=== PATIENT | male | born 1975 | race Two or more races ===

== ENCOUNTER 2024-04-13 13:58 | Inpatient (IN) | payer BC, OTHER ==
[~2024-04-13] VITALS: Ht 180.3 cm; Wt 142.4 kg
--- NOTE | 2024-04-13 15:22 | ED.PDOC ---
GI ASSESSMENT HPI Comments TAMY: HPI: Poor Historian. HPI: 48 y/o M, presents to the ED for CC of abdominal pain. Patient states, that he has been experiencing abdominal pain [id number] with associated symptoms of diarrhea [id number]. Patient comments on, symptoms of abdominal distension that is firm to touch which is usually soft upon palpation. Patient relays, diarrhea to be yellow in appearance. Patient relays, shortness of breath with light exertion. Patient denies fever, chills, body-aches, or N/V/D. No other symptoms or modifying factors at this time. Initial Vital Signs: Temp : 97.2 BP: 135/110 HR: 113 RR: 16 SpO2: 97 Past Medical History: Denies any Past Surgical History: Denies any Social History: Denies smoking, ETOH, or drug use. Medications: Denies any Allergies: NKDA REVIEW OF SYSTEMS: CONSTITUTIONAL: Denies acute: fever, diaphoresis, chills, generalized weakness. HEAD: Denies acute: headache, photophobia Eyes: Denies acute: Double vision, vision loss, eye pain, eye discharge. EARS: Denies acute: tinnitus, hearing loss, ear discharge, ear pain, THROAT: Denies acute: sore throat, swelling, difficulty swallowing , pain with swallowing, change in voice. NECK: Denies acute: neck pain, neck swelling, stiff neck. HEART: Denies acute : chest pain, palpitations, LUNGS: Denies acute: SOB, wheezing, cough, hemoptysis ABDOMEN: Denies acute: Nausea, Vomiting, melena , hematemesis, hematochezia SKIN: Denies acute: rash, redness, lesions, itchiness. EXTREMITIES: Denies acute: calf pain, numbness, tingling, weakness, denies pain in extremity. Denies acute: Low back pain. Neuro: Denies acute: focal neurological deficit, motor or sensory focal neurological deficit, tremors, seizure like activity, confusion, dizziness, change in mental status, loss of bowel or bladder function, cauda equina like symptoms. : Denies acute: dysuria, hematuria, flank pain, increase in urinary frequency. PSYCH: Denies acute: hallucination, suicidal ideation, homicidal ideation. PHYSICAL EXAM: General: no acute distress, awake and alert. Head: normocephalic, atraumatic. Neck: supple, trachea is midline, no swelling. Throat: Normal phonation. Eyes:, no erythema, no purulent discharge, no proptosis, no icterus. Heart: regular rate, regular rhythm, no significant murmur appreciated. Lungs: no apparent respiratory distress, Able to speak in full sentences. No wheezing, no rhonchi, no crackles. No stridors Clear to auscultation bilaterally. Abdomen: Epigastric tender to palpation, non distended, soft, no guarding, no rebound, + bowel sounds. Obese Neuro: Awake, Alert, oriented to name, self, situation, follows commands GCS=15. Speech is normal. Skin: no petechia, no purpura, no cyanosis, non-pale, not jaundice. Lower extremities: --trace- Pitting edema no deformity, no focal swelling, no calf TTP. Makes eye contact. moves all four extremities. Face: no apparent facial droop. Ambulating independently in the ED. ED COURSE: Chief Complaint: Abdominal Pain Time Seen by MD: 15:00 Reviewed Notes: Nurses Notes, Medications, Allergies Allergies: Coded Allergies: NO KNOWN ALLERGIES (Unverified , 04/13/24) Information Source: Patient Mode of Arrival: Ambulatory Timing: Weeks Duration: Since onset Prehospital treatment: None Quality: None Vomitus: None Stool: Watery, Yellow Severity: Moderate Recent: None Recent Hx of: None Pain Location: Epigastric Modifying Factors: Nothing Associated sign and symptoms: None Was a procedure done? Was a procedure done?: No GI differential Dx Differential Diagnosis: Other (DDX include but not limited to diverticulitis, colitis, gastroenteritis, acute abdomen, SBO, enteritis, constipation, volvulus, appendicitis, Gallbladder disease, choledocolithiasis, ascending cholangitis, pancreatitis, intraAbdominal mass/neoplasm, hepatitis, UTI, pylonephritis, kidney stone, aneurysm, dissection, Inflammatory bowel disease, gastroparesis, ischemic bowel.) X-Ray, Labs, Meds, VS Vital Signs Date Time Temp Pulse Resp B/P (MAP) Pulse Ox O2 Delivery O2 Flow Rate FiO2 04/13/24 15:12 97.2 113 16 146/102 (117) 97 Lab Test 04/13/24 16:00 04/13/24 15:29 Range/Units Urine Color Yellow Yellow Urine Clarity Turbid H Clear Urine pH 6.0 5.0-9.0 Urine Specific [place] 1.035 1.001-1.035 Urine Protein 1+ H Negative Urine Ketones Negative Negative Urine Blood Negative Negative /uL Urine Nitrite Negative Negative Urine Bilirubin 1+ Negative Urine Urobilinogen 8 H Negative mg/dL Urine Leukocyte Esterase 2+ Negative /uL Urine RBC 9 0 - 3 /hpf Urine Microscopic WBC 45 H 0-3 /HPF Urine Squamous Epithelial Cells Few <5 /hpf Urine Bacteria None seen None Seen /hpf Urine Hyaline Casts Few 0 - 2 /lpf Urine Mucus Many None Seen Urine Glucose Normal Normal mg/dL White Blood Count 10.8 4.4-10.8 10^3/uL Red Blood Count 5.19 4.5-5.90 10^6/uL Hemoglobin 13.8 13.5-17.5 g/dL Hematocrit 41.0 41.0-53.0 % Mean Corpuscular Volume 79.0 L 80.0-100.0 fL Mean Corpuscular Hemoglobin 26.6 L 28.0-32.0 pg Mean Corpuscular Hemoglobin Concent 33.7 32.0-36.0 g/dL Red Cell Distribution Width 14.0 11.8-14.3 % Platelet Count 476 H 140-450 10^3/uL Mean Platelet Volume 8.5 6.9-10.8 fL Neutrophils (%) (Auto) 76.8 37.0-80.0 % Lymphocytes (%) (Auto) 12.1 10.0-50.0 % Monocytes (%) (Auto) 9.1 0.0-12.0 % Eosinophils (%) (Auto) 1.3 0.0-7.0 % Basophils (%) (Auto) 0.7 0.0-2.0 % Neutrophils # (Auto) 8.3 1.6-8.6 10 ^3/uL Lymphocytes # (Auto) 1.3 0.4-5.4 10 ^3/uL Monocytes # (Auto) 1.0 0-1.3 10 ^3/uL Eosinophils # (Auto) 0.1 0-0.8 10 ^3/uL Basophils # (Auto) 0.1 0-0.2 10 ^3/uL Nucleated Red Blood Cells 0.3 % Sodium Level 135 L 136-145 mmol/L Potassium Level 4.3 3.5-5.1 mmol/L Chloride Level 100 98-107 mmol/L Carbon Dioxide Level 26 20-31 mmol/L Anion Gap 9 5-15 Blood Urea Nitrogen 20 9-23 mg/dL Creatinine 1.24 0.700-1.30 mg/dL Glomerular Filtration Rate Calc 72 >90 mL/min BUN/Creatinine Ratio 16.1 10.0-20.0 Serum Glucose 103 74-106 mg/dL Lactic Acid Level 1.2 0.4-2.0 mmol/L Calcium Level 9.1 8.7-10.4 mg/dL Total Bilirubin 0.6 0.2-1.0 mg/dL Aspartate Amino Transferase (AST) 13 13-40 U/L Alanine Aminotransferase (ALT) 10 7-40 U/L Alkaline Phosphatase 76 46-116 U/L B-Type Natriuretic Peptide 13.48 0-100 pg/mL Total Protein 6.7 5.7-8.2 g/dL Albumin 3.9 3.2-4.8 g/dL Lipase 31 12-53 U/L [place] [address] Ph: [phone] DIAGNOSTIC IMAGING Diagnostic Imaging Report : [id number] Signed PATIENT: MARGE MORELOS ACCT: [id number] UNIT: [id number] : 1975 LOC: ER ROOM / BED: / AGE / SEX: 48 / M ADM STATUS: REG ER SERVICE 1508 ORDERING PHYSICIAN: JOE CONTRERAS DO PROCEDURE(s): ABPL - CT AB PEL WO CON-NO ORAL OR IV REASON: abd pain ORDER NUMBER(s): [id number], ACCESSION NUMBER(s): [id number] Exam: CT CT AB PEL WO CON-NO ORAL OR IV History: abd pain Comparison Study: None Technique: Multidetector spiral CT of the abdomen and pelvis was performed from lung bases to pubic symphysis. Imaging was performed without IV contrast. Axial, coronal and sagittal multiplanar reformats were obtained from the axial data set by the technologist. Radiation dose : Abdomen/Pelvis: CTDIvol 25.78 mGy, DLP 1624.26 mGy*cm. Findings: Evaluation of solid organs is limited due to lack of intravenous contrast use. Lung Bases: No acute or significant lung base finding. Normal heart size. No pleural or pericardial effusion. Liver: The liver is normal in size. No focal lesions. Gallbladder and biliary Tree: Unremarkable Spleen: Unremarkable Pancreas: The pancreas is grossly normal in appearance. Adrenal Glands: Unremarkable Kidneys: Kidneys are grossly normal without calculi or hydronephrosis. Bladder: Grossly unremarkable for degree of distention. Bowel: The stomach is grossly normal in appearance. There is wall thickening in the sigmoid colon 74 mm segment. The appendix is not visualized; however, no secondary findings of acute appendicitis identified. Ascites: Large amount of abdominal and pelvic ascites. Lymphadenopathy: Prominent lymph nodes at the aortic bifurcation and along the left iliac chain measuring up to 16 mm in short axis. Abdominal wall and Mesentery: Extensive mesenteric stranding and nodularity. Vasculature: The visualized abdominal aorta is normal in size and caliber. Evaluation of abdominal and pelvic vessels is limited due to lack of intravenous contrast. Pelvic Organs: Unremarkable Musculoskeletal: No aggressive focal bony lesions, acute fractures or dislocation. IMPRESSION: 1. Focal wall thickening in the sigmoid colon concerning for colonic malignancy. Adjacent stranding, superimposed infectious/inflammatory process is not entirely excluded. Prominent lymph nodes in the upper pelvis near the aortic bifurcation and along the left iliac chain concerning for metastatic disease. Likely malignant ascites. Mesenteric nodularity could represent metastatic disease. Evaluation of the solid organs is limited without intravenous contrast. Consider further evaluation with CT of the chest, abdomen and pelvis with contrast. Alternatively recommend PET-CT. GI evaluation with colonoscopy and biopsy is recommended. Diagnostic paracentesis may provide malignant diagnosis. Radiation optimization: All CT scans at this facility use at least one of these dose optimization techniques: Automated exposure control mA and/or kV adjustment per patient size (includes targeted exams where dose is matched to clinical indication) or iterative reconstruction. HS:Y ATED BY: NETO WANG MD DICTATED DATE/TIME: 04/13/24 154 SIGNED BY: NETO WANG MD SIGNED DATE/TIME: 04/13/24 1547 CC: Time of 1ST Reevaluation: 15:30 Reevaluation 1ST: Unchanged Time of 2ND Reevaluation: 17:19 (The case was discussed with the General surgery on-call team (HPI, physical exam, labs and diagnostic tests that were available at the time of disposition, ED course, treatment plan) on the phone. They agreed with our management recommend to keep the patient NPO after midnight and IV antibiotics and they will follow in consult. Dr. Alexander. ) Patient Education/Counseling: Diagnosis, Treatment Family Education/Counseling: No Family Present Comments Patient presented with the above HPI.---ABDOMINAL PAIN ---workup was initiated. patient was found with the above mentioned diagnosis. the following medications were ordered: please refer to order lists of meds and tests obtained by myself Dr. Contreras. Patient ED course and VS have been stabilized. Patient has been reassessed in the ED and remained in a stable condition. Pertinent incidental findings were discussed with the patient and/or family. Patient/family voices understanding and is agreeable with plan. Patient has been observed in the ED adequate length of time to insure improvement/stability. Escalation of care considered: Consideration of escalation to observation or admission Patient was ADMITTED to the medicine team for further evaluation and treatment of their presentation. General surgery was consulted Dr. Alexander came and evaluated the patient at bedside. All the reports of any imaging studies that were ordered by myself were reviewed by myself. Departure 1 Departure Time of Disposition: 17:09 Impression: Primary Impression: Metastatic disease Disposition: ADMITTED INPATIENT Condition: Guarded Additional Instructions: [place] [address] Ph: [phone] DIAGNOSTIC IMAGING Diagnostic Imaging Report : [id number] Signed PATIENT: MARGE MORELOS ACCT: [id number] UNIT: [id number] : 1975 LOC: ER ROOM / BED: / AGE / SEX: 48 / M ADM STATUS: REG ER SERVICE 1505 ORDERING PHYSICIAN: JOE CONTRERAS DO PROCEDURE(s): ABPL - CT AB PEL WO CON-NO ORAL OR IV REASON: abd pain ORDER NUMBER(s): [id number], ACCESSION NUMBER(s): [id number] Exam: CT CT AB PEL WO CON-NO ORAL OR IV History: abd pain Comparison Study: None Technique: Multidetector spiral CT of the abdomen and pelvis was performed from lung bases to pubic symphysis. Imaging was performed without IV contrast. Axial, coronal and sagittal multiplanar reformats were obtained from the axial data set by the technologist. Radiation dose : Abdomen/Pelvis: CTDIvol 25.78 mGy, DLP 1624.26 mGy*cm. Findings: Evaluation of solid organs is limited due to lack of intravenous contrast use. Lung Bases: No acute or significant lung base finding. Normal heart size. No pleural or pericardial effusion. Liver: The liver is normal in size. No focal lesions. Gallbladder and biliary Tree: Unremarkable Spleen: Unremarkable Pancreas: The pancreas is grossly normal in appearance. Adrenal Glands: Unremarkable Kidneys: Kidneys are grossly normal without calculi or hydronephrosis. Bladder: Grossly unremarkable for degree of distention. Bowel: The stomach is grossly normal in appearance. There is wall thickening in the sigmoid colon 74 mm segment. The appendix is not visualized; however, no secondary findings of acute appendicitis identified. Ascites: Large amount of abdominal and pelvic ascites. Lymphadenopathy: Prominent lymph nodes at the aortic bifurcation and along the left iliac chain measuring up to 16 mm in short axis. Abdominal wall and Mesentery: Extensive mesenteric stranding and nodularity. Vasculature: The visualized abdominal aorta is normal in size and caliber. Evaluation of abdominal and pelvic vessels is limited due to lack of intravenous contrast. Pelvic Organs: Unremarkable Musculoskeletal: No aggressive focal bony lesions, acute fractures or disl ocation. IMPRESSION: 1. Focal wall thickening in the sigmoid colon concerning for colonic malignancy. Adjacent stranding, superimposed infectious/inflammatory process is not entirely excluded. Prominent lymph nodes in the upper pelvis near the aortic bifurcation and along the left iliac chain concerning for metastatic disease. Likely malignant ascites. Mesenteric nodularity could represent metastatic disease. Evaluation of the solid organs is limited without intravenous contrast. Consider further evaluation with CT of the chest, abdomen and pelvis with contrast. Alternatively recommend PET-CT. GI evaluation with colonoscopy and biopsy is recommended. Diagnostic paracentesis may provide malignant diagnosis. Radiation optimization: All CT scans at this facility use at least one of these dose optimization techniques: Automated exposure control mA and/or kV adjustment per patient size (includes targeted exams where dose is matched to clinical indication) or iterative reconstruction. HS:Y ATED BY: NETO WANG MD DICTATED DATE/TIME: 04/13/24 3722 SIGNED BY: NETO WANG MD SIGNED DATE/TIME: 04/13/241546 CC: Discharged With: Self Critical Care Note Critical Care Time?: No Heart Score Heart Score: Heart Score Response (Comments) Value History N/A 0 EKG N/A 0 Age N/A 0 Risk Factors N/A 0 Troponin N/A 0 Total 0 I personally scribed for JOE CONTRERAS DO ([email or web address]) on 04/13/24 at 15:21. Electronically submitted by Sapna Kuo ([email or web address]). I personally scribed for OJE CONTRERAS DO ([email or web address]) on 04/13/24 at 16:02. Electronically submitted by Nir Weathers ([email or web address]). I personally scribed for JOE CONTRERAS DO ([email or web address]) on 04/13/24 at 17:12. Electronically submitted by Sapna Kuo ([email or web address]). JOE CONTRERAS DO Apr 13, 2024 15:21
--- NOTE | 2024-04-13 15:49 | DVH ---
Exam: CT CT AB PEL WO CON-NO ORAL OR IV History: abd pain Comparison Study: None Technique: Multidetector spiral CT of the abdomen and pelvis was performed from lung bases to pubic symphysis. Imaging was performed without IV contrast. Axial, coronal and sagittal multiplanar reform ats were obtained from the axial data set by the technologist. Radiation dose : Abdomen/Pelvis: CTDIvol 25.78 mGy, DLP 1624.26 mGy*cm. Findings: Evaluation of solid organs is limited due to lack of intravenous contrast use. Lung Bases: No acute or significant lung base finding. Normal heart size. No pleural or pericardial effusion. Liver: The liver is normal in size. No focal lesions. Gallbladder and biliary Tree: Unremarkable Spleen: Unremarkable Pancreas: The pancreas is grossly normal in appearance. Adrenal Glands: Unremarkable Kidneys: Kidneys are grossly normal without calculi or hydronephrosis. Bladder: Grossly unremarkable for degree of distention. Bowel: The stomach is grossly normal in appearance. There is wall thickening in the sigmoid colon 74 mm segment. The appendix is not visualized; however, no secondary findings of acute appendicitis [place] ntified. Ascites: Large amount of abdominal and pelvic ascites. Lymphadenopathy: Prominent lymph nodes at the aortic bifurcation and along the left iliac chain measu ring up to 16 mm in short axis. Abdominal wall and Mesentery: Extensive mesenteric stranding and nodularity. Vasculature: The visualized abdominal aorta is normal in size and caliber. Evaluation of abdominal a nd pelvic vessels is limited due to lack of intravenous contrast. Pelvic Organs: Unremarkable Musculoskeletal: No aggressive focal bony lesions, acute fractures or dislocation. IMPRESSION: 1. Focal wall thickening in the sigmoid colon concerning for colonic malignancy. Adjacent stranding, superimposed infectious/inflammatory process is not entirely excluded. Prominent lymph nodes in the upper pelvis near the aortic bifurcation and along the left iliac chain concerning for metastatic dis ease. Likely malignant ascites. Mesenteric nodularity could represent metastatic disease. Evaluation of the solid organs is limited without intravenous contrast. Consider further evaluation with CT of t he chest, abdomen and pelvis with contrast. Alternatively recommend PET-CT. GI evaluation with colon oscopy and biopsy is recommended. Diagnostic paracentesis may provide malignant diagnosis. Radiation optimization: All CT scans at this facility use at least one of these dose optimization emerald hniques: Automated exposure control mA and/or kV adjustment per patient size (includes targeted exams where dose is matched to clinical indication) or iterative reconstruction. HS:Y
[2024-04-13 15:50] LABS: Basophils # (auto) 0.1 10 ^3/uL (0-0.2); Eosinophils # (auto) 0.1 10 ^3/uL (0-0.8); Eosinophils % (auto) 1.3 % (0.0-7.0); Lymphocytes # (auto) 1.3 10 ^3/uL (0.4-5.4); Mean Corpuscular Hgb Conc. 33.7 g/dL (32.0-36.0)
[2024-04-13 15:51] LABS: Basophils % (auto) 0.7 % (0.0-2.0); Hemoglobin 13.8 g/dL (13.5-17.5); Lymphocytes % (auto) 12.1 % (10.0-50.0); Mean Corpuscular Hemoglobin 26.6 pg (28.0-32.0); Monocytes % (auto) 9.1 % (0.0-12.0); Neutrophils # (auto) 8.3 10 ^3/uL (1.6-8.6); Neutrophils % (auto) 76.8 % (37.0-80.0); Nucleated Red Blood Cells % 0.3 %; Platelet Count (auto) 476 10^3/uL (140-450); Red Blood Cells 5.19 10^6/uL (4.5-5.90); White Blood Cell 10.8 10^3/uL (4.4-10.8)
[2024-04-13 16:19] LABS: Alanine Aminotransferase 10 U/L (7-40); Albumin 3.9 g/dL (3.2-4.8); Alkaline Phosphatase 76 U/L (46-116); Anion Gap 9 (5-15); Aspartate Aminotransferase 13 U/L (13-40); BUN/Creatinine Ratio 16.1 (10.0-20.0); Bilirubin, Total 0.6 mg/dL (0.2-1.0); Blood Urea Nitrogen 20 mg/dL (9-23); Calcium 9.1 mg/dL (8.7-10.4); Carbon Dioxide 26 mmol/L (20-31); Chloride 100 mmol/L (98-107); Glucose 103 mg/dL (74-106); Lipase 31 U/L (12-53); Potassium 4.3 mmol/L (3.5-5.1); Sodium 135 mmol/L (136-145); Total Protein 6.7 g/dL (5.7-8.2)
[2024-04-13 16:40] LABS: Urine Bacteria None Seen /hpf (None Seen)
[2024-04-13 16:56] LABS: Urine Blood Negative /uL (Negative); Urine Clarity Turbid (Clear); Urine Color Yellow (Yellow); Urine Hyaline Cast FEW /lpf (0 - 2); Urine Mucus MANY (None Seen); Urine Protein, UAD 1+ (Negative); Urine Specific Gravity 1.035 (1.001-1.035); Urine Squamous Epithelial Cell FEW /hpf (<5); Urine Urobilinogen 8 mg/dL (Negative); Urine WBC 45 /HPF (0-3)
--- NOTE | 2024-04-13 19:39 | DVHINCON2 ---
Date of service: Apr 13, 2024 Allergies: Coded Allergies: NO KNOWN ALLERGIES (Unverified , 04/13/24) Vital Signs Vital Signs Date Time Temp Pulse Resp B/P (MAP) Pulse Ox O2 Delivery O2 Flow Rate FiO2 04/13/24 15:12 97.2 113 16 146/102 (117) 97 Labs/Diagnostic Data Labs Test 04/13/24 16:00 04/13/24 15:29 Range/Units Urine Color Yellow Yellow Urine Clarity Turbid H Clear Urine pH 6.0 5.0-9.0 Urine Specific [place] 1.035 1.001-1.035 Urine Protein 1+ H Negative Urine Ketones Negative Negative Urine Blood Negative Negative /uL Urine Nitrite Negative Negative Urine Bilirubin 1+ Negative Urine Urobilinogen 8 H Negative mg/dL Urine Leukocyte Esterase 2+ Negative /uL Urine RBC 9 0 - 3 /hpf Urine Microscopic WBC 45 H 0-3 /HPF Urine Squamous Epithelial Cells Few <5 /hpf Urine Bacteria None seen None Seen /hpf Urine Hyaline Casts Few 0 - 2 /lpf Urine Mucus Many None Seen Urine Glucose Normal Normal mg/dL White Blood Count 10.8 4.4-10.8 10^3/uL Red Blood Count 5.19 4.5-5.90 10^6/uL Hemoglobin 13.8 13.5-17.5 g/dL Hematocrit 41.0 41.0-53.0 % Mean Corpuscular Volume 79.0 L 80.0-100.0 fL Mean Corpuscular Hemoglobin 26.6 L 28.0-32.0 pg Mean Corpuscular Hemoglobin Concent 33.7 32.0-36.0 g/dL Red Cell Distribution Width 14.0 11.8-14.3 % Platelet Count 476 H 140-450 10^3/uL Mean Platelet Volume 8.5 6.9-10.8 fL Neutrophils (%) (Auto) 76.8 37.0-80.0 % Lymphocytes (%) (Auto) 12.1 10.0-50.0 % Monocytes (%) (Auto) 9.1 0.0-12.0 % Eosinophils (%) (Auto) 1.3 0.0-7.0 % Basophils (%) (Auto) 0.7 0.0-2.0 % Neutrophils # (Auto) 8.3 1.6-8.6 10 ^3/uL Lymphocytes # (Auto) 1.3 0.4-5.4 10 ^3/uL Monocytes # (Auto) 1.0 0-1.3 10 ^3/uL Eosinophils # (Auto) 0.1 0-0.8 10 ^3/uL Basophils # (Auto) 0.1 0-0.2 10 ^3/uL Nucleated Red Blood Cells 0.3 % Sodium Level 135 L 136-145 mmol/L Potassium Level 4.3 3.5-5.1 mmol/L Chloride Level 100 98-107 mmol/L Carbon Dioxide Level 26 20-31 mmol/L Anion Gap 9 5-15 Blood Urea Nitrogen 20 9-23 mg/dL Creatinine 1.24 0.700-1.30 mg/dL Glomerular Filtration Rate Calc 72 >90 mL/min BUN/Creatinine Ratio 16.1 10.0-20.0 Serum Glucose 103 74-106 mg/dL Lactic Acid Level 1.2 0.4-2.0 mmol/L Calcium Level 9.1 8.7-10.4 mg/dL Total Bilirubin 0.6 0.2-1.0 mg/dL Aspartate Amino Transferase (AST) 13 13-40 U/L Alanine Aminotransferase (ALT) 10 7-40 U/L Alkaline Phosphatase 76 46-116 U/L B-Type Natriuretic Peptide 13.48 0-100 pg/mL Total Protein 6.7 5.7-8.2 g/dL Albumin 3.9 3.2-4.8 g/dL Lipase 31 12-53 U/L Assessment [id number] R/O SIGMOID COLITIS R/O COLONIC MALIGNANCY KEEP NPO IV ABX CLOSE OBSERVATION GI EVAL Plan discussed with: Patient JOEL BURNETT MD Apr 13, 2024 19:39
[2024-04-13 19:48] VITALS: PULSE 109; RESP 18; O2SAT 98
--- NOTE | 2024-04-13 20:18 | DVHINCON2 ---
DATE OF CONSULTATION: 04/13/2024 HISTORY OF PRESENT ILLNESS: This 48-year-old, coming in with abdominal pain, going on for 2 or 3 weeks, but got worse, came to the Emergency Room. Some nausea. No vomiting. He has some diarrhea off-and-on with bleeding as well. No fever or chills. No hematemesis. PAST MEDICAL HISTORY: No diabetes or hypertension. PAST SURGICAL HISTORY: No significant surgical history. PHYSICAL EXAMINATION: VITAL SIGNS: Afebrile, stable signs. HEENT: With no evidence of pallor, cyanosis, or jaundice. NECK: Supple, nontender with no thyromegaly or lymphadenopathy. CHEST AND LUNGS: Clear. HEART: Within normal limits. ABDOMEN: Soft. He is tender, but no rebound. EXTREMITIES: Unremarkable. NEUROLOGIC: Intact. DIAGNOSTIC DATA: The CT scan is suggesting that there is thickening of the sigmoid colon with a concern for colonic malignancy. There is also adjacent stranding suggesting inflammatory reason for the colonic thickening, and lymph nodes were also identified with a possibility of metastatic disease and the possibility of malignant ascites. PLAN: So, based upon this, the patient needs to be managed conservatively. At this time, he needs to be kept n.p.o., manage the possible infection, and then GI evaluation to determine the need for a colonoscopy and ongoing evaluation for a possibility of surgery as indicated. MD ANALI Cabrera/RENY TID: [id number] RECEIPT: [id number] cc: JOE CONTRERAS
[2024-04-13] MEDS: PIPERACILLIN-TAZOB 3.375GM 100 ML IV ONE (20:21)
[2024-04-13] MEDS: SODIUM CHLORIDE 0.9% 1,000 ML IV ONE (21:15)
--- NOTE | 2024-04-13 21:43 | DVH ---
INDICATION: ASCITES TECHNIQUE: Multiple grayscale sonographic images obtained for evaluation of ascites. COMPARISON: CT abdomen and pelvis 04/13/2023 FINDINGS /impression: Moderate to large volume ascites noted in all 4 abdominal quadrants.
[2024-04-13] MEDS: CIPROFLOXACIN 400MG/200ML 200 ML IV SCH (23:36)
[2024-04-14] MEDS: ACETAMINOPHEN 325 MG TAB PO SCH
[2024-04-14] MEDS: metroNIDAZOLE 500MG/100ML 100 ML IV SCH (00:54)
--- NOTE | 2024-04-14 02:20 | DVHHPRES ---
History of Present Illness Resident Creating Document: GREGORIO ROWLEY RESIDENT Reason for Visit: abdominal pain History of Present Illness A 48-year-old male with no known past medical history presents with a two-week history of worsening abdominal distention and approximately one month of intermittent diarrhea, sometimes bloody. He also reports abdominal pain that has become progressively more severe over the past two to three weeks, as well as occasional nausea but no vomiting. He denies fever, chills, or any significant weight loss He does note some shortness of breath on light exertion. He has no known medication use, denies any allergies, and denies smoking, alcohol, or illicit drug use. Review of Systems Constitutional: No: Fever, Chills, Sweats, Weakness, Malaise, Other Eyes: No: Pain, Vision change, Conjunctivae inflammation, Eyelid inflammation, Other, Redness ENT: No: Ear pain, Ear discharge, Nose pain, Nose discharge, Nose congestion, Mouth pain, Mouth swelling, Throat pain, Throat swelling, Other Respiratory: No: Cough, Dry, Shortness of breath, SOB with excertion, Wheezing, Hemoptysis, Pleuritic Pain, Sputum, Wheezing, Other Cardiovascular: No: Chest Pain, Palpitations, Orthopnea, Paroxysmal Noc. Dyspnea, Edema, Lt Headedness, Other Gastrointestinal: Nausea, Abdominal Pain, Diarrhea, Hematochezia; No: Vomiting, Constipation, Melena, Other Genitourinary: No Dysuria, No Frequency, No Incontinence, No Hematuria, No Retention, No Other Musculoskeletal: No: other, neck pain, shoulder pain, arm pain, back pain, hand pain, leg pain, foot pain Skin: No: Rash, Lesions, Jaundice, Bruising, Other Neurological: No: Weakness, Numbness, Incoordination, Change in speech, Confusion, Seizures, Other Allergies: Coded Allergies: NO KNOWN ALLERGIES (Unverified , 04/13/24) Medications Current Medications Medications Dose Ordered Sig/Tamy Route Start Time Stop Time Status Last Admin Dose Admin Acetaminophen 325 mg Q6HP PO 04/14/24 00:00 Metronidazole 100 ml @ 100 mls/hr Q8HR IV 04/13/24 22:00 04/14/24 00:54 100 MLS/HR Ciprofloxacin 200 ml @ 200 mls/hr Q8HR IV 04/13/24 22:00 04/13/24 23:36 200 MLS/HR Exam Vital Signs Vital Signs Date Time Temp Pulse Resp B/P (MAP) Pulse Ox O2 Delivery O2 Flow Rate FiO2 04/14/24 00:50 98.6 101 18 137/91 (106) 96 98.6 04/13/24 19:48 Room Air* 0 21 General Appearance: Alert, Oriented X3, Cooperative, No acute distress HEENT: Atraumatic, PERRLA, EOMI Respiratory: Clear to auscultation, Normal air movement Cardiovascular: Regular rate, Normal S1 Abdominal: Other (distended, tender at generalized palpation, no peritoneal signs ) Extremities: No clubbing, No cyanosis Skin: No rashes, No breakdown Neuro: Normal gait, Normal speech Psych/Mental Status: Mental status NL, Mood NL Labs/Xrays Labs Test 04/13/24 21:56 04/13/24 16:00 04/13/24 15:29 Range/Units Carcinoembryonic Antigen 18.71 <=5.0 ng/mL Urine Color Yellow Yellow Urine Clarity Turbid H Clear Urine pH 6.0 5.0-9.0 Urine Specific [place] 1.035 1.001-1.035 Urine Protein 1+ H Negative Urine Ketones Negative Negative Urine Blood Negative Negative /uL Urine Nitrite Negative Negative Urine Bilirubin 1+ Negative Urine Urobilinogen 8 H Negative mg/dL Urine Leukocyte Esterase 2+ Negative /uL Urine RBC 9 0 - 3 /hpf Urine Microscopic WBC 45 H 0-3 /HPF Urine Squamous Epithelial Cells Few <5 /hpf Urine Bacteria None seen None Seen /hpf Urine Hyaline Casts Few 0 - 2 /lpf Urine Mucus Many None Seen Urine Glucose Normal Normal mg/dL White Blood Count 10.8 4.4-10.8 10^3/uL Red Blood Count 5.19 4.5-5.90 10^6/uL Hemoglobin 13.8 13.5-17.5 g/dL Hematocrit 41.0 41.0-53.0 % Mean Corpuscular Volume 79.0 L 80.0-100.0 fL Mean Corpuscular Hemoglobin 26.6 L 28.0-32.0 pg Mean Corpuscular Hemoglobin Concent 33.7 32.0-36.0 g/dL Red Cell Distribution Width 14.0 11.8-14.3 % Platelet Count 476 H 140-450 10^3/uL Mean Platelet Volume 8.5 6.9-10.8 fL Neutrophils (%) (Auto) 76.8 37.0-80.0 % Lymphocytes (%) (Auto) 12.1 10.0-50.0 % Monocytes (%) (Auto) 9.1 0.0-12.0 % Eosinophils (%) (Auto) 1.3 0.0-7.0 % Basophils (%) (Auto) 0.7 0.0-2.0 % Neutrophils # (Auto) 8.3 1.6-8.6 10 ^3/uL Lymphocytes # (Auto) 1.3 0.4-5.4 10 ^3/uL Monocytes # (Auto) 1.0 0-1.3 10 ^3/uL Eosinophils # (Auto) 0.1 0-0.8 10 ^3/uL Basophils # (Auto) 0.1 0-0.2 10 ^3/uL Nucleated Red Blood Cells 0.3 % Sodium Level 135 L 136-145 mmol/L Potassium Level 4.3 3.5-5.1 mmol/L Chloride Level 100 98-107 mmol/L Carbon Dioxide Level 26 20-31 mmol/L Anion Gap 9 5-15 Blood Urea Nitrogen 20 9-23 mg/dL Creatinine 1.24 0.700-1.30 mg/dL Glomerular Filtration Rate Calc 72 >90 mL/min BUN/Creatinine Ratio 16.1 10.0-20.0 Serum Glucose 103 74-106 mg/dL Lactic Acid Level 1.2 0.4-2.0 mmol/L Calcium Level 9.1 8.7-10.4 mg/dL Total Bilirubin 0.6 0.2-1.0 mg/dL Aspartate Amino Transferase (AST) 13 13-40 U/L Alanine Aminotransferase (ALT) 10 7-40 U/L Alkaline Phosphatase 76 46-116 U/L B-Type Natriuretic Peptide 13.48 0-100 pg/mL Total Protein 6.7 5.7-8.2 g/dL Albumin 3.9 3.2-4.8 g/dL Lipase 31 12-53 U/L Assessment/Plan Assessment/Plan CT Abdomen/Pelvis: Focal wall thickening in the sigmoid colon concerning for colonic malignancy. Adjacent stranding suggests possible superimposed infl ammatory/infectious process. Prominent lymph nodes near the aortic bifurcation and left iliac chain, suspicious for metastatic disease. Possible malignant ascites #Suspected colonic malignancy #Possible metastatic disease given enlarged lymph nodes and possible ascites. #Possible colitis #GI bleeding: hematochezia due to possible colon Ca Admit Med/Surg NPO IV Fluids IV ciprofloxacin and metronidazole GI consultation for definitive evaluation (colonoscopy and biopsy) to confirm malignancy or other pathology. Surgery consultation to assess potential need for operative intervention depending on biopsy results and overall clinical status. Further imaging: Obtain contrast-enhanced CT of the chest, abdomen, and pelvis) to stage disease and evaluate for metastatic spread. Tumor markers and stool studies: Await results (AFP, CA 19-9, stool WBC/culture, occult blood) to guide further management. Paracentesis if ascites is significant, to differentiate malignant from infectious or cirrhotic etiologies. Case discussed with Dr Valenzuela Time spent on care 23 min Full code Plan discussed with: Patient, Other (rn) My Orders Orders - GREGORIO ROWLEY RESIDENT Procedure Category Date Status Time Admit ADMIT 04/13/24 Transmitted 21:03 Npo After Midnight DIET 04/14/24 Transmitted Breakfast Sodium Chloride 0.9% PHA 04/13/24 In Process 21:15 Stool Occult Blood LAB 04/13/24 Logged 21:03 Stool Wbc LAB 04/13/24 Logged 21:03 Stool Bacterial CHUNG 04/13/24 Logged Culture 21:03 * Gi [employer] CONS 04/13/24 Transmitted 21:03 Carbohydrate Antigen LAB 04/13/24 In Process 19-9 Afp Serum Tumor Marker LAB 04/13/24 In Process 21:03 Acetaminophen Tablet PHA 04/14/24 In Process (Tylenol Tablet) 00:00 Metronidazole PHA 04/13/24 In Process 500mg/100ml (Flagyl 22:00 Paracentesis US 04/14/24 Logged 07:00 Ciprofloxacin PHA 04/13/24 In Process 400mg/200ml (Cipro Iv) 22:00 Ct Chest/Ab/Pl W Con- CT 04/13/24 Taken Iv Only 21:42 Date of Service: Apr 13, 2024 Billing Provider: NEELIMA VALENZUELA MD Common Visit Codes: [id number] INP/OBS CARE (HIGH) GREGORIO ROWLEY RESIDENT Apr 14, 2024 02:20 NEELIMA VALENZUELA MD Apr 14, 2024 08:46
--- NOTE | 2024-04-14 03:11 | DVH ---
Exam: CT CT CHEST/AB/PL W CON- IV ONLY History: RULE OUT MET Comparison Study: 04/13/2024 TECHNIQUE: Multidetector CT of the abdomen was performed from lung bases to pubic symphysis. Imaging was performed following administration of 100 cc of intravenous contrast. Axial, coronal and sagittal multiplanar reformats were obtained from the axial data set by the technologist. Radiation optimization: All CT scans at this facility use at least one of these dose optimization emerald hniques: automated exposure control mA and/or kV adjustment per patient size (includes targeted exam s where dose is matched to clinical indication) or iterative reconstruction. Radiation Dose Information: CT Dose: CTDI volume is 26.93 mGy. Dose-length product is 2081.04 mGy*cm FINDINGS: Imaged portions of the lung bases demonstrate subsegmental atelectasis in the right lung base. There are a few notable cardiophrenic lymph nodes measuring up to 0.6 cm in short axis. The liver, spleen, pancreas and adrenal glands appear unremarkable. Kidneys appear symmetric without hydronephrosis. There is redemonstration of a segment of sigmoid colonic wall circumferential wall thickening measuri ng approximately 11 cm in length. No evidence obstruction or perforation. There is moderate to large volume ascites with innumerable omental nodules. Prominent bilateral ingui nal lymph nodes measure up to 1.6 cm in short axis on the right. There is an external iliac lymph nod e measuring 1.2 cm on the right left internal iliac lymph node measures 1.6 cm on the left. 1.8 cm ly mph node at the iliac bifurcation. No suspicious osseous lesion. IMPRESSION: 1. Circumferential mass within the sigmoid colon concerning for primary malignancy, approximately 11 cm segment 2. Findings consistent with omental caking, metastasis. 3. Multiple enlarged iliac and inguinal lymph nodes favor metastatic disease. HS:Y
[2024-04-14 07:30] VITALS: PULSE 104; RESP 19; O2SAT 95
[2024-04-14 08:00] VITALS: BP 146/91; PULSE 104; RESP 19; TEMP 98.7; O2SAT 95
[2024-04-14 08:39] LABS: INR 1.12 (0.9-1.15); Partial Thromboplastin Time 30.1 SEC (24.5-34.5); Prothrombin Time 11.7 sec (9.3-11.8)
--- NOTE | 2024-04-14 09:54 | DVH ---
US PARACENTESIS, HISTORY: ASCITES r/o malignancy PROCEDURE: Informed consent was obtained. The patient was placed in supine position. A limited locali zation ultrasound of the abdomen was obtained, and the skin site over the largest pocket of fluid was marked and entry site was prepped with chlorhexidine which was allowed to dry and draped in the usua l sterile fashion. Time out was performed. Following administration of 1% lidocaine local anesthetic, a 5 [place] centesis needle catheter was percutaneously inserted into the peritoneal collection until fluid was aspirated. The catheter was advanced into the fluid collection and the needle removed. Abo ut 5550 cc of fluid was aspirated and specimen sent for appropriate cultures/cytology/cultures and cy tology. The catheter was then removed and a sterile dressing applied. No immediate complication was identified. FINDINGS: Limited ultrasound imaging demonstrates moderate ascites. Aspirated fluid was clear and ser ous. IMPRESSION: US-guided paracentesis with 5.6L removed.
[2024-04-14] MEDS ORDERED: levoFLOXacin 750MG 150 ML IV SCH (10:00)
--- NOTE | 2024-04-14 10:36 | DVHPNRES ---
Progress Note Date Seen: Apr 14, 2024 Resident Creating Document: MELIZA SWEENEY RESIDENT Medical Necessity Reason Pt with a Central, PICC or Fol: No Subjective Review of Systems HPI-patient is 48 years old male with no significant past medical history came with a complaint of worsening abdominal pain for last 2 weeks. As per patient he has been having intermittent abdominal pain crampy in nature for last 1 month which has got worse for last 2 weeks. Patient was associated with diarrhea with the occasional blood. Patient also reported nausea but no vomiting. Patient also reported his abdomen was getting distended lately. Patient denied smoking cigarettes or any family history. Patient denied any chest pain, shortness of breath, fever. Initial lab workup revealed reactive leukocytosis with platelet 476, CEA 18.7. CT pelvis revealed-Focal wall thickening in the sigmoid colon concerning for colonic malignancy. Adjacent stranding, superimposed infectious/inflammatory process is not entirely excluded. Prominent lymph nodes in the upper pelvis near the aortic bifurcation and along the left iliac chain concerning for metastatic disease. Likely malignant ascites. Mesenteric nodularity could represent metastatic disease. Evaluation of the solid organs is limited without intravenous contrast. Abdominal ultrasound revealed-Moderate to large volume ascites noted in all [address] chest revealed - Circumferential mass within the sigmoid colon concerning for primary malignancy, approximately 11 cm segment. Findings consistent with omental caking, metastasis. Multiple enlarged iliac and inguinal lymph nodes favor metastatic disease. PMH-none PSH- none Allergy- NKDA Personal History/ Social History- smokes marijuana Patient was seen today at the bedside. Cardiovascular- deny acute chest pain or shortness of breath or cough or palpitation Respiratory denies cough or short of breath or wheezing Musculoskeletal-denies acute joint swelling or tenderness or redness Neurological- denies acute dysarthria, dysphagia, change in vision Psychiatry- denies depression or SI or HI Skin- denies acute rash or purpura Patient is seen today for clinical evaluation. Labs and chart reviewed. CT abdomen revealed suspected sigmoid colonic malignancy with metastasis. Prominent lymph node in the upper pelvis near the bifurcation of aorta and left iliac chain concerning metastatic disease. Patient reported feeling better afterwards. CT chest revealed -Circumferential mass within the sigmoid colon concerning for primary malignancy, approximately 11 cm segment. Findings consistent with omental caking, metastasis. Multiple enlarged iliac and inguinal lymph nodes favor metastatic disease.Patient had paracentesis this a.m..US- guided paracentesis with 5.6L removed. Patient was seen by switchboard installer and general surgeon. Recommendation reviewed and appreciated. Ordered consult for hemato oncology. Objective vital signs Vital Sign Date Time Temp Pulse Resp B/P (MAP) Pulse Ox O2 Delivery O2 Flow Rate FiO2 04/14/24 08:00 98.7 104 19 146/91 (109) 95 98.7 04/14/24 07:30 Room Air* 0 21 Total Intake and Output 04/13/24 04/13/24 04/14/24 15:00 23:00 07:00 Intake Total 400 ml Balance 400 ml medications Current Medications Medications Dose Ordered Sig/Tamy Route Start Time Stop Time Status Last Admin Dose Admin Acetaminophen 325 mg Q6HP PO 04/14/24 00:00 04/14/24 05:24 325 MG Metronidazole 100 ml @ 100 mls/hr Q8HR IV 04/13/24 22:00 04/14/24 05:24 100 MLS/HR Ceftriaxone Sodium 50 ml @ 100 mls/hr DAILY@09 IV 04/15/24 09:00 Examination General examination- awake, alert, oriented HEENT- PEERLA, no acute nasal discharge Cardiovascular- S1-S2 audible, rate and rhythm regular, no murmur Respiratory- CTAB, no wheeze or rhonchi Gastrointestinal-abdomen distended+, nontender, bowel sound+. 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 Findings consistent with omental caking, metastasis. Multiple enlarged iliac and inguinal lymph nodes favor metastatic disease. Plan -continue ceftriaxone 1 g IV daily Continue metronidazole 500 mg t.i.d. Status post paracentesis, 5.6 L of serous fluid was aspirated Continue other pain management Ordered hemato oncology consult Patient was seen by switchboard installer Patient was seen by surgeon Status post gastroenterology consult, recommendation reviewed and appreciated- possible colonoscopy on Friday as per GI recommendation Pending hemato oncology consult Goals of care/advance care planning; FULL CODE; discussed with the patient >15 minutes PUD prophylaxis: Famotidine DVT prophylaxis: Patient ambulating Plan discussed with Dr. Estes , nursing staff, patient Total time spent on patient evaluation, chart review, assessment and plan, discussion discussion >31 minutes Plan discussed with: Patient Plan discussed with: Patient (RN), Other My Orders My Orders Orders - MELIZA SWEENEY Procedure Category Date Status Time Ceftriaxone 1gm/50ml PHA 04/15/24 In Process D5w (Rocephin) 09:00 Ceftriaxone 1gm/50ml PHA 04/14/24 In Process D5w (Rocephin) 10:30 Date of Service: Apr 14, 2024 Billing Provider: CLAUDE MOREIRA MD Common Visit Codes: [id number] INP/OBS CARE(HIGH) MELIZA SWEENEY Apr 14, 2024 10:36 CLAUDE MOREIRA MD Apr 20, 2024 23:10
[2024-04-14 11:25] LABS: Body Fluid Polymorphonuclear 20 % (0-25); Body Fluid Red Blood Cells 12217 CUMM (0-2000); Body Fluid White Blood Cells 1217 CUMM (0-200)
[2024-04-14] MEDS: cefTRIAXone 1GM/50ML D5W 50 ML IV ONE (11:27)
--- NOTE | 2024-04-14 12:21 | DVHINCON2 ---
GI Consult Consult Note GI consult note Date of Consultation: 03/1924 Chief Complaint: Rule out colon neoplasm Referring Physician: Dr. Mera H&P: 48-year-old male presented to ER with worsening abdominal distention ongoing for two weeks Patient is status post paracentesis with 5.6 L of fluid removed No abdominal pain. No nausea or vomiting Patient admits to loose stool on and off for two weeks, with red blood in stool on and off also Patient gives usual history of regular bowel movements Possible weight loss unsure how much weight loss No colonoscopy in past. No family history of colon cancer. No blood thinners Past Medical History: Denies Past Surgical History: Denies Social History: NO smoking, drinking ETOH and use of illegal drugs. Family History: Noncontributory Review of Systems: Constitutional: no fever, chill, weight loss HEENT: no eye pain, no hearing loss, no oral lesion, no scleral icterus Heart: no chest pain, no chest pressure Lung: no cough, no dyspnea with exertion Abdomen: see HPI Physical exam: General: NAD, AAOX3 Chest: lung cross clear to auscultation Heart: RRR, no murmur Abdomen: Moderate-distended, no tenderness to palpation, +BS Labs: Labs Test 04/14/24 09:00 04/14/24 07:58 04/13/24 21:56 04/13/24 16:00 Range/Units Body Fluid Source Ascities fluid Body Fluid pH 9.0 Body Fluid WBC (Manual) 1217 H 0-200 CUMM Body Fluid RBC (Manual) 11830 H 0-2000 CUMM Body Fluid Mononuclear Cells 80 % Body Fluid Polymorphonuclear Cells 20 0-25 % Prothrombin Time 11.7 9.3-11.8 sec Prothrombin Time INR 1.12 0.9-1.15 Activated Partial Thromboplast Time 30.1 24.5-34.5 SEC Carcinoembryonic Antigen 18.71 <=5.0 ng/mL Urine Color Yellow Yellow Urine Clarity Turbid H Clear Urine pH 6.0 5.0-9.0 Urine Specific [place] 1.035 1.001-1.035 Urine Protein 1+ H Negative Urine Ketones Negative Negative Urine Blood Negative Negative /uL Urine Nitrite Negative Negative Urine Bilirubin 1+ Negative Urine Urobilinogen 8 H Negative mg/dL Urine Leukocyte Esterase 2+ Negative /uL Urine RBC 9 0 - 3 /hpf Urine Microscopic WBC 45 H 0-3 /HPF Urine Squamous Epithelial Cells Few <5 /hpf Urine Bacteria None seen None Seen /hpf Urine Hyaline Casts Few 0 - 2 /lpf Urine Mucus Many None Seen Urine Glucose Normal Normal mg/dL Test 04/13/24 15:29 Range/Units White Blood Count 10.8 4.4-10.8 10^3/uL Red Blood Count 5.19 4.5-5.90 10^6/uL Hemoglobin 13.8 13.5-17.5 g/dL Hematocrit 41.0 41.0-53.0 % Mean Corpuscular Volume 79.0 L 80.0-100.0 fL Mean Corpuscular Hemoglobin 26.6 L 28.0-32.0 pg Mean Corpuscular Hemoglobin Concent 33.7 32.0-36.0 g/dL Red Cell Distribution Width 14.0 11.8-14.3 % Platelet Count 476 H 140-450 10^3/uL Mean Platelet Volume 8.5 6.9-10.8 fL Neutrophils (%) (Auto) 76.8 37.0-80.0 % Lymphocytes (%) (Auto) 12.1 10.0-50.0 % Monocytes (%) (Auto) 9.1 0.0-12.0 % Eosinophils (%) (Auto) 1.3 0.0-7.0 % Basophils (%) (Auto) 0.7 0.0-2.0 % Neutrophils # (Auto) 8.3 1.6-8.6 10 ^3/uL Lymphocytes # (Auto) 1.3 0.4-5.4 10 ^3/uL Monocytes # (Auto) 1.0 0-1.3 10 ^3/uL Eosinophils # (Auto) 0.1 0-0.8 10 ^3/uL Basophils # (Auto) 0.1 0-0.2 10 ^3/uL Nucleated Red Blood Cells 0.3 % Sodium Level 135 L 136-145 mmol/L Potassium Level 4.3 3.5-5.1 mmol/L Chloride Level 100 98-107 mmol/L Carbon Dioxide Level 26 20-31 mmol/L Anion Gap 9 5-15 Blood Urea Nitrogen 20 9-23 mg/dL Creatinine 1.24 0.700-1.30 mg/dL Glomerular Filtration Rate Calc 72 >90 mL/min BUN/Creatinine Ratio 16.1 10.0-20.0 Serum Glucose 103 74-106 mg/dL Lactic Acid Level 1.2 0.4-2.0 mmol/L Calcium Level 9.1 8.7-10.4 mg/dL Total Bilirubin 0.6 0.2-1.0 mg/dL Aspartate Amino Transferase (AST) 13 13-40 U/L Alanine Aminotransferase (ALT) 10 7-40 U/L Alkaline Phosphatase 76 46-116 U/L B-Type Natriuretic Peptide 13.48 0-100 pg/mL Total Protein 6.7 5.7-8.2 g/dL Albumin 3.9 3.2-4.8 g/dL Lipase 31 12-53 U/L Imaging: CT abdomen pelvis IMPRESSION: 1. Focal wall thickening in the sigmoid colon concerning for colonic malignancy. Adjacent stranding, superimposed infectious/inflammatory process is not entirely excluded. Prominent lymph nodes in the upper pelvis near the aortic bifurcation and along the left iliac chain concerning for metastatic disease. Likely malignant ascites. Mesenteric nodularity could represent metastatic disease. Evaluation of the solid organs is limited without intravenous contrast. Consider further evaluation with CT of the chest, abdomen and pelvis with contrast. Alternatively recommend PET-CT. GI evaluation with colonoscopy and biopsy is recommended. Diagnostic paracentesis may provide malignant diagnosis. Abdominal ultrasound FINDINGS /impression: Moderate to large volume ascites noted in all [address] chest abdomen and pelvis with contrast IMPRESSION: 1. Circumferential mass within the sigmoid colon concerning for primary malignancy, approximately 11 cm segment 2. Findings consistent with omental caking, metastasis. 3. Multiple enlarged iliac and inguinal lymph nodes favor metastatic disease. Assessment: GI bleed Diarrhea Ascites Abnormalities on imaging possible sigmoid colon malignancy Plan: Discussed with Dr. Alexander Stool studies recommended Continue antibiotic Clear liquid diet Possible sigmoidoscopy/colonoscopy to be planned for Friday We will monitor this patient Discussed plan with patient and RN Thank you for this consult Date of Service: Apr 14, 2024 Billing Provider: KATY CLEMENT Common Visit Codes: CONSULT ONLY Consultation Codes: [id number] CONSULT <60MIN KATY CLEMENT Apr 14, 2024 12:21
[2024-04-14 13:00] VITALS: BP 156/84; PULSE 81; RESP 18; TEMP 98.3; O2SAT 96
[2024-04-14 16:37] VITALS: BP 130/92; PULSE 89; RESP 18; TEMP 97.3; O2SAT 95
[2024-04-14 21:00] VITALS: BP 125/84; PULSE 97; RESP 18; TEMP 98; O2SAT 95
[2024-04-15] VITALS (8 sets, daily range): BP systolic 112–135; BP diastolic 74–91; PULSE 68–99; RESP 16–19; TEMP 97.6–99.1; O2SAT 95–98
[2024-04-15 04:34] LABS: Eosinophils # (auto) 0.3 10 ^3/uL (0-0.8); Lymphocytes # (auto) 1.1 10 ^3/uL (0.4-5.4); Neutrophils # (auto) 6.6 10 ^3/uL (1.6-8.6); White Blood Cell 9.1 10^3/uL (4.4-10.8)
[2024-04-15 04:37] LABS: Basophils # (auto) 0.1 10 ^3/uL (0-0.2); Basophils % (auto) 0.6 % (0.0-2.0); Eosinophils % (auto) 3.4 % (0.0-7.0); Hematocrit 41.4 % (41.0-53.0); Hemoglobin 13.8 g/dL (13.5-17.5); Mean Corpuscular Hemoglobin 26.8 pg (28.0-32.0); Mean Corpuscular Hgb Conc. 33.4 g/dL (32.0-36.0); Mean Corpuscular Volume 80.3 fL (80.0-100.0); Nucleated Red Blood Cells % 0.1 %; Platelet Count (auto) 470 10^3/uL (140-450); Red Blood Cells 5.15 10^6/uL (4.5-5.90); Red Cell Distribution Width 14.5 % (11.8-14.3)
[2024-04-15 04:52] LABS: Albumin 3.8 g/dL (3.2-4.8); Alkaline Phosphatase 66 U/L (46-116); Anion Gap 8 (5-15); BUN/Creatinine Ratio 17.5 (10.0-20.0); Bilirubin, Total 0.6 mg/dL (0.2-1.0); Blood Urea Nitrogen 20 mg/dL (9-23); Calcium 9.1 mg/dL (8.7-10.4); Carbon Dioxide 26 mmol/L (20-31); Chloride 99 mmol/L (98-107); Glucose 100 mg/dL (74-106); Potassium 3.8 mmol/L (3.5-5.1); Total Protein 6.6 g/dL (5.7-8.2)
[2024-04-15 04:57] LABS: Alanine Aminotransferase < 9 U/L (7-40); Aspartate Aminotransferase 12 U/L (13-40); Sodium 133 mmol/L (136-145)
--- NOTE | 2024-04-15 08:28 | DVHINCON2 ---
Date of service: Apr 15, [address] Deon Sher Reason for Consultation Suspicious metastatic colon cancer History of Present Illness 48 years old obese gentleman who does not have any previous medical history. Has been sick over the last 3-4 weeks with abdominal bloating discomfort diarrhea and bleeding per rectum couple of weeks back. He has been trying to watch his diet and may have lost some nonspecific amount of weight. CT of the chest abdomen pelvis with IV contrast showed circumferential mass within the sigmoid colon concerning for primary malignancy, approximately 11 cm segment Omental caking Multiple enlarged iliac and inguinal lymph nodes favoring metastatic disease chest was unremarkable 04/14/2024 the patient had paracentesis and drained out 5.6 L of clear and serous fluid. The patient is feeling better after the paracentesis and is able to breathe better. And the abdominal discomfort is better. His bowel movements are regular now no bleeding in the stools BUN 20 creatinine 1.14 calcium 9.1 CEA 18.71 total protein 6.6 albumin 3.8 White count 9.1 hemoglobin 13.8 platelets [id number] with a normal differential Stool guaiac is negative Ascitic fluid and the LDH protein and glucose is pending PT INR 1.12 and PTT 30.1 No family history of any malignancies Past Medical History No previous medical history Family History: Patient reports no known family medical history. Family History No family history of malignancies Social History Patient is has one son, no smoking or drinking Allergies: Coded Allergies: NO KNOWN ALLERGIES (Unverified , 04/13/24) Home Meds No Active Prescriptions or Reported Meds Current Medications Current Medications Medications (Trade) Dose Ordered Sig/Tamy Route PRN Reason Start Time Stop Time Status Last Admin Levofloxacin/ Dextrose 150 ml @ 100 mls/hr DAILY IV 04/14/24 10:00 04/13/24 21:47 DC Ceftriaxone Sodium 50 ml @ 100 mls/hr DAILY@09 IV 04/15/24 09:00 Vital Signs Vital Signs Date Time Temp Pulse Resp B/P (MAP) Pulse Ox O2 Delivery O2 Flow Rate FiO2 04/15/24 05:00 98.3 94 19 112/74 (87) 96 98.3 04/14/24 20:00 Room Air* 0 21 Physical Exam Moderately built and nourished, in no acute distress, alert and oriented. Overweight gentleman No jaundice Head and neck: Unremarkable for any masses or neck nodes. No conjunctival or mucosal hemorrhage Lungs: Clear Cardiovascular: S1-S2 heard well Abdomen: No organomegaly, tenderness .. Bowel sounds are present. Has ascites Extremities: Has 1+ leg swelling without any calf tenderness Skin: Unremarkable for petechia purpura ecchymosis Lymphadenopathy: None Neurological exam: No focal deficit Labs/Diagnostic Data Labs Test 04/15/24 03:59 04/14/24 15:09 04/14/24 09:00 04/14/24 07:58 Range/Units White Blood Count 9.1 4.4-10.8 10^3/uL Red Blood Count 5.15 4.5-5.90 10^6/uL Hemoglobin 13.8 13.5-17.5 g/dL Hematocrit 41.4 41.0-53.0 % Mean Corpuscular Volume 80.3 80.0-100.0 fL Mean Corpuscular Hemoglobin 26.8 L 28.0-32.0 pg Mean Corpuscular Hemoglobin Concent 33.4 32.0-36.0 g/dL Red Cell Distribution Width 14.5 H 11.8-14.3 % Platelet Count 470 H 140-450 10^3/uL Mean Platelet Volume 8.8 6.9-10.8 fL Neutrophils (%) (Auto) 73.0 37.0-80.0 % Lymphocytes (%) (Auto) 12.0 10.0-50.0 % Monocytes (%) (Auto) 11.0 0.0-12.0 % Eosinophils (%) (Auto) 3.4 0.0-7.0 % Basophils (%) (Auto) 0.6 0.0-2.0 % Neutrophils # (Auto) 6.6 1.6-8.6 10 ^3/uL Lymphocytes # (Auto) 1.1 0.4-5.4 10 ^3/uL Monocytes # (Auto) 1.0 0-1.3 10 ^3/uL Eosinophils # (Auto) 0.3 0-0.8 10 ^3/uL Basophils # (Auto) 0.1 0-0.2 10 ^3/uL Nucleated Red Blood Cells 0.1 % Sodium Level 133 L 136-145 mmol/L Potassium Level 3.8 3.5-5.1 mmol/L Chloride Level 99 98-107 mmol/L Carbon Dioxide Level 26 20-31 mmol/L Anion Gap 8 5-15 Blood Urea Nitrogen 20 9-23 mg/dL Creatinine 1.14 0.700-1.30 mg/dL Glomerular Filtration Rate Calc 79 >90 mL/min BUN/Creatinine Ratio 17.5 10.0-20.0 Serum Glucose 100 74-106 mg/dL Calcium Level 9.1 8.7-10.4 mg/dL Magnesium Level 2.4 1.6-2.6 mg/dL Total Bilirubin 0.6 0.2-1.0 mg/dL Aspartate Amino Transferase (AST) 12 L 13-40 U/L Alanine Aminotransferase (ALT) < 9 7-40 U/L Alkaline Phosphatase 66 46-116 U/L Total Protein 6.6 5.7-8.2 g/dL Albumin 3.8 3.2-4.8 g/dL Stool Occult Blood Negative Negative Stool Occult Blood Sample #3 Negative Stool for White Cells None seen Body Fluid Source Ascities fluid Body Fluid pH 9.0 Body Fluid WBC (Manual) 1217 H 0-200 CUMM Body Fluid RBC (Manual) 08824 H 0-2000 CUMM Body Fluid Mononuclear Cells 80 % Body Fluid Polymorphonuclear Cells 20 0-25 % Prothrombin Time 11.7 9.3-11.8 sec Prothrombin Time INR 1.12 0.9-1.15 Activated Partial Thromboplast Time 30.1 24.5-34.5 SEC Test 04/13/24 21:56 04/13/24 16:00 04/13/24 15:29 Range/Units Carcinoembryonic Antigen 18.71 <=5.0 ng/mL Urine Color Yellow Yellow Urine Clarity Turbid H Clear Urine pH 6.0 5.0-9.0 Urine Specific Estill 1.035 1.001-1.035 Urine Protein 1+ H Negative Urine Ketones Negative Negative Urine Blood Negative Negative /uL Urine Nitrite Negative Negative Urine Bilirubin 1+ Negative Urine Urobilinogen 8 H Negative mg/dL Urine Leukocyte Esterase 2+ Negative /uL Urine RBC 9 0 - 3 /hpf Urine Microscopic WBC 45 H 0-3 /HPF Urine Squamous Epithelial Cells Few <5 /hpf Urine Bacteria None seen None Seen /hpf Urine Hyaline Casts Few 0 - 2 /lpf Urine Mucus Many None Seen Urine Glucose Normal Normal mg/dL Lactic Acid Level 1.2 0.4-2.0 mmol/L B-Type Natriuretic Peptide 13.48 0-100 pg/mL Lipase 31 12-53 U/L Assessment 1.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
[2024-04-15] MEDS: cefTRIAXone 1GM/50ML D5W 50 ML IV SCH (09:57)
[2024-04-15] MEDS: IOHEXOL 350 MG/ML 100ML IJ ONE (09:57)
--- NOTE | 2024-04-15 11:20 | DVHPN2 ---
Progress Note Date Seen: Apr 15, 2024 Resident Creating Document: LEONEL EDGE RESIDENT Medical Necessity Reason Pt with a Central, PICC or Fol: No Subjective Review of Systems Patient was seen and examined on the bedside. He is alert oriented x3. Complaint of mild abdominal pain and few episodes of loose bowel movement. Scheduled for Colonoscopy with biopsy tomorrow for possible sigmoid colon malignancy with local metastasis. Objective vital signs Vital Sign Date Time Temp Pulse Resp B/P (MAP) Pulse Ox O2 Delivery O2 Flow Rate FiO2 04/15/24 09:00 97.6 95 16 113/74 (87) 96 97.6 04/15/24 08:00 Room Air* 0 21 Total Intake and Output 04/14/24 04/14/24 04/15/24 15:00 23:00 07:00 Intake Total 550 ml 900 ml Balance 550 ml 900 ml medications Current Medications Medications Dose Ordered Sig/Tamy Route Start Time Stop Time Status Last Admin Dose Admin Acetaminophen 325 mg Q6HP PO 04/14/24 00:00 04/14/24 05:24 325 MG Metronidazole 100 ml @ 100 mls/hr Q8HR IV 04/13/24 22:00 04/15/24 05:54 100 MLS/HR Ceftriaxone Sodium 50 ml @ 100 mls/hr DAILY@09 IV 04/15/24 09:00 04/15/24 09:57 100 MLS/HR Examination Physical examination: General Appearance: Alert, Oriented X3, Cooperative, No acute distress HEENT: Atraumatic, PERRLA, EOMI, Mucous membrane moist/pink Respiratory: Clear to auscultation, Normal air movement Cardiovascular: Regular rate, Normal S1, Normal S2, No murmurs, no chest wall tenderness Abdominal: Abdomen is distended and flanks are full, Normal bowel sounds, Soft, No tenderness, No hepatospenomegaly, No masses Extremities: No clubbing, No cyanosis, No edema, Normal pulses, No tenderness/swelling Skin: No rashes, No breakdown, No significant lesion Neuro: Normal gait, Normal speech, Strength at 5/5 X4 ext, Normal tone, Sensation intact, Cranial nerves 3-12 NL, Reflexes 2+ Psych/Mental Status: Mental status NL, Mood NL laboratory and microbiology Laboratory Tests 04/15/24 03:59 Test 04/15/24 03:59 Range/Units Serum Glucose 100 74-106 mg/dL Microbiology Date/Time Source Procedure Growth Status 04/14/24 15:09 Stool Stool Culture - Preliminary Resulted 04/14/24 15:09 Stool Shiga Toxin I & II Pending Resulted Labs and/or images reviewed: Labs reviewed by me, Image(s) reviewed by me Problem List/Assessment/Plan Problem List/Assessment/Plan Assessment: # Posssible malignancy of the sigmoid colon with metastasis # possible lower GI bleeding due to malignancy # Chronic diarrhea likely due to colitis # Ascites likely due to metastatic disease, S/p paracentesis Plan: - Clear liquid diet - Stool study is negative for WBC and blood - Elevated CEA and CA19-9 - Scheduled for colonoscopy with biopsy tomorrow on 04/16/24 - H&H is stable - Surgery and Oncology are in board. - Continue IV antibiotics and other management as per primary - We will follow the patient. Plan discussed with Dr. Alexander Plan discussed with: Patient, Other My Orders My Orders Orders - LEONEL EDGE Procedure Category Date Status Time Obtain Consent For: ORDERS 04/15/24 Transmitted 10:58 Clear Liq Diet DIET 04/15/24 Transmitted Lunch Npo (Nothing By DIET 04/15/24 Transmitted Mouth) Diet Dinner Peg 1693-Czn-Pzn PHA 04/15/24 Logged Bicarb-Sod Ch 11:00 Peg 7627-[id number] PHA 04/16/24 Logged Bicarb-Sod Ch 06:00 Magnesium Citrate PHA 04/16/24 Logged Solution (Citrate Of M 06:00 Obtain Consent For BROOKE 04/15/24 In Process Anesthesia 10:58 LEONEL EDGE RESIDENT Apr 15, 2024 11:20
[2024-04-15] MEDS: GOLYTELY 4L KIT PO ONE (12:40)
[2024-04-15 13:07] LABS: Protein, Body Fluid 5.5 g/dL (.)
[2024-04-15] MEDS ORDERED: ACETAMINOPHEN 325 MG TAB PO PRN (15:15)
--- NOTE | 2024-04-15 17:35 | DVHPNRES ---
Progress Note Date Seen: Apr 15, 2024 Resident Creating Document: MELIZA SWEENEY RESIDENT Medical Necessity Reason Pt with a Central, PICC or Fol: No Subjective Review of Systems HPI-patient is 48 years old male with no significant past medical history came with a complaint of worsening abdominal pain for last 2 weeks. As per patient he has been having intermittent abdominal pain crampy in nature for last 1 month which has got worse for last 2 weeks. Patient was associated with diarrhea with the occasional blood. Patient also reported nausea but no vomiting. Patient also reported his abdomen was getting distended lately. Patient denied smoking cigarettes or any family history. Patient denied any chest pain, shortness of breath, fever. Initial lab workup revealed reactive leukocytosis with platelet 476, CEA 18.7. CT pelvis revealed-Focal wall thickening in the sigmoid colon concerning for colonic malignancy. Adjacent stranding, superimposed infectious/inflammatory process is not entirely excluded. Prominent lymph nodes in the upper pelvis near the aortic bifurcation and along the left iliac chain concerning for metastatic disease. Likely malignant ascites. Mesenteric nodularity could represent metastatic disease. Evaluation of the solid organs is limited without intravenous contrast. Abdominal ultrasound revealed-Moderate to large volume ascites noted in all [address] chest revealed - Circumferential mass within the sigmoid colon concerning for primary malignancy, approximately 11 cm segment. Findings consistent with omental caking, metastasis. Multiple enlarged iliac and inguinal lymph nodes favor metastatic disease. PMH-none PSH- none Allergy- NKDA Personal History/ Social History- smokes marijuana Patient was seen today at the bedside. Cardiovascular- deny acute chest pain or shortness of breath or cough or palpitation Respiratory denies cough or short of breath or wheezing Musculoskeletal-denies acute joint swelling or tenderness or redness Neurological- denies acute dysarthria, dysphagia, change in vision Psychiatry- denies depression or SI or HI Skin- denies acute rash or purpura Patient is seen today for clinical evaluation. Labs and chart reviewed. P atient was seen by hemato oncologist. Recommendation reviewed and appreciated. Patient is due for possible colonoscopy tomorrow as per GI consult. Objective vital signs Vital Sign Date Time Temp Pulse Resp B/P (MAP) Pulse Ox O2 Delivery O2 Flow Rate FiO2 04/15/24 13:00 98.3 91 16 130/91 (104) 95 98.3 04/15/24 08:00 Room Air* 0 21 Total Intake and Output 04/14/24 04/14/24 04/15/24 15:00 23:00 07:00 Intake Total 550 ml 900 ml Balance 550 ml 900 ml medications Current Medications Medications Dose Ordered Sig/Tamy Route Start Time Stop Time Status Last Admin Dose Admin Metronidazole 100 ml @ 100 mls/hr Q8HR IV 04/13/24 22:00 04/15/24 13:54 100 MLS/HR Ceftriaxone Sodium 50 ml @ 100 mls/hr DAILY@09 IV 04/15/24 09:00 04/15/24 09:57 100 MLS/HR Acetaminophen 650 mg Q6HP PRN PO 04/15/24 15:15 Examination General examination- awake, alert, oriented HEENT- PEERLA, no acute nasal discharge Cardiovascular- S1-S2 audible, rate and rhythm regular, no murmur Respiratory- CTAB, no wheeze or rhonchi Gastrointestinal-abdomen distended+, nontender, bowel sound+. Musculoskeletal-no acute joint swelling or tenderness or redness# Lower extremity- no leg edema Neurological- cranial nerves intact, no acute dysarthria or dysphagia Psychiatry- denies depression or SI or HI Skin- no acute rash or purpura laboratory and microbiology Laboratory Tests 04/15/24 03:59 Test 04/15/24 03:59 Range/Units Serum Glucose 100 74-106 mg/dL Microbiology Date/Time Source Procedure Growth Status 04/14/24 15:09 Stool Stool Culture - Preliminary Resulted 04/14/24 15:09 Stool Shiga Toxin I & II Pending Resulted 04/14/24 09:00 Ascities Fluid Gram Stain - Final Resulted 04/14/24 09:00 Ascities Fluid Body Fluid Culture - Preliminary Resulted Problem List/Assessment/Plan Problem List/Assessment/Plan Assessment Intractable Abdominal pain and bloody diarrhea likely due to sigmoid colon carcinoma with metastasis Rule out colitis Suspected sigmoid colon Carcinoma with metastasis to the lymph node and mesentery Moderate to severe ascites Reactive thrombocytosis Hematochezia likely due to sigmoid carcinoma, rule out colitis CT abdomen and pelvis-suspected sigmoid colon malignancy with ascites with metastasis with lymphadenopathy Ultrasound-moderate to severe ascites CT chest-Circumferential mass within the sigmoid colon concerning for primary malignancy, approximately 11 cm segment. Findings consistent with omental caking, metastasis. Multiple enlarged iliac and inguinal lymph nodes favor metastatic disease. Plan -continue ceftriaxone 1 g IV daily Continue metronidazole 500 mg t.i.d. Status post paracentesis, 5.6 L of serous fluid was aspirated Continue other pain management Ordered hemato oncology consult Patient was seen by family protection specialist Patient was seen by surgeon Status post gastroenterology consult, recommendation reviewed and appreciated- possible colonoscopy on Friday as per GI recommendation Status post hemato oncology consult. Due for colonoscopy tomorrow as per GI consult Goals of care/advance care planning; FULL CODE; discussed with the patient >15 minutes PUD prophylaxis: Famotidine DVT prophylaxis: Patient ambulating Plan discussed with Dr. Estes , nursing staff, patient Total time spent on patient evaluation, chart review, assessment and plan, discussion discussion >31 minutes Plan discussed with: Patient Plan discussed with: Patient, Spouse (RN), Other Date of Service: Apr 15, 2024 Billing Provider: CLAUDE MOREIRA MD Common Visit Codes: [id number] INP/OBS CARE(HIGH) MELIZA SWEENEY Apr 15, 2024 17:35 CLAUDE MOREIRA MD Apr 20, 2024 23:25
[2024-04-16] VITALS (8 sets, daily range): BP systolic 119–141; BP diastolic 79–88; PULSE 89–96; RESP 18–20; TEMP 97.8–98.3; O2SAT 94–97
[2024-04-16] MEDS: GOLYTELY 4L KIT PO ONE (05:25)
[2024-04-16] MEDS: MAGNESIUM CITRATE SOLUTION 300 ML BTL PO ONE (05:25)
[2024-04-16 10:47] LABS: Basophils # (auto) 0 10 ^3/uL (0-0.2); Hemoglobin 15.1 g/dL (13.5-17.5); Neutrophils % (auto) 79.2 % (37.0-80.0); White Blood Cell 9.4 10^3/uL (4.4-10.8)
[2024-04-16 10:49] LABS: Basophils % (auto) 0.5 % (0.0-2.0); Eosinophils # (auto) 0.1 10 ^3/uL (0-0.8); Eosinophils % (auto) 1.5 % (0.0-7.0); Hematocrit 45.7 % (41.0-53.0); Lymphocytes % (auto) 10.5 % (10.0-50.0); Mean Corpuscular Hemoglobin 26.7 pg (28.0-32.0); Mean Corpuscular Hgb Conc. 33.1 g/dL (32.0-36.0); Mean Corpuscular Volume 80.5 fL (80.0-100.0); Monocytes # (auto) 0.8 10 ^3/uL (0-1.3); Monocytes % (auto) 8.3 % (0.0-12.0); Neutrophils # (auto) 7.5 10 ^3/uL (1.6-8.6); Nucleated Red Blood Cells % 0.4 %; Platelet Count (auto) 531 10^3/uL (140-450); Red Blood Cells 5.68 10^6/uL (4.5-5.90); Red Cell Distribution Width 14.3 % (11.8-14.3)
[2024-04-16 10:50] LABS: Chloride 99 mmol/L (98-107)
[2024-04-16 10:51] LABS: Calcium 9.1 mg/dL (8.7-10.4); Carbon Dioxide 26 mmol/L (20-31); Potassium 3.3 mmol/L (3.5-5.1)
[2024-04-16 10:56] LABS: BUN/Creatinine Ratio 13.4 (10.0-20.0); Blood Urea Nitrogen 16 mg/dL (9-23)
[2024-04-16 11:01] LABS: Glucose 107 mg/dL (74-106)
[2024-04-16 11:35] LABS: Anion Gap 10 (5-15); Sodium 135 mmol/L (136-145)
[2024-04-16] MEDS ORDERED: fentaNYL CITRATE 100 MCG/2 ML VL ONE (13:59)
[2024-04-16] MEDS ORDERED: PROPOFOL 10 MG/ML 20 ML IV ONE (13:59)
--- NOTE | 2024-04-16 14:47 | DVHOP2 ---
Operative Report DATE OF OPERATION: 04/16/24 PROCEDURE: Colonoscopy with biopsy and Cinthia ink injection tattoo. PREOPERATIVE INDICATION: The patient is a 48 -year-old male undergoing colonoscopy for abnormal finding GI tract imaging rule out sigmoid mass POSTOPERATIVE DIAGNOSES: 1. Patient had a friable circumferential ulcerated inflamed sigmoid mass with distal raised edges from which multiple biopsies were obtained This extended from about 18 cm to 35 cm from the anal verge. The distal and proximal edges were marked with Cinthia ink 2. Trace to 1+ internal hemorrhoids otherwise normal examination up to the cecum PROCEDURE PERFORMED BY: Marisela Alexander M.D. SCOPE: Olympus videocolonoscope. ASA CLASS: 3. PREOPERATIVE MEDICATIONS: Mac Dr. Aj guan PROCEDURE IN DETAIL: After obtaining an informed consent, the patient was placed on left lateral decubitus position. He was then sedated with the above medications. A rectal examination was performed that was normal. The colonoscope was then passed through the anus into the rectosigmoid and through the descending, transverse, and ascending colon up to the cecum with visualization of the appendiceal orifice, base of the cecum and the ileocecal valve. The colonoscope was then withdrawn. No polyps or diverticular openings were seen. Patient had no clear-cut colitis. However the patient did have an abnormal area in the sigmoid colon This extended from about 18-35 cm above the anal verge. It was a circumferential friable ulcerated mass with raised distal edges and a shelf sign. The proximal and distal margins of this abnormal area were injected with Cinthia ink for tattoo On retroflexion the patient had trace to 1+ internal hemorrhoids The patient tolerated the procedure well without difficulty. WITHDRAWAL TIME: 12 minutes QUALITY OF THE PREP: [place] Bowel Prep score: 9. COMPLICATIONS : None SPECIMENS: Sigmoid mass biopsies DISPOSITION: Transfer back to the floor Stable PLAN: 1. Repeat colonoscopy in 1-2 years after completion of chemotherapy and surgery 2. Resume full liquid diet advance as tolerated 3. Oncology follow up as this patient will likely need preop chemo and radiation therapy as the tumor is not obstructing at this time 4. Pain control, monitor labs and I will follow up patient with MARISELA oSlitario MD Apr 16, 2024 14:47
--- NOTE | 2024-04-16 17:41 | DVHDSRES ---
Discharge Summary Date of Admission Resident Creating Document: MELIZA SWEENEY Apr 13, 2024 at 21:03 Date of Discharge: Apr 16, 2024 Admitting Diagnosis Abdominal pain likely due to Ca colon/rule out colitis Labs/Diagnostic Data: Laboratory Results Test 04/16/24 10:10 04/15/24 03:59 04/14/24 15:09 04/14/24 09:00 White Blood Count 9.4 10^3/uL (4.4-10.8) Red Blood Count 5.68 10^6/uL (4.5-5.90) Hemoglobin 15.1 g/dL (13.5-17.5) Hematocrit 45.7 % (41.0-53.0) Mean Corpuscular Volume 80.5 fL (80.0-100.0) Mean Corpuscular Hemoglobin 26.7 pg (28.0-32.0) Mean Corpuscular Hemoglobin Concent 33.1 g/dL (32.0-36.0) Red Cell Distribution Width 14.3 % (11.8-14.3) Platelet Count 531 10^3/uL (140-450) Mean Platelet Volume 8.8 fL (6.9-10.8) Neutrophils (%) (Auto) 79.2 % (37.0-80.0) Lymphocytes (%) (Auto) 10.5 % (10.0-50.0) Monocytes (%) (Auto) 8.3 % (0.0-12.0) Eosinophils (%) (Auto) 1.5 % (0.0-7.0) Basophils (%) (Auto) 0.5 % (0.0-2.0) Neutrophils # (Auto) 7.5 10 ^3/uL (1.6-8.6) Lymphocytes # (Auto) 1.0 10 ^3/uL (0.4-5.4) Monocytes # (Auto) 0.8 10 ^3/uL (0-1.3) Eosinophils # (Auto) 0.1 10 ^3/uL (0-0.8) Basophils # (Auto) 0 10 ^3/uL (0-0.2) Nucleated Red Blood Cells 0.4 % Sodium Level 135 mmol/L (136-145) Potassium Level 3.3 mmol/L (3.5-5.1) Chloride Level 99 mmol/L (98-107) Carbon Dioxide Level 26 mmol/L (20-31) Anion Gap 10 (5-15) Blood Urea Nitrogen 16 mg/dL (9-23) Creatinine 1.19 mg/dL (0.700-1.30) Glomerular Filtration Rate Calc 75 mL/min (>90) BUN/Creatinine Ratio 13.4 (10.0-20.0) Serum Glucose 107 mg/dL (74-106) Calcium Level 9.1 mg/dL (8.7-10.4) Magnesium Level 2.4 mg/dL (1.6-2.6) Total Bilirubin 0.6 mg/dL (0.2-1.0) Aspartate Amino Transferase (AST) 12 U/L (13-40) Alanine Aminotransferase (ALT) < 9 U/L (7-40) Alkaline Phosphatase 66 U/L (46-116) Total Protein 6.6 g/dL (5.7-8.2) Albumin 3.8 g/dL (3.2-4.8) Stool Occult Blood Negative (Negative) Stool Occult Blood Sample #3 (Negative) Stool for White Cells None seen Body Fluid Source Ascities fluid Body Fluid pH 9.0 Body Fluid WBC (Manual) 1217 CUMM (0-200) Body Fluid RBC (Manual) 58986 CUMM (0-2000) Body Fluid Mononuclear Cells 80 % Body Fluid Polymorphonuclear Cells 20 % (0-25) Body Fluid Glucose 74 mg/dL (.) Body Fluid Total Protein 5.5 g/dL (.) Body Fluid Lactate Dehydrogenase 431 IU/L (.) Test 04/14/24 07:58 04/13/24 21:56 04/13/24 16:00 04/13/24 15:29 Prothrombin Time 11.7 sec (9.3-11.8) Prothrombin Time INR 1.12 (0.9-1.15) Activated Partial Thromboplast Time 30.1 SEC (24.5-34.5) Tumor Marker Alpha Fetoprotein 2.7 ng/mL (0.0-6.9) Carcinoembryonic Antigen 18.71 ng/mL (<=5.0) CA 19-9 Antigen 829 U/mL (0-35) Urine Color Yellow (Yellow) Urine Clarity Turbid (Clear) Urine pH 6.0 (5.0-9.0) Urine Specific [place] 1.035 (1.001-1.035) Urine Protein 1+ (Negative) Urine Ketones Negative (Negative) Urine Blood Negative /uL (Negative) Urine Nitrite Negative (Negative) Urine Bilirubin 1+ (Negative) Urine Urobilinogen 8 mg/dL (Negative) Urine Leukocyte Esterase 2+ /uL (Negative) Urine RBC 9 /hpf (0 - 3) Urine Microscopic WBC 45 /HPF (0-3) Urine Squamous Epithelial Cells Few /hpf (<5) Urine Bacteria None seen /hpf (None Seen) Urine Hyaline Casts Few /lpf (0 - 2) Urine Mucus Many (None Seen) Urine Glucose Normal mg/dL (Normal) Lactic Acid Level 1.2 mmol/L (0.4-2.0) B-Type Natriuretic Peptide 13.48 pg/mL (0-100) Lipase 31 U/L (12-53) Other Laboratory Tests 04/16/24 10:10 Brief Hx & Hospital Course: HPI-patient is 48 years old male with no significant past medical history came with a complaint of worsening abdominal pain for last 2 weeks. As per patient he has been having intermittent abdominal pain crampy in nature for last 1 month which has got worse for last 2 weeks. Patient was associated with diarrhea with the occasional blood. Patient also reported nausea but no vomiting. Patient also reported his abdomen was getting distended lately. Patient denied smoking cigarettes or any family history. Patient denied any chest pain, shortness of breath, fever. Initial lab workup revealed reactive leukocytosis with platelet 476, CEA 18.7. CT pelvis revealed-Focal wall thickening in the sigmoid colon concerning for colonic malignancy. Adjacent stranding, superimposed infectious/inflammatory process is not entirely excluded. Prominent lymph nodes in the upper pelvis near the aortic bifurcation and along the left iliac chain concerning for metastatic disease. Likely malignant ascites. Mesenteric nodularity could represent metastatic disease. Evaluation of the solid organs is limited without intravenous contrast. Abdominal ultrasound revealed-Moderate to large volume ascites noted in all [address] chest revealed - Circumferential mass within the sigmoid colon concerning for primary malignancy, approximately 11 cm segment. Findings consistent with omental caking, metastasis. Multiple enlarged iliac and inguinal lymph nodes favor metastatic disease. Colonoscopy on 04/16/2024 revealed- Patient had a friable circumferential ulcerated inflamed sigmoid mass with distal raised edges from which multiple biopsies were obtained. This extended from about 18 cm to 35 cm from the anal verge. The distal and proximal edges were marked with Cinthia ink 2. Trace to 1+ internal hemorrhoids otherwise normal examination up to the cecum. Ascitic fluid analysis was positive for malignant cell. Hospital course-patient came to the hospital with the complaint of abdominal pain and diarrhea. Patient was admitted to the hospital due to intractable abdominal pain and diarrhea likely due to carcinoma of the colon, rule out colitis. Initial lab workup revealed reactive leukocytosis with platelet 476, CEA 18.7. CT pelvis revealed-Focal wall thickening in the sigmoid colon concerning for colonic malignancy. Adjacent stranding, superimposed infectious/inflammatory process is not entirely excluded. Prominent lymph nodes in the upper pelvis near the aortic bifurcation and along the left iliac chain concerning for metastatic disease. Likely malignant ascites. Mesenteric nodularity could represent metastatic disease. Evaluation of the solid organs is limited without intravenous contrast. Abdominal ultrasound revealed-Moderate to large volume ascites noted in all [address] chest revealed - Circumferential mass within the sigmoid colon concerning for primary malignancy, approximately 11 cm segment. Findings consistent with omental caking, metastasis. Multiple enlarged iliac and inguinal lymph nodes favor metastatic disease. Ascitic fluid analysis was positive for malignant cell.. Colonoscopy on 04/16/2024 revealed- Patient had a friable circumferential ulcerated inflamed sigmoid mass with distal raised edges from which multiple biopsies were obtained. This extended from about 18 cm to 35 cm from the anal verge. The distal and proximal edges were marked with Cinthia ink 2. Trace to 1+ internal hemorrhoids otherwise normal examination up to the cecum. Patient was advised to follow up with oncologist for postop chemotherapy and to follow up with the Gastroenterology with the report of the biopsy. Postprocedure patient tolerated diet well, no nausea or vomiting noted. Patient was also advised to follow up with the primary care physician in 1 week for further evaluation and care. Patient verbalized understanding. Patient was hemodynamically stable on discharge. 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 Moderate to severe ascites, status post paracentesis Reactive thrombocytosis Chronic diarrhea likely due to Ca colon Hematochezia likely due to sigmoid carcinoma, rule out colitis Discharge plan- Tylenol 650 mg q.6h as needed Please follow up with the primary care physician in 1 week Please follow up with the electric lineman with the biopsy report Please follow up with the oncologist with the biopsy report for further evaluation and care Repeat colonoscopy in 1-2 years after completion of came on 7 surgery as per GI recommendation Follow up with the primary care physician in 1 week Please avoid dehydration and constipation Operations or Procedures [address] [address] Ph: [phone] DIAGNOSTIC IMAGING Diagnostic Imaging Report : [id number] Signed PATIENT: MARGE MORELOS ACCT: [id number] UNIT: [id number] : 1975 LOC: ER ROOM / BED: / AGE / SEX: 48 / M ADM STATUS: REG ER SERVICE 1508 ORDERING PHYSICIAN: JOE CONTRERAS DO PROCEDURE(s): ABPL - CT AB PEL WO CON-NO ORAL OR IV REASON: abd pain ORDER NUMBER(s): [id number], ACCESSION NUMBER(s): [id number] Exam: CT CT AB PEL WO CON-NO ORAL OR IV History: abd pain Comparison Study: None Technique: Multidetector spiral CT of the abdomen and pelvis was performed from lung bases to pubic symphysis. Imaging was performed without IV contrast. Axial, coronal and sagittal multiplanar reformats were obtained from the axial data set by the technologist. Radiation dose : Abdomen/Pelvis: CTDIvol 25.78 mGy, DLP 1624.26 mGy*cm. Findings: Evaluation of solid organs is limited due to lack of intravenous contrast use. Lung Bases: No acute or significant lung base finding. Normal heart size. No pleural or pericardial effusion. Liver: The liver is normal in size. No focal lesions. Gallbladder and biliary Tree: Unremarkable Spleen: Unremarkable Pancreas: The pancreas is grossly normal in appearance. Adrenal Glands: Unremarkable Kidneys: Kidneys are grossly normal without calculi or hydronephrosis. Bladder: Grossly unremarkable for degree of distention. Bowel: The stomach is grossly normal in appearance. There is wall thickening in the sigmoid colon 74 mm segment. The appendix is not visualized; however, no secondary findings of acute appendicitis identified. Ascites: Large amount of abdominal and pelvic ascites. Lymphadenopathy: Prominent lymph nodes at the aortic bifurcation and along the left iliac chain measuring up to 16 mm in short axis. Abdominal wall and Mesentery: Extensive mesenteric stranding and nodularity. Vasculature: The visualized abdominal aorta is normal in size and caliber. Evaluation of abdominal and pelvic vessels is limited due to lack of intravenous contrast. Pelvic Organs: Unremarkable Musculoskeletal: No aggressive focal bony lesions, acute fractures or dislocation. IMPRESSION: 1. Focal wall thickening in the sigmoid colon concerning for colonic malignancy. Adjacent stranding, superimposed infectious/inflammatory process is not entirely excluded. Prominent lymph nodes in the upper pelvis near the aortic bifurcation and along the left iliac chain concerning for metastatic disease. Likely malignant ascites. Mesenteric nodularity could represent metastatic disease. Evaluation of the solid organs is limited without intravenous contrast. Consider further evaluation with CT of the chest, abdomen and pelvis with contrast. Alternatively recommend PET-CT. GI evaluation with colonoscopy and biopsy is recommended. Diagnostic paracentesis may provide malignant diagnosis. Radiation optimization: All CT scans at this facility use at least one of these dose optimization techniques: Automated exposure control mA and/or kV adjustment per patient size (includes targeted exams where dose is matched to clinical indication) or iterative reconstruction. HS:Y ATED BY: NETO WANG MD DICTATED DATE/TIME: 04/13/24 1547 SIGNED BY: NETO WANG MD SIGNED DATE/TIME: 04/13/24 154 CC: [place] [id number] Ph: [phone] DIAGNOSTIC IMAGING Diagnostic Imaging Report : [id number] Signed PATIENT: MARGE MORELOS ACCT: [id number] UNIT: [id number] : 1975 LOC: OVERFLOW ROOM / BED: [address] [place] [address] / A AGE / SEX: 48 / M ADM STATUS: ADM IN SERVICE 17 ORDERING PHYSICIAN: JOE CONTRERAS DO PROCEDURE(s): ABDC - ABDOMEN COMPLETE SONOGRAM REASON: ASCITES ORDER NUMBER(s): [id number], ACCESSION NUMBER(s): [id number] INDICATION: ASCITES TECHNIQUE: Multiple grayscale sonographic images obtained for evaluation of ascites. COMPARISON: CT abdomen and pelvis 04/13/2023 FINDINGS /impression: Moderate to large volume ascites noted in all 4 abdominal quadrants. ATED BY: SARAH ASENCIO DO DICTATED DATE/TIME: 04/13/242140 SIGNED BY: SARAH ASENCIO DO SIGNED DATE/TIME: 04/13/242140 CC: [place] [id number] Ph: [phone] DIAGNOSTIC IMAGING Diagnostic Imaging Report : [id number] Signed PATIENT: MARGE MORELOS ACCT: [id number] UNIT: [id number] : 1975 LOC: OVERFLOW ROOM / BED: 1022-ER / A AGE / SEX: 48 / M ADM STATUS: ADM IN SERVICE 41 ORDERING PHYSICIAN: GREGORIO ROWLEY RESIDENT PROCEDURE(s): CAPIV - CT CHEST/AB/PL W CON- IV ONLY REASON: RULE OUT MET ORDER NUMBER(s): [id number], ACCESSION NUMBER(s): [id number] Exam: CT CT CHEST/AB/PL W CON- IV ONLY History: RULE OUT MET Comparison Study: 04/13/2024 TECHNIQUE: Multidetector CT of the abdomen was performed from lung bases to pubic symphysis. Imaging was performed following administration of 100 cc of intravenous contrast. Axial, coronal and sagittal multiplanar reformats were obtained from the axial data set by the technologist. Radiation optimization: All CT scans at this facility use at least one of these dose optimization techniques: automated exposure control mA and/or kV adjustment per patient size (includes targeted exams where dose is matched to clinical indication) or iterative reconstruction. Radiation Dose Information: CT Dose: CTDI volume is 26.93 mGy. Dose-length product is 2081.04 mGy*cm FINDINGS: Imaged portions of the lung bases demonstrate subsegmental atelectasis in the right lung base. There are a few notable cardiophrenic lymph nodes measuring up to 0.6 cm in short axis. The liver, spleen, pancreas and adrenal glands appear unremarkable. Kidneys appear symmetric without hydronephrosis. There is redemonstration of a segment of sigmoid colonic wall circumferential wall thickening measuring approximately 11 cm in length. No evidence obstruction or perforation. There is moderate to large volume ascites with innumerable omental nodules. Prominent bilateral inguinal lymph nodes measure up to 1.6 cm in short axis on the right. There is an external iliac lymph node measuring 1.2 cm on the right left internal iliac lymph node measures 1.6 cm on the left. 1.8 cm lymph node at the iliac bifurcation. No suspicious osseous lesion. IMPRESSION: 1. Circumferential mass within the sigmoid colon concerning for primary malignancy, approximately 11 cm segment 2. Findings consistent with omental caking, metastasis. 3. Multiple enlarged iliac and inguinal lymph nodes favor metastatic disease. HS:Y ATED BY: AMBROSE SANCHEZ MD DICTATED DATE/TIME: 04/14/24310 SIGNED BY: AMBROSE SANCHEZ MD SIGNED DATE/TIME: 04/14/24310 CC: [place] [id number] Ph: [phone] DIAGNOSTIC IMAGING Diagnostic Imaging Report : [id number] Signed PATIENT: MARGE MORELOS ACCT: [id number] UNIT: [id number] : 1975 LOC: OVERFLOW ROOM / BED: [address] [place] [address] AGE / SEX: 48 / M ADM STATUS: ADM IN SERVICE 0700 ORDERING PHYSICIAN: GREGORIO ROWLEY RESIDENT PROCEDURE(s): PARAC - PARACENTESIS REASON: ASCITES r/o malignancy ORDER NUMBER(s): [id number], ACCESSION NUMBER(s): [id number] US PARACENTESIS, HISTORY: ASCITES r/o malignancy PROCEDURE: Informed consent was obtained. The patient was placed in supine position. A limited localization ultrasound of the abdomen was obtained, and the skin site over the largest pocket of fluid was marked and entry site was prepped with chlorhexidine which was allowed to dry and draped in the usual sterile fashion. Time out was performed. Following administration of 1% lidocaine local anesthetic, a 5 Korean centesis needle catheter was percutaneously inserted into the peritoneal collection until fluid was aspirated. The catheter was advanced into the fluid collection and the needle removed. About 5550 cc of fluid was aspirated and specimen sent for appropriate cultures/cytology/cultures and cytology. The catheter was then removed and a sterile dressing applied. No immediate complication was identified. FINDINGS: Limited ultrasound imaging demonstrates moderate ascites. Aspirated fluid was clear and serous. IMPRESSION: US-guided paracentesis with 5.6L removed. 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 Repeat colonoscopy in 1-2 years after completion of came on 7 surgery as per GI recommendation Follow up with the primary care physician in 1 week Please avoid dehydration and constipation Medications: Tylenol 650 mg q.6h as needed Please follow up with the electric lineman with the biopsy report Please follow up with the oncologist Dr. Saldaña with the biopsy report. Repeat colonoscopy in 1-2 years after completion of came on 7 surgery as per GI recommendation Avoid constipation or dehydration Follow up with the primary care physician in 1 week Please avoid dehydration and constipation Discharge Statement: "Patient was advised to return to the ER or call 911 if any headaches, dizziness, shortness of breath, chest pain, abdominal pain, bleeding, fevers, or worsening of medical condition. Patient was counseled about treatment plan, medications, possible side effects, patientverbalized understanding. All questions were answered to the best of my ability. This discharge took greater then 30 minutes in planning, reviewing documentation, counseling the patient, and discussing with other team members." ASSESSMENT ASSESSMENT Assessment Date of Service: Apr 16, 2024 Billing Provider: CLAUDE MOREIRA MD Common Visit Codes: 63193-OZQ/OBS DISCH DAY >30min MELIZA SWEENEY Apr 16, 2024 17:41 CLAUDE MOREIRA MD Apr 20, 2024 23:57
== END 2024-04-16 20:15 | disposition home or self-care (01) | DRG 375 ==
LOC: ER 14:04 → OVERFLOW 21:03 → WEST WING 04-14 11:44
PROVIDERS: ADMIT Student in an Organized Health Care Education/Training Program; ATTEND Emergency Medicine
PROC: 0W9G3ZZ Drainage of Peritoneal Cavity, Percutaneous Approach (ICD-10-PCS; principal; 2024-04-14)
PROC: 0DBN8ZX Excision of Sigmoid Colon, Via Natural or Artificial Opening Endoscopic, Diagnostic (ICD-10-PCS; 2024-04-16)
DX: C18.7 Malignant neoplasm of sigmoid colon (principal); C77.9 Secondary and unspecified malignant neoplasm of lymph node, unspecified; Z68.41 Body mass index [BMI] 40.0-44.9, adult; K63.3 Ulcer of intestine; R18.0 Malignant ascites; D75.839 Thrombocytosis, unspecified; K64.8 Other hemorrhoids; D75.838 Other thrombocytosis; E66.9 Obesity, unspecified
CPT/HCPCS: 36415; 49083; 71260; 74176; 74177; 76700; 76942; 80048; 80053; 81001; 82105; 82270; 82378; 83605; 83690; 83735; 83880; 83986; 85025; 85048; 85610; 85730; 86301; 86850; 86900; 86901; 87045; 87205; 87427; 89051; 96365; G0378; J2543; J2704; J3490

== ENCOUNTER 2024-04-19 13:56 | Inpatient (IN) | payer BC ==
[~2024-04-19] VITALS: Ht 180.3 cm; Wt 145.6 kg
--- NOTE | 2024-04-19 14:34 | ECG ---
[facility] Test Date: 2024-04-19 Test Time: 14:21:01 Pat Name: MARGE MORELOS Department: ER Room: Gender: M Developer Architect: SARY : 1975 Requested By: CHIDI COKER Order Number: [id number] Reading MD: Measurements Intervals [place] Rate: 108 P: 47 MD: 153 QRS: 182 QRSD: 99 T: 7 QT: 347 QTc: 465 Interpretive Statements Sinus tachycardia Right axis deviation Low voltage, precordial leads Please click the below link to view image of tracing.
--- NOTE | 2024-04-19 15:10 | DVH ---
CT ABDOMEN AND PELVIS WITHOUT CONTRAST CLINICAL HISTORY: abd distention, sob TECHNIQUE: Multiple contiguous axial images of the abdomen and pelvis without intravenous contrast. The images were reformatted degenerate coronal and sagittal reconstructions. All CT scans at this medical facility are performed using dose modulation techniques as appropriate t o a performed exam including the following:Automated exposure control was utilized; adjustment of the MA and/or KV according to patient size; and use of iterative reconstruction technique. Radiation Dose Information: CT Dose: CTDI volume is 25 mGy. Dose-length product is 1686 mGy*cm Comparison: CT CT AB PEL WO CON-NO ORAL OR IV on DOS: 04/13/24 FINDINGS: Evaluation of the abdomen and pelvis is limited without intravenous contrast. There is redemonstration of irregular circumferential wall thickening in the sigmoid colon suspicious for primary malignancy. The small and large bowel loops demonstrate normal caliber without evidence of bowel obstruction. The stomach appears within normal limits. The liver, gallbladder, pancreas, kidneys, adrenal glands, and spleen appear within normal limits. There is large amount of ascites. There is no free intraperitoneal air. There is stable appearance of the mesentery with fat stranding and soft tissue nodularities along the anterior mesentery. Again se en are prominent lymph nodes along the left common iliac chain. There are also mildly prominent bilat eral inguinal lymph nodes. The abdominal aorta and IVC appear within normal limits. The bladder appears unremarkable for the degree of distention. Pelvic organ appears within normal delvalle its. There is no gross evidence of a pelvic mass. There is free fluid in the pelvis. There is atelectasis in the right lung base. The left lung base is clear. There is no acute osseous abnormality. IMPRESSION: 1. Redemonstration of irregular circumferential wall thickening in the sigmoid colon suspicious for p rimary colon malignancy. 2. Redemonstrated are prominent lymph nodes along the left common iliac chain. Metastatic lymphadeno monica is not excluded. 3. Stable appearance of the mesentery with fat stranding and soft tissue nodularities. Omental cakin g /metastasis not excluded. 4. Large amount of ascites. HS:Y
[2024-04-19 15:20] LABS: Albumin 3.6 g/dL (3.2-4.8); Alkaline Phosphatase 60 U/L (46-116); Anion Gap 9 (5-15); Aspartate Aminotransferase 14 U/L (13-40); BUN/Creatinine Ratio 15.2 (10.0-20.0); Bilirubin, Total 0.4 mg/dL (0.2-1.0); Calcium 8.9 mg/dL (8.7-10.4); Carbon Dioxide 24 mmol/L (20-31); Lipase 46 U/L (12-53); Potassium 3.6 mmol/L (3.5-5.1); Total Protein 6.5 g/dL (5.7-8.2)
[2024-04-19 15:23] LABS: Alanine Aminotransferase 9 U/L (7-40); Blood Urea Nitrogen 25 mg/dL (9-23); Chloride 94 mmol/L (98-107); Glucose 116 mg/dL (74-106); Sodium 127 mmol/L (136-145)
[2024-04-19 15:25] LABS: Basophils # (auto) 0 10 ^3/uL (0-0.2); Basophils % (auto) 0.4 % (0.0-2.0); Eosinophils # (auto) 0.1 10 ^3/uL (0-0.8); Eosinophils % (auto) 0.6 % (0.0-7.0); Hematocrit 43.1 % (41.0-53.0); Hemoglobin 14.4 g/dL (13.5-17.5); Lymphocytes # (auto) 0.9 10 ^3/uL (0.4-5.4); Lymphocytes % (auto) 7.8 % (10.0-50.0); Mean Corpuscular Hemoglobin 26.3 pg (28.0-32.0); Mean Corpuscular Hgb Conc. 33.3 g/dL (32.0-36.0); Mean Corpuscular Volume 78.9 fL (80.0-100.0); Monocytes % (auto) 8.3 % (0.0-12.0); Neutrophils # (auto) 9.5 10 ^3/uL (1.6-8.6); Neutrophils % (auto) 82.9 % (37.0-80.0); Nucleated Red Blood Cells % 0.1 %; Platelet Count (auto) 569 10^3/uL (140-450); Red Blood Cells 5.47 10^6/uL (4.5-5.90); Red Cell Distribution Width 14.5 % (11.8-14.3); White Blood Cell 11.5 10^3/uL (4.4-10.8)
[2024-04-19 15:33] VITALS: PULSE 110; RESP 20; O2SAT 95
[2024-04-19] MEDS: ONDANSETRON HCL 4 MG/2 ML VIAL IV ONE (15:34)
[2024-04-19] MEDS: MORPHINE SULFATE 4 MG/ML SYR/VIAL IV ONE (15:35)
--- NOTE | 2024-04-19 17:21 | ED.PDOC ---
GI ASSESSMENT HPI Comments 48-year-old male with a history of recently diagnosed colon mass suspicious for colorectal cancer and ascites brought in by family, referred by primary physician for hospital admission due to severe ascites and shortness of breath. Patient states he was hospitalized last week, underwent paracentesis with removal of 5 L of ascitic fluid. Three days ago he began to develop worsening abdominal distention and now is to the point where he is having difficulty breathing due to the abdominal distention. He saw his primary physician today for a routine visit, at which point he was referred to the ER he denies any fever, nausea, vomiting, diarrhea, constipation or dysuria. He denies any chest pain. Chief Complaint: Shortness of Breath Time Seen by MD: 14:10 Primary Care Provider: CANDACE Allergies: Coded Allergies: NO KNOWN ALLERGIES (Unverified , 04/13/24) Home Meds No Active Prescriptions or Reported Meds Mode of Arrival: Wheelchair Past Medical History Past Medical History (Other): Colon mass suspicious for colorectal cancer, ascites Surgical History: Denies all surgeries Family History Family History: Reviewed,noncontributory to illness Social History Smoker: Non-Smoker Alcohol: Denies ETOH Use Drugs: Denies Drug Use Lives In: Home All Other Systems: Reviewed and Negative (Comprehensive systems review obtained and negative except for what is stated in the HPI.) Physical Exam General Appearance: No Apparent Distress HEENT: Other (Pupils and face symmetric. Moist mucous membranes.) Neck: Full Range of Motion, Normal Inspection Respiratory: Decreased Breath Sounds, No Accessory Muscle Use, No Respiratory Distress Cardiovascular: No Edema, No JVD, Regular Rate/Rhythm Breast Exam: Deferred Gastrointestinal: Distended, Tenderness, Other (Tense ascites with mild diffuse tenderness to palpation) Genitalia: Deferred Pelvic: Deferred Rectal: Deferred Extremities: Normal inspection, Normal range of motion, Non-tender, No pedal edema Neurologic: Alert (Oriented x4), Normal Affect, Normal Mood, Other (Moves all extremities. No gross focal deficit.) Cerebellar Function: NOT DONE Reflexes: NOT DONE Skin: Dry, Normal Color, Warm Lymphatic: NOT DONE EKG EKG : Comments Sinus tach, rate 108, normal AR and QRS intervals, QTC 465, right axis deviation, possible old inferior infarct, nonspecific T change. Was a procedure done? Was a procedure done?: No GI differential Dx Differential Diagnosis: Bowel Obstruction, Constipation, Inflammatory BD, Ischemic Bowel, UTI, Dehydration, Electrolyte Imbalance, Bacterial, Viral, Impaction, Renal Failure, Other (Pneumonia, CHF, COPD, among others) X-Ray, Labs, Meds, VS Vital Signs Date Time Temp Pulse Resp B/P (MAP) Pulse Ox O2 Delivery O2 Flow Rate FiO2 04/19/24 16:25 107 16 132/94 (107) 95 04/19/24 16:24 107 16 132/94 04/19/24 15:39 97.9 110 20 138/94 (109) 95 97.9 04/19/24 15:35 110 20 138/94 04/19/24 15:33 110 20 95 Room Air* 0 21 04/19/24 14:21 108 04/19/24 14:08 99.1 110 24 127/91 (103) 96 Lab Test 04/19/24 16:09 04/19/24 14:38 Range/Units Troponin I High Sensitivity 25 24 </=54 ng/L White Blood Count 11.5 H 4.4-10.8 10^3/uL Red Blood Count 5.47 4.5-5.90 10^6/uL Hemoglobin 14.4 13.5-17.5 g/dL Hematocrit 43.1 41.0-53.0 % Mean Corpuscular Volume 78.9 L 80.0-100.0 fL Mean Corpuscular Hemoglobin 26.3 L 28.0-32.0 pg Mean Corpuscular Hemoglobin Concent 33.3 32.0-36.0 g/dL Red Cell Distribution Width 14.5 H 11.8-14.3 % Platelet Count 569 H 140-450 10^3/uL Mean Platelet Volume 8.6 6.9-10.8 fL Neutrophils (%) (Auto) 82.9 H 37.0-80.0 % Lymphocytes (%) (Auto) 7.8 L 10.0-50.0 % Monocytes (%) (Auto) 8.3 0.0-12.0 % Eosinophils (%) (Auto) 0.6 0.0-7.0 % Basophils (%) (Auto) 0.4 0.0-2.0 % Neutrophils # (Auto) 9.5 H 1.6-8.6 10 ^3/uL Lymphocytes # (Auto) 0.9 0.4-5.4 10 ^3/uL Monocytes # (Auto) 1.0 0-1.3 10 ^3/uL Eosinophils # (Auto) 0.1 0-0.8 10 ^3/uL Basophils # (Auto) 0 0-0.2 10 ^3/uL Nucleated Red Blood Cells 0.1 % Sodium Level 127 #L 136-145 mmol/L Potassium Level 3.6 3.5-5.1 mmol/L Chloride Level 94 L 98-107 mmol/L Carbon Dioxide Level 24 20-31 mmol/L Anion Gap 9 5-15 Blood Urea Nitrogen 25 H 9-23 mg/dL Creatinine 1.65 H 0.700-1.30 mg/dL Glomerular Filtration Rate Calc 51 >90 mL/min BUN/Creatinine Ratio 15.2 10.0-20.0 Serum Glucose 116 H 74-106 mg/dL Lactic Acid Level 1.5 0.4-2.0 mmol/L Calcium Level 8.9 8.7-10.4 mg/dL Total Bilirubin 0.4 0.2-1.0 mg/dL Aspartate Amino Transferase (AST) 14 13-40 U/L Alanine Aminotransferase (ALT) 9 7-40 U/L Alkaline Phosphatase 60 46-116 U/L Total Protein 6.5 5.7-8.2 g/dL Albumin 3.6 3.2-4.8 g/dL Lipase 46 12-53 U/L Current Medications Medications (Trade) Dose Ordered Sig/Tamy Route Start Time Stop Time Status Last Admin Morphine Sulfate 4 mg ONCE ONCE IV 04/19/24 14:15 04/19/24 14:16 DC 04/19/24 15:35 Ondansetron HCl (Zofran) 4 mg ONCE ONCE IV 04/19/24 14:15 04/19/24 14:16 DC 04/19/24 15:34 PROCEDURE(s): ABPL - CT AB PEL WO CON-NO ORAL OR IV REASON: abd distention, sob ORDER NUMBER(s): [id number], ACCESSION NUMBER(s): [id number] CT ABDOMEN AND PELVIS WITHOUT CONTRAST CLINICAL HISTORY: abd distention, sob TECHNIQUE: Multiple contiguous axial images of the abdomen and pelvis without intravenous contrast. The images were reformatted degenerate coronal and sagittal reconstructions. All CT scans at this medical facility are performed using dose modulation techniques as appropriate to a performed exam including the following:Automated exposure control was utilized; adjustment of the MA and/or KV according to patient size; and use of iterative reconstruction technique. Radiation Dose Information: CT Dose: CTDI volume is 25 mGy. Dose-length product is 1686 mGy*cm Comparison: CT CT AB PEL WO CON-NO ORAL OR IV on DOS: 04/13/24 FINDINGS: Evaluation of the abdomen and pelvis is limited without intravenous contrast. There is redemonstration of irregular circumferential wall thickening in the sigmoid colon suspicious for primary malignancy. The small and large bowel loops demonstrate normal caliber without evidence of bowel obstruction. The stomach appears within normal limits. The liver, gallbladder, pancreas, kidneys, adrenal glands, and spleen appear within normal limits. There is large amount of ascites. There is no free intraperitoneal air. There is stable appearance of the mesentery with fat stranding and soft tissue nodularities along the anterior mesentery. Again seen are prominent lymph nodes along the left common iliac chain. There are also mildly prominent bilateral inguinal lymph nodes. The abdominal aorta and IVC appear within normal limits. The bladder appears unremarkable for the degree of distention. Pelvic organ appears within normal limits. There is no gross evidence of a pelvic mass. There is free fluid in the pelvis. There is atelectasis in the right lung base. The left lung base is clear. There is no acute osseous abnormality. IMPRESSION: 1. Redemonstration of irregular circumferential wall thickening in the sigmoid colon suspicious for primary colon malignancy. 2. Redemonstrated are prominent lymph nodes along the left common iliac chain. Metastatic lymphadenopathy is not excluded. 3. Stable appearance of the mesentery with fat stranding and soft tissue nodularities. Omental caking /metastasis not excluded. 4. Large amount of ascites. HS:Y X-Ray, Labs, Meds, VS Comment 48-year-old male with a history of recently diagnosed colon mass suspicious for colorectal cancer and associated ascites referred by primary doctor for evaluation of severe ascites causing difficulty breathing Vitals remarkable for heart rate 108 Exam remarkable for severe abdominal distention/ tense ascites and diminished breath sounds at lung bases Rhythm strip independently interpreted by me: Sinus tach, rate 108, no ectopy. CT abdomen and pelvis: IMPRESSION: 1. Redemonstration of irregular circumferential wall thickening in the sigmoid colon suspicious for primary colon malignancy. 2. Redemonstrated are prominent lymph nodes along the left common iliac chain. Metastatic lymphadenopathy is not excluded. 3. Stable appearance of the mesentery with fat stranding and soft tissue nodularities. Omental caking /metastasis not excluded. 4. Large amount of ascites. CBC remarkable for WBC 11.5, platelets 569, metabolic panel remarkable for sodium 127, chloride 94, BUN 25, creatinine 1.65, lactate normal, troponin negative x2, lipase normal Patient treated with the following in the ED: Morphine 4 mg IV, Zofran 4 mg IV On re-evaluation, patient states pain has improved. Vitals are stable. He is saturating normally on nasal cannula oxygen and not in respiratory distress. Plan is to admit the patient for therapeutic paracentesis and electrolyte geoff ection. Images Reviewed?: Images reviewed and evaluated by me Time of 1ST Reevaluation: 17:19 Reevaluation 1ST: Improved Patient Education/Counseling: Diagnosis, Treatment, Need For Follow Up Family Education/Counseling: Diagnosis, Treatment, Need For Follow Up Departure 1 Departure Time of Disposition: 17:19 Impression: Primary Impression: Ascites Qualified Codes: R18.0 - Malignant ascites Additional Impressions: Shortness of breath Electrolyte imbalance Disposition: ADMITTED INPATIENT Admit to: Med Surg Condition: Guarded e-Prescriptions No Active Prescriptions or Reported Meds Critical Care Note Critical Care Time?: No Stability Stability form required: No Heart Score Heart Score: Heart Score Response (Comments) Value History N/A 0 EKG N/A 0 Age N/A 0 Risk Factors N/A 0 Troponin N/A 0 Total 0 CHIDI RAMSAY MD Apr 19, 2024 17:21
--- NOTE | 2024-04-19 17:56 | DVH ---
CHEST RADIOGRAPH Indication: Shortness of breath Technique: Single frontal view of the chest was obtained COMPARISON: None FINDINGS: Lines and Tubes: None Lungs: Clear Pleura: No effusion. No pneumothorax. Cardiomediastinal contours: Unremarkable Bones: Unremarkable IMPRESSION: 1. Elevated right hemidiaphragm 2. No pulmonary nodules in the lung cross Normal heart size No pulmonary infiltrates
[2024-04-19] MEDS ORDERED: ONDANSETRON HCL 4 MG/2 ML VIAL IV PRN (19:30)
[2024-04-19] MEDS: cefTRIAXone 1GM/50ML D5W 50 ML IV ONE (20:17)
[2024-04-19] MEDS: SODIUM CHLORIDE 0.9% 500 ML IV ONE (20:18)
--- NOTE | 2024-04-19 20:55 | DVHHP2 ---
History of Present Illness Reason for Visit: Abdominal distention History of Present Illness 48-year-old presents for evaluation of abdominal distention. Patient reports recently being diagnosed with colorectal cancer. He states having a paracentesis done last week. Today he returns advised by his primary care physician for evaluation of recurrent ascites and abdominal distention. Patient reports feeling short of breath due to increased abdominal pressure. Denies fever or chills. No nausea or vomiting. No other acute complaints reported. Past Medical History Colorectal cancer Past Surgical History Denies Family History Noncontributory Smoke: No ALCOHOL: none Drugs: None Lives: with Family Review of Systems Review of Systems Review of systems are currently negative otherwise addressed in HPI. Allergies: Coded Allergies: NO KNOWN ALLERGIES (Unverified , 04/13/24) Medications Current Medications Medications Dose Ordered Sig/Tamy Route Start Time Stop Time Status Last Admin Dose Admin Ceftriaxone Sodium 50 ml @ 100 mls/hr DAILY@09 IV 04/20/24 09:00 Acetaminophen/ Hydrocodone Bitart 1 tab Q4HP PRN PO 04/19/24 19:30 Ondansetron HCl 4 mg Q4HP PRN IV 04/19/24 19:30 Acetaminophen 650 mg Q6HP PRN PO 04/19/24 19:30 Exam Vital Signs Vital Signs Date Time Temp Pulse Resp B/P (MAP) Pulse Ox O2 Delivery O2 Flow Rate FiO2 04/19/24 16:25 107 16 132/94 (107) 95 04/19/24 15:39 97.9 97.9 04/19/24 15:33 Room Air* 0 21 Exam Gen: 48-year-old male in mild distress, morbidly obese Skin: Warm, dry, normal color and texture, no rash. HEENT: Normocephalic atraumatic, mucous membranes moist and pink. Neck: Cervical and supraclavicular nodes normal without enlargement, trachea is midline, thyroid gland is normal without masses. Pulmonary: Clear to auscultation and percussion bilaterally. Cardiac: Regular rate and rhythm. No murmur Abdomen: Soft, nontender, nondistended, bowel sounds present all 4 quadrants, no guarding, no rigidity, no organomegaly. Extremities: No cyanosis, clubbing, no edema Neuro: Cranial nerves II through XII grossly intact, normal affect and speech, no focal motor deficits. Labs/Xrays ORDERING PHYSICIAN: CHIDI RAMSAY MD PROCEDURE(s): ABPL - CT AB PEL WO CON-NO ORAL OR IV REASON: abd distention, sob ORDER NUMBER(s): [id number], ACCESSION NUMBER(s): [id number] CT ABDOMEN AND PELVIS WITHOUT CONTRAST CLINICAL HISTORY: abd distention, sob TECHNIQUE: Multiple contiguous axial images of the abdomen and pelvis without intravenous contrast. The images were reformatted degenerate coronal and sagittal reconstructions. All CT scans at this medical facility are performed using dose modulation techniques as appropriate to a performed exam including the following:Automated exposure control was utilized; adjustment of the MA and/or KV according to patient size; and use of iterative reconstruction technique. Radiation Dose Information: CT Dose: CTDI volume is 25 mGy. Dose-length product is 1686 mGy*cm Comparison: CT CT AB PEL WO CON-NO ORAL OR IV on DOS: 04/13/24 FINDINGS: Evaluation of the abdomen and pelvis is limited without intravenous contrast. There is redemonstration of irregular circumferential wall thickening in the sigmoid colon suspicious for primary malignancy. The small and large bowel loops demonstrate normal caliber without evidence of bowel obstruction. The stomach appears within normal limits. The liver, gallbladder, pancreas, kidneys, adrenal glands, and spleen appear within normal limits. There is large amount of ascites. There is no free intraperitoneal air. There is stable appearance of the mesentery with fat stranding and soft tissue nodularities along the anterior mesentery. Again seen are prominent lymph nodes along the left common iliac chain. There are also mildly prominent bilateral inguinal lymph nodes. The abdominal aorta and IVC appear within normal limits. The bladder appears unremarkable for the degree of distention. Pelvic organ appears within normal limits. There is no gross evidence of a pelvic mass. There is free fluid in the pelvis. There is atelectasis in the right lung base. The left lung base is clear. There is no acute osseous abnormality. IMPRESSION: 1. Redemonstration of irregular circumferential wall thickening in the sigmoid colon suspicious for primary colon malignancy. 2. Redemonstrated are prominent lymph nodes along the left common iliac chain. Metastatic lymphadenopathy is not excluded. 3. Stable appearance of the mesentery with fat stranding and soft tissue nodularities. Omental caking /metastasis not excluded. 4. Large amount of ascites. HS:Y RING PHYSICIAN: CHIDI RAMSAY MD PROCEDURE(s): CXR1 - CHEST XRAY 1 VIEW REASON: Shortness of breath ORDER NUMBER(s): [id number], ACCESSION NUMBER(s): [id number] CHEST RADIOGRAPH Indication: Shortness of breath Technique: Single frontal view of the chest was obtained COMPARISON: None FINDINGS: Lines and Tubes: None Lungs: Clear Pleura: No effusion. No pneumothorax. Cardiomediastinal contours: Unremarkable Bones: Unremarkable IMPRESSION: 1. Elevated right hemidiaphragm 2. No pulmonary nodules in the lung cross Normal heart size No pulmonary infiltrates Labs Test 04/19/24 18:15 04/19/24 14:38 Range/Units Troponin I High Sensitivity 26 </=54 ng/L White Blood Count 11.5 H 4.4-10.8 10^3/uL Red Blood Count 5.47 4.5-5.90 10^6/uL Hemoglobin 14.4 13.5-17.5 g/dL Hematocrit 43.1 41.0-53.0 % Mean Corpuscular Volume 78.9 L 80.0-100.0 fL Mean Corpuscular Hemoglobin 26.3 L 28.0-32.0 pg Mean Corpuscular Hemoglobin Concent 33.3 32.0-36.0 g/dL Red Cell Distribution Width 14.5 H 11.8-14.3 % Platelet Count 569 H 140-450 10^3/uL Mean Platelet Volume 8.6 6.9-10.8 fL Neutrophils (%) (Auto) 82.9 H 37.0-80.0 % Lymphocytes (%) (Auto) 7.8 L 10.0-50.0 % Monocytes (%) (Auto) 8.3 0.0-12.0 % Eosinophils (%) (Auto) 0.6 0.0-7.0 % Basophils (%) (Auto) 0.4 0.0-2.0 % Neutrophils # (Auto) 9.5 H 1.6-8.6 10 ^3/uL Lymphocytes # (Auto) 0.9 0.4-5.4 10 ^3/uL Monocytes # (Auto) 1.0 0-1.3 10 ^3/uL Eosinophils # (Auto) 0.1 0-0.8 10 ^3/uL Basophils # (Auto) 0 0-0.2 10 ^3/uL Nucleated Red Blood Cells 0.1 % Sodium Level 127 #L 136-145 mmol/L Potassium Level 3.6 3.5-5.1 mmol/L Chloride Level 94 L 98-107 mmol/L Carbon Dioxide Level 24 20-31 mmol/L Anion Gap 9 5-15 Blood Urea Nitrogen 25 H 9-23 mg/dL Creatinine 1.65 H 0.700-1.30 mg/dL Glomerular Filtration Rate Calc 51 >90 mL/min BUN/Creatinine Ratio 15.2 10.0-20.0 Serum Glucose 116 H 74-106 mg/dL Lactic Acid Level 1.5 0.4-2.0 mmol/L Calcium Level 8.9 8.7-10.4 mg/dL Total Bilirubin 0.4 0.2-1.0 mg/dL Aspartate Amino Transferase (AST) 14 13-40 U/L Alanine Aminotransferase (ALT) 9 7-40 U/L Alkaline Phosphatase 60 46-116 U/L Total Protein 6.5 5.7-8.2 g/dL Albumin 3.6 3.2-4.8 g/dL Lipase 46 12-53 U/L Assessment/Plan Assessment/Plan Assessment Colon cancer with metastases Malignant ascites Acute kidney injury, vasomotor nephropathy Plan Admit the patient to [facility] to the hospitalist IR consultation Hematology/oncology consultation Rocephin Continue treatment per orders Plan discussed with: Patient My Orders Orders - SHASHANK MERCEDES AGACNP Procedure Category Date Status Time * Hematology/Oncology CONS 04/19/24 Transmitted Consult 19:24 * Radiologist Consult CONS 04/19/24 Transmitted 19:24 Ceftriaxone 1gm/50ml PHA 04/20/24 In Process D5w (Rocephin) 09:00 Basic Metabolic Panel LAB 04/20/24 Verified 04:00 Admit ADMIT 04/19/24 Transmitted 19:24 Hydrocodone-Acet PHA 04/19/24 In Process 5/325mg Tab ([place] 19:30 Ondansetron Hcl PHA 04/19/24 In Process (Zofran) 19:30 Complete Blood Count LAB 04/20/24 Verified 04:00 Cardiac DIET 04/20/24 Transmitted Diet-2gna,Lofat,Lochol Breakfast Condition: Stable [place] 04/19/24 In Process 19:24 Acetaminophen Tablet PHA 04/19/24 In Process (Tylenol Tablet) 19:30 Bedrest With Bathroom [place] 04/19/24 In Process Privileg 19:24 Date of Service: Apr 19, 2024 Billing Provider: SHASHANK MERCEDES Common Visit Codes: [id number] INP/OBS CARE (HIGH) SHASHANK MERCEDES Apr 19, 2024 20:55
[2024-04-20] VITALS (7 sets, daily range): BP systolic 109–126; BP diastolic 69–89; PULSE 85–105; RESP 14–18; TEMP 98–98.3; O2SAT 91–98
[2024-04-20 05:17] LABS: Eosinophils # (auto) 0 10 ^3/uL (0-0.8); Mean Corpuscular Volume 79.2 fL (80.0-100.0); Monocytes # (auto) 1.1 10 ^3/uL (0-1.3); Monocytes % (auto) 7.7 % (0.0-12.0); Neutrophils # (auto) 11.8 10 ^3/uL (1.6-8.6); White Blood Cell 13.8 10^3/uL (4.4-10.8)
[2024-04-20 05:20] LABS: Basophils # (auto) 0.1 10 ^3/uL (0-0.2); Basophils % (auto) 0.4 % (0.0-2.0); Eosinophils % (auto) 0.2 % (0.0-7.0); Hematocrit 43.5 % (41.0-53.0); Hemoglobin 14.5 g/dL (13.5-17.5); Lymphocytes # (auto) 0.9 10 ^3/uL (0.4-5.4); Lymphocytes % (auto) 6.2 % (10.0-50.0); Mean Corpuscular Hemoglobin 26.4 pg (28.0-32.0); Mean Corpuscular Hgb Conc. 33.3 g/dL (32.0-36.0); Neutrophils % (auto) 85.5 % (37.0-80.0); Nucleated Red Blood Cells % 0.6 %; Platelet Count (auto) 545 10^3/uL (140-450); Red Blood Cells 5.49 10^6/uL (4.5-5.90); Red Cell Distribution Width 14.5 % (11.8-14.3)
[2024-04-20] MEDS: HYDROcodone-ACET 5/325MG TAB PO PRN (05:33)
[2024-04-20 05:55] LABS: Anion Gap 10 (5-15); Carbon Dioxide 24 mmol/L (20-31); Potassium 3.9 mmol/L (3.5-5.1)
[2024-04-20 05:56] LABS: Calcium 9.1 mg/dL (8.7-10.4)
[2024-04-20 06:01] LABS: BUN/Creatinine Ratio 14.2 (10.0-20.0)
[2024-04-20 06:41] LABS: Blood Urea Nitrogen 29 mg/dL (9-23); Chloride 94 mmol/L (98-107); Glucose 117 mg/dL (74-106); Sodium 128 mmol/L (136-145)
[2024-04-20 07:52] LABS: INR 1.05 (0.9-1.15); Partial Thromboplastin Time 30.9 SEC (24.5-34.5); Prothrombin Time 11.1 sec (9.3-11.8)
--- NOTE | 2024-04-20 07:57 | DVH ---
ULTRASOUND ABDOMEN limited, 4 QUADRANTS INDICATION: FLUID CHECK FOR POSSIBLE PARACENTESIS Evaluate for ascites. TECHNIQUE: The four quadrants of the abdomen were scanned in huitron-scale to assess for the presence of ascites. N o solid organ assessment was performed. FINDINGS/IMPRESSIONS: Ascites is seen in all 4 quadrants of the abdomen. The largest pocket is in the right lower quadrant .
[2024-04-20] MEDS: cefTRIAXone 1GM/50ML D5W 50 ML IV SCH (10:22)
[2024-04-20 11:37] LABS: Urine Bacteria None Seen /hpf (None Seen)
--- NOTE | 2024-04-20 11:37 | DVH ---
US PARACENTESIS, HISTORY: ASCITES PROCEDURE: Informed consent was obtained. The patient was placed in supine position. A limited locali zation ultrasound of the abdomen was obtained, and the skin site over the largest pocket of fluid was marked and entry site was prepped with chlorhexidine which was allowed to dry and draped in the usua l sterile fashion. Time out was performed. Following administration of 1% lidocaine local anesthetic, a 5 [place] centesis needle catheter was percutaneously inserted into the peritoneal collection until fluid was aspirated. The catheter was advanced into the fluid collection [place] [id number] cc of fluid was aspirated and specimen sent for appropriate cultures/cytology/cultures and c ytology. The catheter was then removed and a sterile dressing applied. No immediate complication was identified. FINDINGS: Limited ultrasound imaging demonstrates moderate to large ascites. Aspirated fluid was glen r and serous. IMPRESSION: US-guided paracentesis with 10.2L removed.
[2024-04-20 12:11] LABS: Urine Blood Negative /uL (Negative); Urine Clarity Turbid (Clear); Urine Color Yellow (Yellow); Urine Hyaline Cast MOD /lpf (0 - 2); Urine Mucus FEW (None Seen); Urine Protein, UAD 1+ (Negative); Urine Specific Gravity 1.034 (1.001-1.035); Urine Squamous Epithelial Cell FEW /hpf (<5); Urine Urobilinogen Normal (Negative); Urine WBC 21 /HPF (0-3); Urine pH 5.5 (5.0-9.0)
[2024-04-20] MEDS: ALBUMIN 25% 100 ML IV ONE (12:37)
--- NOTE | 2024-04-20 12:37 | DVHPN2 ---
Subjective Patient reports having hematuria. Improvement with his breathing after having paracentesis. Reviewed: Care Plan, H&P, Medications, Previous Orders Changes from previous H/P or p: No Changes General: Per HPI Objective Vitals Vital Signs Date Time Temp Pulse Resp B/P (MAP) Pulse Ox O2 Delivery O2 Flow Rate FiO2 04/20/24 09:44 98.1 98 18 119/72 (88) 95 98.1 04/20/24 02:08 Room Air* 0 21 General Appearance: Alert, Oriented X3, Cooperative, mild distress HEENT: Atraumatic, PERRLA Lungs: Clear to auscultation, Normal air movement Cardiovascular: Normal S1, Normal S2 Abdomen: Normal bowel sounds, Soft, No tenderness Back: Flank Tenderness, Midline Tenderness Musculoskeletal: Normal sensory function, Normal motor function Neuro: Normal gait, Normal speech Psych/Mental Status: Mental status NL, Mood NL Medications Current Medications Medications Dose Ordered Sig/Tamy Route Start Time Stop Time Status Last Admin Dose Admin Ceftriaxone Sodium 50 ml @ 100 mls/hr DAILY@09 IV 04/20/24 09:00 04/20/24 10:22 100 MLS/HR Acetaminophen/ Hydrocodone Bitart 1 tab Q4HP PRN PO 04/19/24 19:30 04/20/24 05:33 1 TAB Ondansetron HCl 4 mg Q4HP PRN IV 04/19/24 19:30 Acetaminophen 650 mg Q6HP PRN PO 04/19/24 19:30 Laboratory Results Laboratory Tests 04/20/24 04:18 Chemistry Test 04/19/24 14:38 04/20/24 04:18 Albumin 3.6 g/dL (3.2-4.8) Calcium Level 8.9 mg/dL (8.7-10.4) 9.1 mg/dL (8.7-10.4) Total Protein 6.5 g/dL (5.7-8.2) Coagulation Test 04/20/24 04:18 Prothrombin Time 11.1 sec (9.3-11.8) Prothrombin Time INR 1.05 (0.9-1.15) Activated Partial Thromboplast Time 30.9 SEC (24.5-34.5) Lipid panel Test 04/19/24 14:38 Lipase 46 U/L (12-53) LFT Test 04/19/24 14:38 Alanine Aminotransferase (ALT) 9 U/L (7-40) Alkaline Phosphatase 60 U/L (46-116) Aspartate Amino Transferase (AST) 14 U/L (13-40) Total Bilirubin 0.4 mg/dL (0.2-1.0) Urinalysis Test 04/20/24 11:00 Urine Color Yellow (Yellow) Urine Clarity Turbid (Clear) H Urine pH 5.5 (5.0-9.0) Urine Specific [place] 1.034 (1.001-1.035) Urine Protein 1+ (Negative) H Urine Ketones Negative (Negative) Urine Blood Negative /uL (Negative) Urine Nitrite Negative (Negative) Urine Bilirubin Negative (Negative) Urine Urobilinogen Normal mg/dL (Negative) Urine Leukocyte Esterase Negative /uL (Negative) Urine RBC 6 /hpf (0 - 3) Urine Microscopic WBC 21 /HPF (0-3) H Urine Squamous Epithelial Cells Few /hpf (<5) Urine Bacteria None seen /hpf (None Seen) Urine Hyaline Casts Mod /lpf (0 - 2) Urine Mucus Few (None Seen) Urine Glucose Normal mg/dL (Normal) Labs and/or images reviewed: Labs reviewed by me, Image(s) reviewed by me Assessment/Plan Assessment/Plan Impression: -reducible colorectal cancer -ascites -metastatic disease -hematuria -leukocytosis, rule out sepsis -acute kidney injury, probable vasomotor nephropathy Plan: -radiology consultation: Patient was status post paracentesis with 10 L removed -continue Rocephin, add Flagyl -oncology consultation -renal ultrasound -nephrology consultation -urine culture -repeat labs in a.m. -Port-A-Cath placement if recommended by Dr. Saldaña. Total time spent with patient discussing and formulating plan of care: 35 minutes. This medical document was created using an electronic medical record system with [employer] dictation system. Although this document has been carefully reviewed, there may still be some phonetic and typographical errors. These areas are purely typographical due to imperfections of the software programs, and do not reflect any compromise in the patient's medical care. Plan discussed with: Patient, Other (RN) Date of Service: Apr 20, 2024 Billing Provider: ADAM MOMIN NP Common Visit Codes: [id number] INP/OBS CARE(HIGH) ADAM MOMIN NP Apr 20, 2024 12:37
--- NOTE | 2024-04-20 13:10 | DVH ---
INDICATION: hematuria TECHNIQUE: Multiple real-time sonographic images of the kidneys and bladder were obtained. COMPARISON: None FINDINGS: The right kidney measures 11 cm in length, which is normal in size. There is normal echogenicity of t he right kidney. No hydronephrosis. The left kidney measures 11 cm in length, which is normal in size. There is normal echogenicity of th e left kidney. No hydronephrosis. No large intraluminal masses are seen in the bladder. IMPRESSION: 1. Normal sonographic appearance of the kidneys. No hydronephrosis.
[2024-04-20 13:37] LABS: Body Fluid Polymorphonuclear 56 % (0-25); Body Fluid Red Blood Cells 23137 CUMM (0-2000); Body Fluid White Blood Cells 811 CUMM (0-200)
[2024-04-20] MEDS: metroNIDAZOLE 500MG/100ML 100 ML IV SCH (19:08)
[2024-04-21] VITALS (9 sets, daily range): BP systolic 108–136; BP diastolic 66–85; PULSE 76–101; RESP 17–22; TEMP 97.8–98.3; O2SAT 91–96
[2024-04-21] MEDS: metroNIDAZOLE 500MG/100ML 100 ML IV SCH (03:46)
[2024-04-21] MEDS: LIDOCAINE W/ EPINEPHRINE 2% INJ 20ML VIAL ONE (08:13)
[2024-04-21] MEDS: fentaNYL CITRATE 100 MCG/2 ML VL ONE (08:13)
[2024-04-21] MEDS: MIDAZOLAM HCL 2MG/2ML 2ml VIAL (1mg/ml) ONE (08:14)
[2024-04-21] MEDS: LIDOCAINE 2%HCL (LOCAL ANESTH.) INJ 20ML MDV ONE (08:14)
[2024-04-21] MEDS: HEPARIN SODIUM (PORCINE) 5000 UNITS/ML 1ML VIAL ONE (08:18)
[2024-04-21] MEDS: ceFAZolin 1GM/50ML 50 ML IV ONE (08:59)
[2024-04-21] MEDS: ACETAMINOPHEN 325 MG TAB PO PRN (10:36)
--- NOTE | 2024-04-21 10:47 | DVH ---
XY Insertion of Venous Cath, HISTORY: JOSE CATH PROCEDURE: Informed consent was obtained. The patient was placed supine on the interventional table. 1 gram of Ancef was given A limited localization ultrasound of the right neck base was obtained. The right upper chest and neck base were prepped with chlorhexidine which was allowed to dry and draped i n the usual sterile fashion. Time out was performed. With real-time ultrasound guidance, the internal jugular vein was accessed with a micropuncture kit, and an image documenting patency sent to PACS. The planned skin tract and the port placement site were were infiltrated with lidocaine with epinephr ine. The subcutaneous pocket was created with sharp and blunt dissection. The catheter was tunneled t hrough the skin tract to the neck site. The [address] port was attached to the tubing flushed. The port was then sutured to the pocket floor with 2.0 Nylon sutures. The catheter was trimmed to desired length of 21 cm. The internal jugular vein entrance site was serially dilated and the catheter was p laced through a peel-a-way sheath. The port was flushed with heparinized saline and demonstrated sati sfactory flow. The skin openings were sutured closed in 1 layers with Vicryl, as well as and Dermabon d and then sterile dressings applied. A post procedure image was obtained. No immediate complication was identified. DAP 231 FLUOROSCOPY TIME: 1.0 minutes. SEDATION: Dr. Sonya Lovelace was personally responsible for the administration of moderate sedation during the procedure performed, including the use of an independent trained observer who had no other duties during the procedure. The drugs utilized were IV fentanyl and versed (see nursing log for details). The total time of supervision by the attending physician was approximately 45 minutes. FINDINGS: Widely patent right internal jugular vein. Post procedure image demonstrates [id number] in the right upper chest with the tip upper cavoatrial junction. IMPRESSION: Successful placement of 8 [place] right chest [id number]. Please contact IR for removal when no longer needed.
[2024-04-21] MEDS: ALBUMIN 25% 50 ML IV SCH (12:11)
[2024-04-21 13:08] LABS: Protein, Body Fluid 4.5 g/dL (.)
[2024-04-21 13:37] LABS: Basophils # (auto) 0 10 ^3/uL (0-0.2); Monocytes # (auto) 1.3 10 ^3/uL (0-1.3); Neutrophils # (auto) 7.4 10 ^3/uL (1.6-8.6); Nucleated Red Blood Cells % 0.1 %; White Blood Cell 9.3 10^3/uL (4.4-10.8)
[2024-04-21 13:39] LABS: Basophils % (auto) 0.4 % (0.0-2.0); Eosinophils # (auto) 0.1 10 ^3/uL (0-0.8); Eosinophils % (auto) 0.6 % (0.0-7.0); Hematocrit 39.7 % (41.0-53.0); Hemoglobin 13.2 g/dL (13.5-17.5); Lymphocytes # (auto) 0.5 10 ^3/uL (0.4-5.4); Lymphocytes % (auto) 5.9 % (10.0-50.0); Mean Corpuscular Hemoglobin 26.2 pg (28.0-32.0); Mean Corpuscular Hgb Conc. 33.2 g/dL (32.0-36.0); Mean Corpuscular Volume 78.8 fL (80.0-100.0); Monocytes % (auto) 13.6 % (0.0-12.0); Neutrophils % (auto) 79.5 % (37.0-80.0); Platelet Count (auto) 381 10^3/uL (140-450); Red Blood Cells 5.03 10^6/uL (4.5-5.90); Red Cell Distribution Width 14.5 % (11.8-14.3)
[2024-04-21 13:40] LABS: Potassium 3.9 mmol/L (3.5-5.1)
[2024-04-21 13:41] LABS: Anion Gap 8 (5-15); Carbon Dioxide 27 mmol/L (20-31)
[2024-04-21 13:43] LABS: Calcium 8.2 mg/dL (8.7-10.4); Chloride 95 mmol/L (98-107); Sodium 130 mmol/L (136-145)
[2024-04-21 13:46] LABS: BUN/Creatinine Ratio 18.2 (10.0-20.0); Glucose 103 mg/dL (74-106)
--- NOTE | 2024-04-21 13:47 | DVHINCON2 ---
Date of service: Apr 21, 2024 Referring Physician Quinn Wright Reason for Consultation Colorectal cancer with malignant ascites History of Present Illness 48-year-old presents for evaluation of abdominal distention. Patient was recently hospitalized to our facility and CT scan had shown moderate ascites and a sigmoid abnormality. I performed a colonoscopy for him which showed a long sigmoid mass which was nonobstructing at this time. The patient had undergone a paracentesis also at that time. The pathologist notified me that the patient's ascitic fluid and biopsies from his colorectal mass were consistent with a colorectal cancer adenocarcinoma however final immunostains were still pending. Patient was referred by his primary care physician for recurrent abdominal distention and reaccumulation of ascitic fluid. Patient underwent a repeat paracentesis yesterday. His ascitic fluid also shows moderate amount of blood c ells and he suspected to have peritoneal metastases. Patient underwent a Port-A-Cath placement today. He is currently on a cardiac diet. He is scheduled to have an oncology visit next week to start his chemotherapy. Operative Report DATE OF OPERATION: 04/16/24 PROCEDURE: Colonoscopy with biopsy and Cinthia ink injection tattoo. PREOPERATIVE INDICATION: The patient is a 48 -year-old male undergoing colonoscopy for abnormal finding GI tract imaging rule out sigmoid mass POSTOPERATIVE DIAGNOSES: 1. Patient had a friable circumferential ulcerated inflamed sigmoid mass with distal raised edges from which multiple biopsies were obtained This extended from about 18 cm to 35 cm from the anal verge. The distal and proximal edges were marked with Cinthia ink 2. Trace to 1+ internal hemorrhoids otherwise normal examination up to the cecum Past Medical History Past Medical History Colorectal cancer Past Surgical History Past Surgical History Recent colonoscopy Family History: Patient reports no known family medical history. Allergies: Coded Allergies: NO KNOWN ALLERGIES (Unverified , 04/13/24) Home Meds No Active Prescriptions or Reported Meds Current Medications Current Medications Medications (Trade) Dose Ordered Sig/Tamy Route PRN Reason Start Time Stop Time Status Last Admin Metronidazole 100 ml @ 100 mls/hr Q8HR IV 04/20/24 14:00 04/20/24 20:29 DC 04/20/24 19:08 Metronidazole 100 ml @ 100 mls/hr Q8H IV 04/21/24 03:00 04/21/24 11:17 Albumin Human 50 ml @ 100 mls/hr Q8H IV 04/21/24 08:15 04/22/24 00:44 04/21/24 12:11 Vital Signs Vital Signs Date Time Temp Pulse Resp B/P (MAP) Pulse Ox O2 Delivery O2 Flow Rate FiO2 04/21/24 13:24 98.0 101 17 113/66 (82) 94 98.0 04/21/24 07:38 Room Air* 0 21 Physical Exam Gen: 48-year-old male in no distress, morbidly obese Skin: Warm, dry, normal color and texture, no rash. HEENT: Normocephalic atraumatic, mucous membranes moist and pink. Neck: Cervical and supraclavicular nodes normal without enlargement, trachea is midline, thyroid gland is normal without masses. Pulmonary: Clear to auscultation and percussion bilaterally. Cardiac: Regular rate and rhythm. No murmur Abdomen: Soft, nontender,distended, bowel sounds present all 4 quadrants, no guarding, no rigidity, no organomegaly. Extremities: No cyanosis, clubbing, no edema Neuro: Cranial nerves II through XII grossly intact, normal affect and speech, no focal motor deficits. Labs/Diagnostic Data Labs Test 04/21/24 12:58 04/20/24 11:00 04/20/24 09:50 04/20/24 04:18 Range/Units Urine Color Yellow Yellow Urine Clarity Turbid H Clear Urine pH 5.5 5.0-9.0 Urine Specific [place] 1.034 1.001-1.035 Urine Protein 1+ H Negative Urine Ketones Negative Negative Urine Blood Negative Negative /uL Urine Nitrite Negative Negative Urine Bilirubin Negative Negative Urine Urobilinogen Normal Negative mg/dL Urine Leukocyte Esterase Negative Negative /uL Urine RBC 6 0 - 3 /hpf Urine Microscopic WBC 21 H 0-3 /HPF Urine Squamous Epithelial Cells Few <5 /hpf Urine Bacteria None seen None Seen /hpf Urine Hyaline Casts Mod 0 - 2 /lpf Urine Mucus Few None Seen Urine Osmolality 627 mOsm/kg Urine Glucose Normal Normal mg/dL Body Fluid Source Peritoneal fluid Body Fluid pH 8.0 Body Fluid WBC (Manual) 811 H 0-200 CUMM Body Fluid RBC (Manual) 14655 H 0-2000 CUMM Body Fluid Mononuclear Cells 44 % Body Fluid Polymorphonuclear Cells 56 H 0-25 % Body Fluid Glucose 62 . mg/dL Body Fluid Total Protein 4.5 . g/dL Body Fluid Lactate Dehydrogenase 565 . IU/L Eosinophils (%) (Auto) 0.2 0.0-7.0 % Eosinophils # (Auto) 0 0-0.8 10 ^3/uL Basophils # (Auto) 0.1 0-0.2 10 ^3/uL Nucleated Red Blood Cells 0.6 % Prothrombin Time 11.1 9.3-11.8 sec Prothrombin Time INR 1.05 0.9-1.15 Activated Partial Thromboplast Time 30.9 24.5-34.5 SEC Test 04/20/24 00:42 04/19/24 14:38 Range/Units Troponin I High Sensitivity 32 </=54 ng/L Lactic Acid Level 1.5 0.4-2.0 mmol/L Total Bilirubin 0.4 0.2-1.0 mg/dL Aspartate Amino Transferase (AST) 14 13-40 U/L Alanine Aminotransferase (ALT) 9 7-40 U/L Alkaline Phosphatase 60 46-116 U/L Total Protein 6.5 5.7-8.2 g/dL Albumin 3.6 3.2-4.8 g/dL Lipase 46 12-53 U/L Microbiology Date/Time Source Procedure Growth Status 04/20/24 11:00 Voided Urine Urine Culture - Preliminary Resulted 04/20/24 09:50 Ascities Fluid Gram Stain - Final Resulted 04/20/24 09:50 Ascities Fluid Body Fluid Culture - Preliminary Resulted CT SCAN ABD PELVIS IMPRESSION: 1. Redemonstration of irregular circumferential wall thickening in the sigmoid colon suspicious for primary colon malignancy. 2. Redemonstrated are prominent lymph nodes along the left common iliac chain. Metastatic lymphadenopathy is not excluded. 3. Stable appearance of the mesentery with fat stranding and soft tissue nodularities. Omental caking /metastasis not excluded. 4. Large amount of ascites. Problems(with codes): (1) Ascites (2) Shortness of breath (3) Colon neoplasm (4) Metastatic disease Plan/Recommendation Plan Patient is tolerating diet Patient will follow up with his oncologist next week to start chemotherapy Overall prognosis is guarded and this was discussed with patient and at the bedside was requesting to arrange outpatient interval paracentesis and I will send the order from my clinic to Radiology to arrange a weekly paracentesis Prognosis remains guarded Plan discussed with: Patient, Spouse, Other (Nurse) MARISELA BURNETT MD Apr 21, 2024 13:47
[2024-04-21 13:48] LABS: Blood Urea Nitrogen 31 mg/dL (9-23)
[2024-04-21] MEDS ORDERED: FURO1TAB33 PO (15:08)
[2024-04-21] MEDS ORDERED: HYDR-4902 PO (15:08)
[2024-04-21] MEDS ORDERED: LEVO500T91 PO (15:08)
[2024-04-21] MEDS ORDERED: METR-344 PO (15:08)
--- NOTE | 2024-04-21 15:41 | DVHINCON2 ---
Date of service: Apr 21, 2024 Reason for Consultation QIANA History of Present Illness 48year old male presents with new onset abd distension in mar 2024. He was s/p colonoscopy and biopsy which showed adenocarcinoma. He returns due to severe ascites he is s/p paracentesis, Nephrology consulted for QIANA baseline renal function WNL reports no previous medical f/u Allergies: Coded Allergies: NO KNOWN ALLERGIES (Unverified , 04/13/24) Home Meds Active Scripts Hydrocodone-Acetaminophen (Hydrocodone Bitartrate/AC 5-325 mg) 1 Tab Tab, 1 TAB PO Q8HP PRN for 5 Days, #15 TAB Prov:SALJOSE CORNEJOPH DIET CONSULTANT 04/21/24 Furosemide (Lasix) 20 Mg Tb, 1 TAB PO DAILY for 30 Days, #30 TAB 1 Refill Prov:JOSE MOMINPH DIET CONSULTANT 04/21/24 Levofloxacin Hemihydrate (LEVAQUIN 500 MG) 500 Mg Tab, 1 TAB PO DAILY for 5 Days, #5 TAB Prov:JOSE MOMINPH DIET CONSULTANT 04/21/24 Metronidazole (Flagyl) 500 Mg Tab, 1 TAB PO TID for 5 Days, #15 TAB Prov:ADAM MOMIN DIET CONSULTANT 04/21/24 Current Medications Current Medications Medications (Trade) Dose Ordered Sig/Tamy Route PRN Reason Start Time Stop Time Status Last Admin Metronidazole 100 ml @ 100 mls/hr Q8H IV 04/21/24 03:00 04/21/24 11:17 Albumin Human 50 ml @ 100 mls/hr Q8H IV 04/21/24 08:15 04/22/24 00:44 04/21/24 14:43 Family History: Patient reports no known family medical history. Review of Systems abd distension H&P Exam Vital Signs/I&O Vital Sign Date Time Temp Pulse Resp B/P (MAP) Pulse Ox O2 Delivery O2 Flow Rate FiO2 04/21/24 13:24 98.0 101 17 113/66 (82) 94 98.0 04/21/24 07:38 Room Air* 0 21 Intake and Output 04/20/24 04/21/24 19:00 07:00 Intake Total 1050 ml 500 ml Balance 1050 ml 500 ml Intake Oral 1000 ml 400 ml IV Total 50 ml 100 ml # Voids 5 1 Physical Exam obese middle age male NAD distended abd 1+ b/l ankle edema rrr Labs/Diagnostic Data Labs/Diagnostic Data Laboratory Tests Test 04/21/24 12:58 04/20/24 11:00 04/20/24 09:50 04/20/24 04:18 Range/Units White Blood Count 9.3 # 13.8 H 4.4-10.8 10^3/uL Red Blood Count 5.03 5.49 4.5-5.90 10^6/uL Hemoglobin 13.2 L 14.5 13.5-17.5 g/dL Hematocrit 39.7 L 43.5 41.0-53.0 % Mean Corpuscular Volume 78.8 L 79.2 L 80.0-100.0 fL Mean Corpuscular Hemoglobin 26.2 L 26.4 L 28.0-32.0 pg Mean Corpuscular Hemoglobin Concent 33.2 33.3 32.0-36.0 g/dL Red Cell Distribution Width 14.5 H 14.5 H 11.8-14.3 % Platelet Count 381 545 H 140-450 10^3/uL Mean Platelet Volume 8.4 8.7 6.9-10.8 fL Neutrophils (%) (Auto) 79.5 85.5 H 37.0-80.0 % Lymphocytes (%) (Auto) 5.9 L 6.2 L 10.0-50.0 % Monocytes (%) (Auto) 13.6 H 7.7 0.0-12.0 % Eosinophils (%) (Auto) 0.6 0.2 0.0-7.0 % Basophils (%) (Auto) 0.4 0.4 0.0-2.0 % Neutrophils # (Auto) 7.4 11.8 H 1.6-8.6 10 ^3/uL Lymphocytes # (Auto) 0.5 0.9 0.4-5.4 10 ^3/uL Monocytes # (Auto) 1.3 1.1 0-1.3 10 ^3/uL Eosinophils # (Auto) 0.1 0 0-0.8 10 ^3/uL Basophils # (Auto) 0 0.1 0-0.2 10 ^3/uL Nucleated Red Blood Cells 0.1 0.6 % Sodium Level 130 L 128 L 136-145 mmol/L Potassium Level 3.9 3.9 3.5-5.1 mmol/L Chloride Level 95 L 94 L 98-107 mmol/L Carbon Dioxide Level 27 24 20-31 mmol/L Anion Gap 8 10 5-15 Blood Urea Nitrogen 31 H 29 H 9-23 mg/dL Creatinine 1.70 H 2.04 H 0.700-1.30 mg/dL Glomerular Filtration Rate Calc 49 39 >90 mL/min BUN/Creatinine Ratio 18.2 14.2 10.0-20.0 Serum Glucose 103 117 H 74-106 mg/dL Calcium Level 8.2 L 9.1 8.7-10.4 mg/dL Urine Color Yellow Yellow Urine Clarity Turbid H Clear Urine pH 5.5 5.0-9.0 Urine Specific [place] 1.034 1.001-1.035 Urine Protein 1+ H Negative Urine Ketones Negative Negative Urine Blood Negative Negative /uL Urine Nitrite Negative Negative Urine Bilirubin Negative Negative Urine Urobilinogen Normal Negative mg/dL Urine Leukocyte Esterase Negative Negative /uL Urine RBC 6 0 - 3 /hpf Urine Microscopic WBC 21 H 0-3 /HPF Urine Squamous Epithelial Cells Few <5 /hpf Urine Bacteria None seen None Seen /hpf Urine Hyaline Casts Mod 0 - 2 /lpf Urine Mucus Few None Seen Urine Osmolality 627 mOsm/kg Urine Glucose Normal Normal mg/dL Body Fluid Source Peritoneal fluid Body Fluid pH 8.0 Body Fluid WBC (Manual) 811 H 0-200 CUMM Body Fluid RBC (Manual) 74814 H 0-2000 CUMM Body Fluid Mononuclear Cells 44 % Body Fluid Polymorphonuclear Cells 56 H 0-25 % Body Fluid Glucose 62 . mg/dL Body Fluid Total Protein 4.5 . g/dL Body Fluid Lactate Dehydrogenase 565 . IU/L Prothrombin Time 11.1 9.3-11.8 sec Prothrombin Time INR 1.05 0.9-1.15 Activated Partial Thromboplast Time 30.9 24.5-34.5 SEC Test 04/20/24 00:42 04/19/24 18:15 04/19/24 16:09 04/19/24 14:38 Range/Units Troponin I High Sensitivity 32 26 25 24 </=54 ng/L White Blood Count 11.5 H 4.4-10.8 10^3/uL Red Blood Count 5.47 4.5-5.90 10^6/uL Hemoglobin 14.4 13.5-17.5 g/dL Hematocrit 43.1 41.0-53.0 % Mean Corpuscular Volume 78.9 L 80.0-100.0 fL Mean Corpuscular Hemoglobin 26.3 L 28.0-32.0 pg Mean Corpuscular Hemoglobin Concent 33.3 32.0-36.0 g/dL Red Cell Distribution Width 14.5 H 11.8-14.3 % Platelet Count 569 H 140-450 10^3/uL Mean Platelet Volume 8.6 6.9-10.8 fL Neutrophils (%) (Auto) 82.9 H 37.0-80.0 % Lymphocytes (%) (Auto) 7.8 L 10.0-50.0 % Monocytes (%) (Auto) 8.3 0.0-12.0 % Eosinophils (%) (Auto) 0.6 0.0-7.0 % Basophils (%) (Auto) 0.4 0.0-2.0 % Neutrophils # (Auto) 9.5 H 1.6-8.6 10 ^3/uL Lymphocytes # (Auto) 0.9 0.4-5.4 10 ^3/uL Monocytes # (Auto) 1.0 0-1.3 10 ^3/uL Eosinophils # (Auto) 0.1 0-0.8 10 ^3/uL Basophils # (Auto) 0 0-0.2 10 ^3/uL Nucleated Red Blood Cells 0.1 % Sodium Level 127 #L 136-145 mmol/L Potassium Level 3.6 3.5-5.1 mmol/L Chloride Level 94 L 98-107 mmol/L Carbon Dioxide Level 24 20-31 mmol/L Anion Gap 9 5-15 Blood Urea Nitrogen 25 H 9-23 mg/dL Creatinine 1.65 H 0.700-1.30 mg/dL Glomerular Filtration Rate Calc 51 >90 mL/min BUN/Creatinine Ratio 15.2 10.0-20.0 Serum Glucose 116 H 74-106 mg/dL Lactic Acid Level 1.5 0.4-2.0 mmol/L Calcium Level 8.9 8.7-10.4 mg/dL Total Bilirubin 0.4 0.2-1.0 mg/dL Aspartate Amino Transferase (AST) 14 13-40 U/L Alanine Aminotransferase (ALT) 9 7-40 U/L Alkaline Phosphatase 60 46-116 U/L Total Protein 6.5 5.7-8.2 g/dL Albumin 3.6 3.2-4.8 g/dL Lipase 46 12-53 U/L Assessment Acute kidney injury hemodynamic new diagnosis colon Ca malignant ascites s/p paracentesis proteinuria morbid obesity renal function improved rec low dose lasix in outpatient for f/u reports no previous w/u of chronic medical conditions will w/u outpatient GI and oncology w/u planned for chemotherapy Plan discussed with: Patient, Spouse BERE YUN MD Apr 21, 2024 15:41
--- NOTE | 2024-04-21 16:24 | DVHDS2 ---
Discharge Summary Date of Admission Apr 19, 2024 at 19:24 Date of Discharge: Apr 21, 2024 Admitting Diagnosis Ascites Labs/Diagnostic Data: Laboratory Results Test 04/21/24 12:58 04/20/24 11:00 04/20/24 09:50 04/20/24 04:18 White Blood Count 9.3 10^3/uL (4.4-10.8) Red Blood Count 5.03 10^6/uL (4.5-5.90) Hemoglobin 13.2 g/dL (13.5-17.5) Hematocrit 39.7 % (41.0-53.0) Mean Corpuscular Volume 78.8 fL (80.0-100.0) Mean Corpuscular Hemoglobin 26.2 pg (28.0-32.0) Mean Corpuscular Hemoglobin Concent 33.2 g/dL (32.0-36.0) Red Cell Distribution Width 14.5 % (11.8-14.3) Platelet Count 381 10^3/uL (140-450) Mean Platelet Volume 8.4 fL (6.9-10.8) Neutrophils (%) (Auto) 79.5 % (37.0-80.0) Lymphocytes (%) (Auto) 5.9 % (10.0-50.0) Monocytes (%) (Auto) 13.6 % (0.0-12.0) Eosinophils (%) (Auto) 0.6 % (0.0-7.0) Basophils (%) (Auto) 0.4 % (0.0-2.0) Neutrophils # (Auto) 7.4 10 ^3/uL (1.6-8.6) Lymphocytes # (Auto) 0.5 10 ^3/uL (0.4-5.4) Monocytes # (Auto) 1.3 10 ^3/uL (0-1.3) Eosinophils # (Auto) 0.1 10 ^3/uL (0-0.8) Basophils # (Auto) 0 10 ^3/uL (0-0.2) Nucleated Red Blood Cells 0.1 % Sodium Level 130 mmol/L (136-145) Potassium Level 3.9 mmol/L (3.5-5.1) Chloride Level 95 mmol/L (98-107) Carbon Dioxide Level 27 mmol/L (20-31) Anion Gap 8 (5-15) Blood Urea Nitrogen 31 mg/dL (9-23) Creatinine 1.70 mg/dL (0.700-1.30) Glomerular Filtration Rate Calc 49 mL/min (>90) BUN/Creatinine Ratio 18.2 (10.0-20.0) Serum Glucose 103 mg/dL (74-106) Calcium Level 8.2 mg/dL (8.7-10.4) Urine Color Yellow (Yellow) Urine Clarity Turbid (Clear) Urine pH 5.5 (5.0-9.0) Urine Specific [place] 1.034 (1.001-1.035) Urine Protein 1+ (Negative) Urine Ketones Negative (Negative) Urine Blood Negative /uL (Negative) Urine Nitrite Negative (Negative) Urine Bilirubin Negative (Negative) Urine Urobilinogen Normal mg/dL (Negative) Urine Leukocyte Esterase Negative /uL (Negative) Urine RBC 6 /hpf (0 - 3) Urine Microscopic WBC 21 /HPF (0-3) Urine Squamous Epithelial Cells Few /hpf (<5) Urine Bacteria None seen /hpf (None Seen) Urine Hyaline Casts Mod /lpf (0 - 2) Urine Mucus Few (None Seen) Urine Osmolality 627 mOsm/kg Urine Glucose Normal mg/dL (Normal) Body Fluid Source Peritoneal fluid Body Fluid pH 8.0 Body Fluid WBC (Manual) 811 CUMM (0-200) Body Fluid RBC (Manual) 98865 CUMM (0-2000) Body Fluid Mononuclear Cells 44 % Body Fluid Polymorphonuclear Cells 56 % (0-25) Body Fluid Glucose 62 mg/dL (.) Body Fluid Total Protein 4.5 g/dL (.) Body Fluid Lactate Dehydrogenase 565 IU/L (.) Prothrombin Time 11.1 sec (9.3-11.8) Prothrombin Time INR 1.05 (0.9-1.15) Activated Partial Thromboplast Time 30.9 SEC (24.5-34.5) Test 04/20/24 00:42 04/19/24 14:38 Troponin I High Sensitivity 32 ng/L (</=54) Lactic Acid Level 1.5 mmol/L (0.4-2.0) Total Bilirubin 0.4 mg/dL (0.2-1.0) Aspartate Amino Transferase (AST) 14 U/L (13-40) Alanine Aminotransferase (ALT) 9 U/L (7-40) Alkaline Phosphatase 60 U/L (46-116) Total Protein 6.5 g/dL (5.7-8.2) Albumin 3.6 g/dL (3.2-4.8) Lipase 46 U/L (12-53) Other Laboratory Tests 04/21/24 12:58 Brief Hx & Hospital Course: History of Present Illness 48-year-old presents for evaluation of abdominal distention. Patient reports recently being diagnosed with colorectal cancer. He states having a paracentesis done last week. Today he returns advised by his primary care physician for evaluation of recurrent ascites and abdominal distention. Patient reports feeling short of breath due to increased abdominal pressure. Denies fever or chills. No nausea or vomiting. No other acute complaints reported. Course of hospitalization: Biopsy results were obtained on the patient's previous paracentesis. Discussion was made with the patient and . At this time he will have Port-A-Cath placed after paracentesis. Discussion was made with oncologist, Dr. Saldaña, who states that he will start treatment once he arrives in the office next week. Patient was noted to have acute kidney injury for which Nephrology consultation was placed. Case was discussed with Dr. Trimble. Patient was renal function improved. Patient had Port-A-Cath placed. He will be continued on antibiotic therapy with Levaquin 500 mg p.o. daily x5 days as well as Flagyl 500 mg p.o. 3 times a day. Patient will also be treated with Corona 5/325 q.8 hours as needed for abdominal pain. Patient has follow up appointments with his PCP, Oncology as well as Nephrology. All questions were answered with both the patient and to his . Physical examination General: Alert and Oriented x3. No acute distress. Well-nourished. Obese Eyes: EOMI. Anicteric. HENT: Moist mucous membranes. Lungs: Clear to auscultation bilaterally. No accessory muscle use. Cardiovascular: Regular rate and rhythm. No murmur. No JVD. Abdomen: Soft, non-tender and non-distended. No palpable masses. Extremities: No edema. Non-tender. Skin: No rashes or lesions. Warm. Neurologic: No focal neurological deficits. CN II-XII grossly intact, but not individually tested. Psychiatric: Cooperative. Appropriate mood and affect. Total time spent with patient discussing and formulating plan of care: 35 minutes. This medical document was created using an electronic medical record system with [employer] dictation system. Although this document has been carefully reviewed, there may still be some phonetic and typographical errors. These areas are purely typographical due to imperfections of the software programs, and do not reflect any compromise in the patient's medical care. Condition at Discharge: Guarded Final Diagnosis/Problems List Colorectal cancer, Ascites Discharge Disposition: Home Discharge Instruct/Medications Diet: Regular Activity: No Restrictions, As Tolerated Follow Up/Referral: Dr Saldaña at schedule appointment next week PCP in 1-2 weeks Medications: Lasix 20mg po daily Flagyl 500mg po tid x 5 days Levaquin 500mg po daily x 5 days [place] 5/325 Q8hrs prn pain 36 Discharge Statement: "Patient was advised to return to the ER or call 911 if any headaches, dizziness, shortness of breath, chest pain, abdominal pain, bleeding, fevers, or worsening of medical condition. Patient was counseled about treatment plan, medications, possible side effects, patientverbalized understanding. All questions were answered to the best of my ability. This discharge took greater then 30 minutes in planning, reviewing documentation, counseling the patient, and discussing with other team members." ASSESSMENT ASSESSMENT Assessment Colorectal cancer, Ascites Date of Service: Apr 21, 2024 Billing Provider: ADAM MOMIN NP Common Visit Codes: 05524-NJT/OBS DISCH DAY >30min ADAM MOMIN NP Apr 21, 2024 16:24
== END 2024-04-21 17:16 | disposition home or self-care (01) | DRG 374 ==
LOC: ER 13:56 → OVERFLOW 19:24 → UNDODEPER 21:23 → WEST WING 04-20 23:16
PROVIDERS: ADMIT Nurse Practitioner Acute Care; ATTEND Nurse Practitioner Acute Care
PROC: 0W9G3ZX Drainage of Peritoneal Cavity, Percutaneous Approach, Diagnostic (ICD-10-PCS; principal; 2024-04-20)
PROC: 0JH63WZ Insertion of Totally Implantable Vascular Access Device into Chest Subcutaneous Tissue and Fascia, Percutaneous Approach (ICD-10-PCS; 2024-04-21)
PROC: 02HV33Z Insertion of Infusion Device into Superior Vena Cava, Percutaneous Approach (ICD-10-PCS; 2024-04-21)
PROC: B5181ZA Fluoroscopy of Superior Vena Cava using Low Osmolar Contrast, Guidance (ICD-10-PCS; 2024-04-21)
PROC: B548ZZA Ultrasonography of Superior Vena Cava, Guidance (ICD-10-PCS; 2024-04-21)
DX: C19 Malignant neoplasm of rectosigmoid junction (principal); N17.0 Acute kidney failure with tubular necrosis; R18.0 Malignant ascites; Z68.41 Body mass index [BMI] 40.0-44.9, adult; E66.01 Morbid (severe) obesity due to excess calories; D72.829 Elevated white blood cell count, unspecified; Z79.899 Other long term (current) drug therapy
CPT/HCPCS: 36415; 36558; 49083; 71045; 74176; 76705; 76775; 76942; 77001; 80048; 80053; 81001; 83605; 83690; 83935; 83986; 84484; 85025; 85610; 85730; 86850; 86900; 86901; 87081; 87086; 87205; 89051; 93005; 96365; 96375; 99152; C1894; G0378; J2250; J2405; J3490; P9047

== ENCOUNTER 2024-05-05 15:09 | Inpatient (IN) | payer BC ==
[~2024-05-05] VITALS: Ht 175.3 cm; Wt 117.5 kg
[~2024-05-05 15:09] MED LIST: FURO1TAB33 PO; HYDR-4902 PO; LEVO500T91 PO; METR-344 PO
[2024-05-05] MEDS: ONDANSETRON HCL 4 MG/2 ML VIAL ONE (15:31)
[2024-05-05] MEDS: MORPHINE SULFATE 4 MG/ML SYR/VIAL ONE (15:31)
[2024-05-05 15:55] VITALS: O2SAT 95
--- NOTE | 2024-05-05 16:13 | DVH ---
CT ABDOMEN AND PELVIS WITHOUT CONTRAST CLINICAL HISTORY: SOB TECHNIQUE: Multiple contiguous axial images of the abdomen and pelvis without intravenous contrast. T he images were reformatted degenerate coronal and sagittal reconstructions. All CT scans at this medical facility are performed using dose modulation techniques as appropriate t o a performed exam including the following:Automated exposure control was utilized; adjustment of the MA and/or KV according to patient size; and use of iterative reconstruction technique. Radiation Dose Information: CT Dose: CTDI volume is 32.35 mGy. Dose-length product is 1971.85 mGy*cm Comparison: CT CT AB PEL WO CON-NO ORAL OR IV on DOS: 04/19/24, CT CT AB PEL WO CON-NO ORAL OR IV on D OS: 04/13/24 FINDINGS: Evaluation of the abdomen and pelvis is limited without intravenous contrast. There is stable appearing irregular circumferential wall thickening in the sigmoid colon. The small a nd large bowel loops demonstrate normal caliber without evidence of bowel obstruction. The stomach gr ossly appears within normal limits. The liver, gallbladder, pancreas, kidneys, adrenal glands, and spleen appear within normal limits. Is large amount of ascites. There is no free intraperitoneal air. There is stable appearance of the m esentery with fat stranding and soft tissue nodularities along the anterior mesentery. There is stab le prominent left iliac chain lymph nodes. The stomach grossly appears unremarkable. The small and large bowel loops demonstrate normal caliber . There are scattered diverticula in the colon without evidence of acute diverticulitis. The abdominal aorta and IVC appear within normal limits. The bladder appears unremarkable for the degree of distention. Pelvic organ appears within normal delvalle its. There is no gross evidence of a pelvic mass. There is free fluid in the pelvis. Lung bases are clear. There is no acute osseous abnormality. IMPRESSION: 1. Stable appearing irregular suspicious for primary colon malignancy. 2. There are stable prominent left iliac chain lymph nodes. There is also stable appearance of the me sentery with fat stranding and soft tissue nodularities. Omental caking/metastasis is not excluded. 3. Large amount of ascites. HS:Y
[2024-05-05 16:14] LABS: Basophils # (auto) 0 10 ^3/uL (0-0.2); Basophils % (auto) 0.1 % (0.0-2.0); Eosinophils # (auto) 0.1 10 ^3/uL (0-0.8); Neutrophils # (auto) 11.4 10 ^3/uL (1.6-8.6); Nucleated Red Blood Cells % 0.1 %; Red Cell Distribution Width 15.1 % (11.8-14.3); White Blood Cell 12.5 10^3/uL (4.4-10.8)
[2024-05-05 16:16] LABS: Eosinophils % (auto) 0.5 % (0.0-7.0); Hematocrit 41.8 % (41.0-53.0); Hemoglobin 13.7 g/dL (13.5-17.5); Lymphocytes # (auto) 0.3 10 ^3/uL (0.4-5.4); Mean Corpuscular Hemoglobin 25.6 pg (28.0-32.0); Mean Corpuscular Hgb Conc. 32.8 g/dL (32.0-36.0); Mean Corpuscular Volume 78.2 fL (80.0-100.0); Monocytes # (auto) 0.8 10 ^3/uL (0-1.3); Monocytes % (auto) 6.1 % (0.0-12.0); Neutrophils % (auto) 91.3 % (37.0-80.0); Platelet Count (auto) 508 10^3/uL (140-450); Red Blood Cells 5.35 10^6/uL (4.5-5.90)
[2024-05-05] MEDS: ONDANSETRON HCL 4 MG/2 ML VIAL IV ONE (16:33)
[2024-05-05] MEDS: MORPHINE SULFATE 4 MG/ML SYR/VIAL IV ONE (16:33)
[2024-05-05 16:39] LABS: Alanine Aminotransferase 11 U/L (7-40); Albumin 3.4 g/dL (3.2-4.8); Alkaline Phosphatase 107 U/L (46-116); Anion Gap 16 (5-15); Aspartate Aminotransferase 21 U/L (13-40); Total Protein 6.3 g/dL (5.7-8.2)
[2024-05-05 16:40] LABS: Bilirubin, Total 0.3 mg/dL (0.2-1.0)
[2024-05-05 16:47] LABS: BUN/Creatinine Ratio 18.5 (10.0-20.0)
[2024-05-05 16:49] LABS: Calcium 8.3 mg/dL (8.7-10.4); Carbon Dioxide 16 mmol/L (20-31); Chloride 86 mmol/L (98-107); Glucose 125 mg/dL (74-106); Lipase 57 U/L (12-53)
[2024-05-05 16:54] LABS: Blood Urea Nitrogen 163 mg/dL (9-23); Potassium 7.2 mmol/L (3.5-5.1); Sodium 118 mmol/L (136-145)
--- NOTE | 2024-05-05 17:02 | ED.PDOC ---
SOB-HPI HPI Comments PATIENT BROUGHT IN BY COMPLAINING OF SHORTNESS A BREATH. PATIENT STATES SHORTNESS A BREATH HAS GOTTEN WORSE OVER THE LAST 2-3 DAYS. WORSE TODAY. HAVING A HARD TIME LYING FLAT AND CATCHING HIS BREATH. STATES ON FRIDAY HE DID HAVE PARACENTESIS DONE WHERE THEY DRAINED 9 L OF FLUID. PATIENT REPORTS A HISTORY OF COLON CANCER WHICH HAS BEEN METASTASIZED INTO LYMPH NODES. STATES HE HAS BEEN SEEN BY ONCOLOGIST CAN NOT READ OF THE NAME. STATES HE WAS DIAGNOSIS WAS MADE APPROXIMATE ONE MONTH AGO. HE DID HAVE PORT-A-CATH PLACED FOR FUTURE CHEMOTHERAPY TREATMENTS. STATES HE HAS BEEN DEALING WITH A COUGH OVER THE LAST WEEK, COUGH IS NONPRODUCTIVE. NO FEVER NO CHILLS. FEELING LETHARGIC Chief Complaint: Shortness of Breath Time Seen by MD: 15:12 Primary Care Provider: HANNA Garcia notes: Nurses Notes Information Source: Patient Mode of Arrival: Wheelchair Past Medical History Past Medical History (Other): COLORECTAL CANCER METASTASIZED Surgical History: Denies all surgeries Family History Family History: Reviewed,noncontributory to illness Social History Smoker: Non-Smoker Alcohol: Denies ETOH Use Drugs: Denies Drug Use Lives In: Home Constitutional: reports: fatigue, malaise; denies: chills, diaphoresis, fever, sweats, weakness, others EENTM: denies: blurred vision, double vision, ear bleeding, ear discharge, ear drainage, ear pain, ear ringing, eye pain, eye redness, hearing loss, mouth pain, mouth swelling, nasal discharge, nose bleeding, nose congestion, nose pain, photophobia, tearing, throat pain, throat swelling, voice changes, others Respiratory: reports: cough, SOB at rest, SOB with excertion; denies: hemoptysis, orthopnea, shortness of breath, stridor, wheezing, others Cardiovascular: denies: chest pain, dizzy spells, diaphoresis, Dyspnea on exertion, edema, irregular heart beat, left arm pain, lightheadedness, p alpitations, PND, syncope, others Gastrointestinal: reports: abdomen distended; denies: abdominal pain, blood streaked bowels, constipated, diarrhea, dysphagia, difficulty swallowing, hematemesis, melena, nausea, poor appetite, poor fluid intake, rectal bleeding, rectal pain, vomiting, others Genitourinary: denies: burning, dysuria, flank pain, frequency, hematuria, incontinence, penile discharge, penile sore, pain, testicle pain, testicle swe lling, urgency, others Neurological: denies: dizziness, fainting, headache, left sided numbness, left sided weakness, numbness, paresthesia, pre-existing deficit, right sided numbness, right sided weakness, seizure, speech problems, tingling, tremors, weakness, others Musculoskeletal: denies: back pain, gout, joint pain, joint swelling, muscle pain, muscle stiffness, neck pain, others Integumetry: denies: bruises, change in color, change in hair/nails, dryness, laceration, lesions, lumps, rash, wounds, others Physical Exam General Appearance: No Apparent Distress, Normal HEENT: Normal ENT Inspection, Pharynx Normal, TMs Normal Neck: Full Range of Motion, Non-Tender, Normal, Normal Inspection Respiratory: Chest Non-Tender, Lungs Clear, No Accessory Muscle Use, No Respiratory Distress, Normal Breath Sounds Cardiovascular: No Edema, No JVD, No Murmur, No Gallop, Normal Peripheral Pulses, Regular Rate/Rhythm Breast Exam: Deferred Gastrointestinal: Distended, No Organomegaly, Normal Bowel Sounds, Soft Genitalia: Deferred Pelvic: Deferred Rectal: Deferred Extremities: No calf tenderness, Normal capillary refill, Normal inspection, Normal range of motion, Non-tender, No pedal edema Musculoskeletal : Apperance: Normal Neurologic: Alert, tank farm operator 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 Was a procedure done?: No Differential Dx Differential Diagnosis: CHF, COPD, Hyponatremia, Myocardial infarction, Respiratory Distress Comments ASCITES, METASTASIS OF CANCER, PLEURAL EFFUSION, X-Ray, Labs, Meds, VS Vital Signs Date Time Temp Pulse Resp B/P (MAP) Pulse Ox O2 Delivery O2 Flow Rate FiO2 05/05/24 16:33 100 12 113/72 05/05/24 15:55 95 Room Air* 0 21 05/05/24 15:53 93 22 105/69 (81) 95 05/05/24 15:15 97.6 96 28 99/72 (81) 96 05/05/24 15:15 28 96 Room Air* 0 21 Lab Test 05/05/24 16:05 Range/Units White Blood Count 12.5 H 4.4-10.8 10^3/uL Red Blood Count 5.35 4.5-5.90 10^6/uL Hemoglobin 13.7 13.5-17.5 g/dL Hematocrit 41.8 41.0-53.0 % Mean Corpuscular Volume 78.2 L 80.0-100.0 fL Mean Corpuscular Hemoglobin 25.6 L 28.0-32.0 pg Mean Corpuscular Hemoglobin Concent 32.8 32.0-36.0 g/dL Red Cell Distribution Width 15.1 H 11.8-14.3 % Platelet Count 508 H 140-450 10^3/uL Mean Platelet Volume 7.7 6.9-10.8 fL Neutrophils (%) (Auto) 91.3 H 37.0-80.0 % Lymphocytes (%) (Auto) 2.0 L 10.0-50.0 % Monocytes (%) (Auto) 6.1 0.0-12.0 % Eosinophils (%) (Auto) 0.5 0.0-7.0 % Basophils (%) (Auto) 0.1 0.0-2.0 % Neutrophils # (Auto) 11.4 H 1.6-8.6 10 ^3/uL Lymphocytes # (Auto) 0.3 L 0.4-5.4 10 ^3/uL Monocytes # (Auto) 0.8 0-1.3 10 ^3/uL Eosinophils # (Auto) 0.1 0-0.8 10 ^3/uL Basophils # (Auto) 0 0-0.2 10 ^3/uL Nucleated Red Blood Cells 0.1 % Sodium Level 118 *L 136-145 mmol/L Potassium Level 7.2 *H 3.5-5.1 mmol/L Chloride Level 86 L 98-107 mmol/L Carbon Dioxide Level 16 L 20-31 mmol/L Anion Gap 16 H 5-15 Blood Urea Nitrogen 163 *H 9-23 mg/dL Creatinine 8.81 H 0.700-1.30 mg/dL Glomerular Filtration Rate Calc 7 >90 mL/min BUN/Creatinine Ratio 18.5 10.0-20.0 Serum Glucose 125 H 74-106 mg/dL Lactic Acid Level 1.4 0.4-2.0 mmol/L Calcium Level 8.3 L 8.7-10.4 mg/dL Total Bilirubin 0.3 0.2-1.0 mg/dL Aspartate Amino Transferase (AST) 21 13-40 U/L Alanine Aminotransferase (ALT) 11 7-40 U/L Alkaline Phosphatase 107 46-116 U/L Ammonia 11 11-32 umol/L Total Protein 6.3 5.7-8.2 g/dL Albumin 3.4 3.2-4.8 g/dL Lipase 57 H 12-53 U/L Current Medications Medications (Trade) Dose Ordered Sig/Tamy Route Start Time Stop Time Status Last Admin Ondansetron HCl (Zofran) 4 mg ONCE ONCE IV 05/05/24 16:30 05/05/24 16:31 DC 05/05/24 16:33 Morphine Sulfate 4 mg ONCE ONCE IV 05/05/24 16:30 05/05/24 16:31 DC 05/05/24 16:33 X-Ray, Labs, Meds, VS Comment PATIENT WILL BE ADMITTED FOR HYPONATREMIA, HYPERKALEMIA, METASTASIS IN HIS COLORECTAL CANCER PATIENT WAS LARGEST SIZE WHICH MAY REQUIRE PARACENTESIS Time of 1ST Reevaluation: 17:01 Reevaluation 1ST: Unchanged Patient Education/Counseling: Diagnosis, Treatment Family Education/Counseling: Diagnosis, Treatment Departure 1 Departure Time of Disposition: 17:00 Impression: Primary Impression: Ascites Additional Impressions: Electrolyte imbalance Colon neoplasm Shortness of breath Metastatic disease Qualified Codes: C79.9 - Secondary malignant neoplasm of unspecified site Disposition: ADMITTED INPATIENT Condition: Guarded Discharged With: Self Critical Care Note Critical Care Time?: No Stability Stability form required: No Heart Score Heart Score: Heart Score Response (Comments) Value History Slightly Suspicious 0 EKG Normal 0 Age 45-64 1 Risk Factors 1 or 2 risk factors 1 Troponin Normal limit 0 Total 2 CHRISTELLE ARAGON May 05, 2024 17:02
[2024-05-05] MEDS: DEXTROSE (50%) 50ML SYRG IV ONE (17:20)
[2024-05-05] MEDS: ALBUTEROL SULF 2.5 MG/0.5ML(0.5%) NEB SOLN NEB ONE (17:21)
[2024-05-05] MEDS: SODIUM BICARB 8.4% 50Meq/50ml SYR INJ IV ONE (17:21)
[2024-05-05 17:22] LABS: Urine Bacteria None Seen /hpf (None Seen)
[2024-05-05] MEDS: InsuLIN REG 1unit/0.01ml Soln (100units/ml) IV ONE (17:29)
[2024-05-05 17:31] LABS: Urine Blood TRACE /uL (Negative); Urine Clarity Turbid (Clear); Urine Color Yellow (Yellow); Urine Hyaline Cast FEW /lpf (0 - 2); Urine Protein, UAD TRACE (Negative); Urine Specific Gravity 1.017 (1.001-1.035); Urine Squamous Epithelial Cell FEW /hpf (<5); Urine Urobilinogen Normal (Negative); Urine WBC 13 /HPF (0-3)
--- NOTE | 2024-05-05 18:53 | ECG ---
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
[2024-05-05 19:30] VITALS: PULSE 103; RESP 15; O2SAT 97
[2024-05-05] MEDS ORDERED: NITROGLYCERIN 0.4 MG SL TAB SL PRN (19:45)
[2024-05-05] MEDS: CALCIUM GLUC 1,000mg/50ml-NS 50 ML IV ONE (21:37)
[2024-05-05] MEDS: ONDANSETRON HCL 4 MG/2 ML VIAL IV PRN (21:42)
[2024-05-06] MEDS: FUROSEMIDE 40 MG/4 ML VIAL IV ONE ×2 (01:00→12:45)
--- NOTE | 2024-05-06 01:04 | DVHHP2 ---
History of Present Illness Reason for Visit: Shortness of breaths History of Present Illness 48-year-old male presents for evaluation of shortness for breath. Patient with a history of colorectal cancer with metastases to the lymph nodes presents for worsening shortness for breath. He states his abdomen becoming progressively more distended. He states having a paracentesis a week ago where they removed 9 L. He still needs to follow up with Oncology to schedule for chemotherapy. Denies nausea or vomiting. No chest pain. No fever or chills. No palpitations. Past Medical History Colon cancer Past Surgical History Denies Family History Noncontributory Smoke: No ALCOHOL: none Drugs: None Lives: with Family Review of Systems Review of Systems Review of systems are currently negative otherwise dressing HPI. Allergies: Coded Allergies: NO KNOWN ALLERGIES (Unverified , 04/13/24) Medications Current Medications Medications Dose Ordered Sig/Tamy Route Start Time Stop Time Status Last Admin Dose Admin Ondansetron HCl 4 mg Q4HP PRN IV 05/05/24 19:45 05/05/24 21:42 4 MG Nitroglycerin 0.4 mg Q5MINP PRN SL 05/05/24 19:45 Morphine Sulfate 2 mg Q30M PRN IV 05/05/24 19:45 Exam Vital Signs Vital Signs Date Time Temp Pulse Resp B/P (MAP) Pulse Ox O2 Delivery O2 Flow Rate FiO2 05/06/24 00:18 98.0 99 16 112/63 (79) 95 98.0 05/05/24 19:30 Room Air* 0 21 Exam Gen: 48-year-old male in mild distress Skin: Warm, dry, normal color and texture, no rash. HEENT: Normocephalic atraumatic, mucous membranes moist and pink. Neck: Cervical and supraclavicular nodes normal without enlargement, trachea is midline, thyroid gland is normal without masses. Pulmonary: Clear to auscultation and percussion bilaterally. Cardiac: Regular rate and rhythm. No murmur Abdomen: Soft, nontender, distended with ascites, bowel sounds present all 4 quadrants, no guarding, no rigidity, no organomegaly. Extremities: No cyanosis, clubbing, no edema Neuro: Cranial nerves II through XII grossly intact, normal affect and speech, no focal motor deficits. Labs/Xrays ORDERING PHYSICIAN: ARAGON,CHRISTOPHER E MACHINE DEICER ELEMENT WINDER PROCEDURE(s): ABPL - CT AB PEL WO CON-NO ORAL OR IV REASON: SOB ORDER NUMBER(s): [id number], ACCESSION NUMBER(s): [id number] CT ABDOMEN AND PELVIS WITHOUT CONTRAST CLINICAL HISTORY: SOB TECHNIQUE: Multiple contiguous axial images of the abdomen and pelvis without intravenous contrast. The images were reformatted degenerate coronal and sagittal reconstructions. All CT scans at this medical facility are performed using dose modulation t echniques as appropriate to a performed exam including the following:Automated exposure control was utilized; adjustment of the MA and/or KV according to patient size; and use of iterative reconstruction technique. Radiation Dose Information: CT Dose: CTDI volume is 32.35 mGy. Dose-length product is 1971.85 mGy*cm Comparison: CT CT AB PEL WO CON-NO ORAL OR IV on DOS: 04/19/24, CT CT AB PEL WO CON-NO ORAL OR IV on DOS: 04/13/24 FINDINGS: Evaluation of the abdomen and pelvis is limited without intravenous contrast. There is stable appearing irregular circumferential wall thickening in the sigmoid colon. The small and large bowel loops demonstrate normal caliber without evidence of bowel obstruction. The stomach grossly appears within normal limits. The liver, gallbladder, pancreas, kidneys, adrenal glands, and spleen appear within normal limits. Is large amount of ascites. There is no free intraperitoneal air. There is stable appearance of the mesentery with fat stranding and soft tissue nodularities along the anterior mesentery. There is stable prominent left iliac chain lymph nodes. The stomach grossly appears unremarkable. The small and large bowel loops demonstrate normal caliber. There are scattered diverticula in the colon without evidence of acute diverticulitis. The abdominal aorta and IVC appear within normal limits. The bladder appears unremarkable for the degree of distention. Pelvic organ appears within normal limits. There is no gross evidence of a pelvic mass. There is free fluid in the pelvis. Lung bases are clear. There is no acute osseous abnormality. IMPRESSION: 1. Stable appearing irregular suspicious for primary colon malignancy. 2. There are stable prominent left iliac chain lymph nodes. There is also stable appearance of the mesentery with fat stranding and soft tissue nodularities. Omental caking/metastasis is not excluded. 3. Large amount of ascites. HS:Y Labs Test 05/05/24 19:42 05/05/24 17:25 05/05/24 17:21 05/05/24 16:05 Range/Units Sodium Level 117 *L 136-145 mmol/L Potassium Level 6.8 *H 3.5-5.1 mmol/L POC Glucose 116 H 70-106 mg/dl Urine Color Yellow Yellow Urine Clarity Turbid H Clear Urine pH 5.0 5.0-9.0 Urine Specific [place] 1.017 1.001-1.035 Urine Protein Trace H Negative Urine Ketones Negative Negative Urine Blood Trace H Negative /uL Urine Nitrite Negative Negative Urine Bilirubin Negative Negative Urine Urobilinogen Normal Negative mg/dL Urine Leukocyte Esterase Trace Negative /uL Urine RBC 3 0 - 3 /hpf Urine Microscopic WBC 13 H 0-3 /HPF Urine Squamous Epithelial Cells Few <5 /hpf Urine Bacteria None seen None Seen /hpf Urine Hyaline Casts Few 0 - 2 /lpf Urine Glucose Normal Normal mg/dL White Blood Count 12.5 H 4.4-10.8 10^3/uL Red Blood Count 5.35 4.5-5.90 10^6/uL Hemoglobin 13.7 13.5-17.5 g/dL Hematocrit 41.8 41.0-53.0 % Mean Corpuscular Volume 78.2 L 80.0-100.0 fL Mean Corpuscular Hemoglobin 25.6 L 28.0-32.0 pg Mean Corpuscular Hemoglobin Concent 32.8 32.0-36.0 g/dL Red Cell Distribution Width 15.1 H 11.8-14.3 % Platelet Count 508 H 140-450 10^3/uL Mean Platelet Volume 7.7 6.9-10.8 fL Neutrophils (%) (Auto) 91.3 H 37.0-80.0 % Lymphocytes (%) (Auto) 2.0 L 10.0-50.0 % Monocytes (%) (Auto) 6.1 0.0-12.0 % Eosinophils (%) (Auto) 0.5 0.0-7.0 % Basophils (%) (Auto) 0.1 0.0-2.0 % Neutrophils # (Auto) 11.4 H 1.6-8.6 10 ^3/uL Lymphocytes # (Auto) 0.3 L 0.4-5.4 10 ^3/uL Monocytes # (Auto) 0.8 0-1.3 10 ^3/uL Eosinophils # (Auto) 0.1 0-0.8 10 ^3/uL Basophils # (Auto) 0 0-0.2 10 ^3/uL Nucleated Red Blood Cells 0.1 % Chloride Level 86 L 98-107 mmol/L Carbon Dioxide Level 16 L 20-31 mmol/L Anion Gap 16 H 5-15 Blood Urea Nitrogen 163 *H 9-23 mg/dL Creatinine 8.81 H 0.700-1.30 mg/dL Glomerular Filtration Rate Calc 7 >90 mL/min BUN/Creatinine Ratio 18.5 10.0-20.0 Serum Glucose 125 H 74-106 mg/dL Lactic Acid Level 1.4 0.4-2.0 mmol/L Calcium Level 8.3 L 8.7-10.4 mg/dL Total Bilirubin 0.3 0.2-1.0 mg/dL Aspartate Amino Transferase (AST) 21 13-40 U/L Alanine Aminotransferase (ALT) 11 7-40 U/L Alkaline Phosphatase 107 46-116 U/L Ammonia 11 11-32 umol/L Total Protein 6.3 5.7-8.2 g/dL Albumin 3.4 3.2-4.8 g/dL Lipase 57 H 12-53 U/L Assessment/Plan Assessment/Plan Assessment Acute renal failure Metastatic disease Electrolyte imbalance Large ascites Plan Admit the patient to [facility] to the hospitalist Nephrology consultation IR consult Hematology/oncology consultation Continue treatment per orders Total critical care time excluding procedures performed this 50 minutes. Plan discussed with: Patient My Orders Orders - SHASHANK MERCEDES AGACNP Procedure Category Date Status Time * Radiologist Consult CONS 05/05/24 Transmitted 19:29 * Hematology/Oncology CONS 05/05/24 Transmitted Consult 19:29 *Dr. [facility] CONS 05/05/24 Transmitted -[place] 19:29 Admit ADMIT 05/05/24 Transmitted 19:34 Renal DIET 05/06/24 Transmitted Standard(2gna,3gk,Lopho) Breakfast Ondansetron Hcl PHA 05/05/24 In Process (Zofran) 19:45 Complete Blood Count LAB 05/06/24 Logged 04:00 Comprehensive LAB 05/06/24 Logged Metabolic Panel 04:00 Condition: Serious [place] 05/05/24 In Process 19:34 Bedrest With Bathroom BR[place]KE 05/05/24 In Process Privileg 19:34 Nitroglycerin PHA 05/05/24 In Process Sublingual (Ntrostat 19:45 Morphine Sulfate PHA 05/05/24 In Process Injection 19:45 Stat Ekg For Chest [place] 05/05/24 In Process Pain 19:34 Notify Of Changes [place] 05/05/24 In Process From Base 19:34 Healthcare Architect For BROOKE 05/05/24 In Process 24 Hours 19:34 Emergency Dysrhythmia [place]KE 05/05/24 In Process Protocol 19:34 Rhythm Strips Once BR[place]KE 05/05/24 In Process Every Shift 19:34 Oxygen By Nasal RT 05/05/24 Transmitted Cannula 19:34 Dextrose 50% Syringe PHA 05/06/24 Transmitted 01:00 Insulin R (Human) PHA 05/06/24 Transmitted (Insulin R) 01:00 Calcium Ivpb PHA 05/06/24 Transmitted 01:00 Sodium Bicarb PHA 05/06/24 Transmitted 50meq/50ml Vial 01:00 Sodium Zirconium PHA 05/06/24 Transmitted Cyclosilicate 01:00 Furosemide Injection PHA 05/06/24 Transmitted (Lasix Injection) 01:00 Abg W/ Co-Ox RT 05/06/24 Logged 00:54 Date of Service: May 05, 2024 Billing Provider: SHASHANK MERCEDES Common Visit Codes: [id number] CARE 30-74 MIN SHASHANK MERCEDES May 06, 2024 01:04
[2024-05-06 01:13] LABS: Base Excess -8.1 mmol/L (-2.0-3.0)
[2024-05-06] MEDS: SODIUM ZIRCONIUM CYCL 10 GM PAK PO ONE ×3 (01:48→12:44)
[2024-05-06] MEDS: SODIUM BICARB 8.4% 50Meq/50ml SYR Vial IV ONE ×2 (01:48→05:39)
[2024-05-06] MEDS: DEXTROSE (50%) 50ML SYRG IV ONE ×2 (01:48→05:39)
[2024-05-06] MEDS: CALCIUM GLUC 1,000mg/50ml-NS 50 ML IV ONE ×2 (01:48→05:39)
[2024-05-06] MEDS: InsuLIN REG 1unit/0.01ml Soln (100units/ml) IV ONE ×2 (01:50→05:41)
[2024-05-06 03:24] LABS: Basophils # (auto) 0 10 ^3/uL (0-0.2); Eosinophils # (auto) 0.1 10 ^3/uL (0-0.8); Hemoglobin 12.8 g/dL (13.5-17.5); Lymphocytes # (auto) 0.4 10 ^3/uL (0.4-5.4); Monocytes # (auto) 1.1 10 ^3/uL (0-1.3); Neutrophils # (auto) 11.2 10 ^3/uL (1.6-8.6)
[2024-05-06 03:26] LABS: Eosinophils % (auto) 0.6 % (0.0-7.0); Hematocrit 38.1 % (41.0-53.0); Lymphocytes % (auto) 3.1 % (10.0-50.0); Mean Corpuscular Hemoglobin 26.4 pg (28.0-32.0); Mean Corpuscular Hgb Conc. 33.7 g/dL (32.0-36.0); Mean Corpuscular Volume 78.5 fL (80.0-100.0); Monocytes % (auto) 8.5 % (0.0-12.0); Neutrophils % (auto) 87.8 % (37.0-80.0); Nucleated Red Blood Cells % 0.1 %; Platelet Count (auto) 448 10^3/uL (140-450); Red Blood Cells 4.85 10^6/uL (4.5-5.90); Red Cell Distribution Width 15.1 % (11.8-14.3); White Blood Cell 12.7 10^3/uL (4.4-10.8)
[2024-05-06 03:40] LABS: Alanine Aminotransferase 10 U/L (7-40); Alkaline Phosphatase 93 U/L (46-116); Anion Gap 14 (5-15); Calcium 9.2 mg/dL (8.7-10.4); Total Protein 6.8 g/dL (5.7-8.2)
[2024-05-06 03:41] LABS: Albumin 3.7 g/dL (3.2-4.8); Aspartate Aminotransferase 22 U/L (13-40)
[2024-05-06 03:42] LABS: Bilirubin, Total 0.3 mg/dL (0.2-1.0)
[2024-05-06 03:49] LABS: BUN/Creatinine Ratio 17.5 (10.0-20.0)
[2024-05-06 03:57] LABS: Carbon Dioxide 17 mmol/L (20-31); Chloride 87 mmol/L (98-107); Glucose 108 mg/dL (74-106)
[2024-05-06 03:58] LABS: Potassium 6.7 mmol/L (3.5-5.1); Sodium 118 mmol/L (136-145)
[2024-05-06 03:59] LABS: Blood Urea Nitrogen 155 mg/dL (9-23)
[2024-05-06] MEDS: SODIUM CHLORIDE 0.9% 1,000 ML IV ONE (04:45)
[2024-05-06] MEDS: ALBUTEROL SULF 2.5 MG/0.5ML(0.5%) NEB SOLN NEB ONE (05:30)
--- NOTE | 2024-05-06 06:52 | DVH ---
EXAM: XR Chest, 1 View CLINICAL INDICATION: sob TECHNIQUE: Frontal view of the chest. COMPARISON: XY CHEST XRAY 1 VIEW on DOS: 04/19/24 FINDINGS: LUNGS AND PLEURAL SPACES: Unremarkable. No consolidation. No pneumothorax. HEART: Unremarkable. No cardiomegaly. MEDIASTINUM: Unremarkable. Normal mediastinal contour. BONES/JOINTS: Unremarkable. No acute fracture. TUBES, LINES AND DEVICES: Right internal jugular central venous catheter tip in the superior vena c dwight. OTHER FINDINGS: . . IMPRESSION: No acute cardiopulmonary process.
[2024-05-06 08:12] LABS: INR 1.08 (0.9-1.15); Partial Thromboplastin Time 29.3 SEC (24.5-34.5); Prothrombin Time 11.4 sec (9.3-11.8)
[2024-05-06] MEDS: SODIUM CHLORIDE 0.9% 1,000 ML IV SCH (08:24)
[2024-05-06 08:28] VITALS: PULSE 103; RESP 13; O2SAT 94
[2024-05-06] MEDS: MORPHINE SULFATE INJ 2 MG/ml SYRG IV PRN (08:34)
--- NOTE | 2024-05-06 09:59 | DVHINCON2 ---
Date of service: May 06, 2024 Referring Physician Gideon Newman, nurse practitioner Reason for Consultation Acute kidney injury History of Present Illness Patient is a 48-year-old male with past medical history significant for metastatic colon cancer he was scheduled for chemotherapy as outpatient he has a port inserted recently patient had 9 L paracentesis he is admitted for generalized weakness and shortness of breath. On admission patient found to have elevated BUN and creatinine nephrology is consulted for acute kidney injury Past Medical History Metastatic colon cancer Past Surgical History Insertion of central port Allergies: Coded Allergies: NO KNOWN ALLERGIES (Unverified , 04/13/24) Home Meds Active Scripts Hydrocodone-Acetaminophen (Hydrocodone Bitartrate/AC 5-325 mg) 1 Tab Tab, 1 TAB PO Q8HP PRN for 5 Days, #15 TAB Prov:ADAM MOMIN GLUE COOK 04/21/24 Furosemide (Lasix) 20 Mg Tb, 1 TAB PO DAILY for 30 Days, #30 TAB 1 Refill Prov:ADAM MOMIN GLUE COOK 04/21/24 Levofloxacin Hemihydrate (LEVAQUIN 500 MG) 500 Mg Tab, 1 TAB PO DAILY for 5 Days, #5 TAB Prov:ADAM MOMIN GLUE COOK 04/21/24 Metronidazole (Flagyl) 500 Mg Tab, 1 TAB PO TID for 5 Days, #15 TAB Prov:ADAM MOMIN GLUE COOK 04/21/24 Current Medications Current Medications Medications (Trade) Dose Ordered Sig/Tamy Route PRN Reason Start Time Stop Time Status Last Admin Ondansetron HCl (Zofran) 4 mg Q4HP PRN IV NAUSEA / VOMITING 05/05/24 19:45 05/06/24 05:21 Nitroglycerin (Ntrostat Sublingual) 0.4 mg Q5MINP PRN SL FOR CHEST PAIN 05/05/24 19:45 Morphine Sulfate 2 mg Q30M PRN IV FOR CHEST PAIN 05/05/24 19:45 05/06/24 08:34 Sodium Chloride 1,000 ml @ 75 mls/hr [id number] IV 05/06/24 04:45 05/06/24 08:24 Sodium Bicarbonate 50 ml/ Sodium Chloride 1,050 ml @ 150 mls/hr Q7H IV 05/06/24 10:00 05/06/24 10:39 Albumin Human 100 ml @ 100 mls/hr Q8H IV 05/06/24 10:00 05/07/24 02:59 05/06/24 11:10 Sevelamer HCl (Renagel) 1,600 mg TIDWM PO 05/06/24 12:00 UNV Lorazepam (Ativan Inj) 0.5 mg Q4HP PRN IV ANXIETY 05/06/24 12:00 UNV Hydrocortisone Sodium Succinate (Solu-CORTEF INJECTION) 50 mg Q8HR IV 05/06/24 12:15 05/07/24 22:01 UNV Family History: Patient reports no known family medical history. H&P Exam Vital Signs/I&O Vital Sign Date Time Temp Pulse Resp B/P (MAP) Pulse Ox O2 Delivery O2 Flow Rate FiO2 05/06/24 12:03 99 05/06/24 09:44 16 115/72 05/06/24 08:28 97.7 94 97.7 05/06/24 08:28 Room Air* 0 21 Intake and Output 05/05/24 05/06/24 19:00 07:00 Output Total 250 ml Balance -250 ml Output Urine Total 200 ml Emesis 50 ml # Voids 1 # Bowel Movements 2 Physical Exam Obese male, awake and alert Lung clear b/l COR; RRR GI; Ascites distended WNL ext: no CCE Neuro no focal Labs/Diagnostic Data Labs/Diagnostic Data Laboratory Tests Test 05/06/24 12:01 05/06/24 07:48 05/06/24 05:25 05/06/24 03:08 Range/Units Prothrombin Time 11.4 9.3-11.8 sec Prothrombin Time INR 1.08 0.9-1.15 Activated Partial Thromboplast Time 29.3 24.5-34.5 SEC Phosphorus Level 13.4 H 2.4-5.1 mg/dL Magnesium Level 4.0 H 1.6-2.6 mg/dL Vitamin D 25-Hydroxy < 4.2 L 30.0-100 ng/mL Parathyroid Hormone (Intact) 254.1 H 18.4-80.1 pg/mL Cortisol AM Sample 71.66 H 5.27-22.45 ug/dL Hepatitis B Surface Antigen Negative Negative Hepatitis C Antibody Negative Negative POC Glucose 119 H 70-106 mg/dl White Blood Count 12.7 H 4.4-10.8 10^3/uL Red Blood Count 4.85 4.5-5.90 10^6/uL Hemoglobin 12.8 L 13.5-17.5 g/dL Hematocrit 38.1 L 41.0-53.0 % Mean Corpuscular Volume 78.5 L 80.0-100.0 fL Mean Corpuscular Hemoglobin 26.4 L 28.0-32.0 pg Mean Corpuscular Hemoglobin Concent 33.7 32.0-36.0 g/dL Red Cell Distribution Width 15.1 H 11.8-14.3 % Platelet Count 448 140-450 10^3/uL Mean Platelet Volume 7.8 6.9-10.8 fL Neutrophils (%) (Auto) 87.8 H 37.0-80.0 % Lymphocytes (%) (Auto) 3.1 L 10.0-50.0 % Monocytes (%) (Auto) 8.5 0.0-12.0 % Eosinophils (%) (Auto) 0.6 0.0-7.0 % Basophils (%) (Auto) 0.0 0.0-2.0 % Neutrophils # (Auto) 11.2 H 1.6-8.6 10 ^3/uL Lymphocytes # (Auto) 0.4 0.4-5.4 10 ^3/uL Monocytes # (Auto) 1.1 0-1.3 10 ^3/uL Eosinophils # (Auto) 0.1 0-0.8 10 ^3/uL Basophils # (Auto) 0 0-0.2 10 ^3/uL Nucleated Red Blood Cells 0.1 % Sodium Level 118 *L 136-145 mmol/L Potassium Level 6.7 *H 3.5-5.1 mmol/L Chloride Level 87 L 98-107 mmol/L Carbon Dioxide Level 17 L 20-31 mmol/L Anion Gap 14 5-15 Blood Urea Nitrogen 155 *H 9-23 mg/dL Creatinine 8.86 H 0.700-1.30 mg/dL Glomerular Filtration Rate Calc 7 >90 mL/min BUN/Creatinine Ratio 17.5 10.0-20.0 Serum Glucose 108 H 74-106 mg/dL Calcium Level 9.2 8.7-10.4 mg/dL Total Bilirubin 0.3 0.2-1.0 mg/dL Aspartate Amino Transferase (AST) 22 13-40 U/L Alanine Aminotransferase (ALT) 10 7-40 U/L Alkaline Phosphatase 93 46-116 U/L Creatine Kinase 81 46-171 U/L B-Type Natriuretic Peptide 36.64 0-100 pg/mL Total Protein 6.8 5.7-8.2 g/dL Albumin 3.7 3.2-4.8 g/dL Test 05/06/24 01:44 05/06/24 01:00 05/05/24 19:42 05/05/24 17:25 Range/Units POC Glucose 122 H 116 H 70-106 mg/dl Blood Gas Specimen Type Arterial Blood Gas Sample Site Left radial Blood Gas Patient Temperature 37.0 Arterial Blood Date Drawn [id number] Arterial Blood pH 7.365 7.350-7.450 Arterial Blood Partial Pressure CO2 28.1 L 35.0-48.0 mmHg Arterial Blood Partial Pressure O2 80.4 L 83.0-108.0 mmHg Arterial Blood HCO3 15.7 L 21.0-28.0 mmol/L Arterial Blood Oxygen Saturation 94.8 94.0-98.0 % Arterial Blood Base Excess -8.1 L -2.0-3.0 mmol/L Arterial Blood Oxyhemoglobin 93.2 L 94.0-98.0 % Arterial Blood Carboxyhemoglobin 1.2 0.5-1.5 % Arterial Blood Methemoglobin 0.5 0.0-1.5 % Gui Test Modified Blood Gas Total Hemoglobin 13.70 13.5-17.5 g/dL Blood Gas Modality Room air FiO2 % 21.0 Sodium Level 117 *L 136-145 mmol/L Potassium Level 6.8 *H 3.5-5.1 mmol/L Test 05/05/24 17:21 05/05/24 16:05 Range/Units Urine Color Yellow Yellow Urine Clarity Turbid H Clear Urine pH 5.0 5.0-9.0 Urine Specific [place] 1.017 1.001-1.035 Urine Protein Trace H Negative Urine Ketones Negative Negative Urine Blood Trace H Negative /uL Urine Nitrite Negative Negative Urine Bilirubin Negative Negative Urine Urobilinogen Normal Negative mg/dL Urine Leukocyte Esterase Trace Negative /uL Urine RBC 3 0 - 3 /hpf Urine Microscopic WBC 13 H 0-3 /HPF Urine Squamous Epithelial Cells Few <5 /hpf Urine Bacteria None seen None Seen /hpf Urine Hyaline Casts Few 0 - 2 /lpf Urine Glucose Normal Normal mg/dL White Blood Count 12.5 H 4.4-10.8 10^3/uL Red Blood Count 5.35 4.5-5.90 10^6/uL Hemoglobin 13.7 13.5-17.5 g/dL Hematocrit 41.8 41.0-53.0 % Mean Corpuscular Volume 78.2 L 80.0-100.0 fL Mean Corpuscular Hemoglobin 25.6 L 28.0-32.0 pg Mean Corpuscular Hemoglobin Concent 32.8 32.0-36.0 g/dL Red Cell Distribution Width 15.1 H 11.8-14.3 % Platelet Count 508 H 140-450 10^3/uL Mean Platelet Volume 7.7 6.9-10.8 fL Neutrophils (%) (Auto) 91.3 H 37.0-80.0 % Lymphocytes (%) (Auto) 2.0 L 10.0-50.0 % Monocytes (%) (Auto) 6.1 0.0-12.0 % Eosinophils (%) (Auto) 0.5 0.0-7.0 % Basophils (%) (Auto) 0.1 0.0-2.0 % Neutrophils # (Auto) 11.4 H 1.6-8.6 10 ^3/uL Lymphocytes # (Auto) 0.3 L 0.4-5.4 10 ^3/uL Monocytes # (Auto) 0.8 0-1.3 10 ^3/uL Eosinophils # (Auto) 0.1 0-0.8 10 ^3/uL Basophils # (Auto) 0 0-0.2 10 ^3/uL Nucleated Red Blood Cells 0.1 % Sodium Level 118 *L 136-145 mmol/L Potassium Level 7.2 *H 3.5-5.1 mmol/L Chloride Level 86 L 98-107 mmol/L Carbon Dioxide Level 16 L 20-31 mmol/L Anion Gap 16 H 5-15 Blood Urea Nitrogen 163 *H 9-23 mg/dL Creatinine 8.81 H 0.700-1.30 mg/dL Glomerular Filtration Rate Calc 7 >90 mL/min BUN/Creatinine Ratio 18.5 10.0-20.0 Serum Glucose 125 H 74-106 mg/dL Lactic Acid Level 1.4 0.4-2.0 mmol/L Calcium Level 8.3 L 8.7-10.4 mg/dL Total Bilirubin 0.3 0.2-1.0 mg/dL Aspartate Amino Transferase (AST) 21 13-40 U/L Alanine Aminotransferase (ALT) 11 7-40 U/L Alkaline Phosphatase 107 46-116 U/L Ammonia 11 11-32 umol/L Total Protein 6.3 5.7-8.2 g/dL Albumin 3.4 3.2-4.8 g/dL Lipase 57 H 12-53 U/L Assessment Acute kidney injury superimposed Chronic Kidney Disease secondary hemodynamic mediated Hyperkalemia Metabolic acidosis Hyponatremia Rule out adrenal insufficiency Malignant ascites Recommendations Closely monitor fluid and electrolytes Avoid nephrotoxic medication Strict I&Os IVF half NS with 50 mEq sodium bicarb at 150 cc/hour Albumin 25% IV piggyback Check urine electrolytes Kidney reported no obstruction on CT scan Emergent medical treatment for hyperkalemia Repeat BMP Paracentesis Check random cortisol HC 50 mg IV q 8 hrs x 6 doses Oncology consult We will continue closely and check for need for HD Patient seen and examined by myself. I discussed my plan of care with the patient, his sister and primary nurse at the bedside I would like to thank Gideon for the consult, will follow Plan discussed with: Patient, Other (nurse, sister) NOELLE GUERRIER MD May 06, 2024 09:59
[2024-05-06] MEDS: SODIUM BICARB 50mEq/50ml Vial 50 ML in SOD CHL 0.45% 1,000 ML IV SCH (10:39)
[2024-05-06] MEDS: ALBUMIN 25% 100 ML IV SCH (11:10)
[2024-05-06 11:23] LABS: Phosphorus 13.4 mg/dL (2.4-5.1)
--- NOTE | 2024-05-06 11:57 | DVHPN2 ---
Subjective The patient is seen and examined at bedside. The patient is very anxious. Complain of severe shortness for breath. Complain of abdominal pain. The patient is supposed to have paracentesis today however radiologist did an ultrasound and then is not enough fluid for paracentesis. Patient was just had another paracentesis last week. Reviewed: Care Plan, H&P, Labs, Medications, Previous Orders, Radiology Changes from previous H/P or p: No Changes Objective Vitals Vital Signs Date Time Temp Pulse Resp B/P (MAP) Pulse Ox O2 Delivery O2 Flow Rate FiO2 05/06/24 09:44 104 16 115/72 05/06/24 08:28 97.7 94 97.7 05/06/24 08:28 Room Air* 0 21 Intake/Output Intake and Output 05/06/24 07:00 Output Total 250 ml Balance -250 ml Output Urine Total 200 ml Emesis 50 ml # Voids 1 # Bowel Movements 2 General Appearance: Alert, Oriented X3, Cooperative, moderate distress HEENT: Atraumatic, PERRLA, EOMI, Mucous membr. moist/pink Neck: Supple Lungs: Clear to auscultation, Normal air movement Cardiovascular: Regular rate, Normal S1, Normal S2, No murmurs, Gallops, Rubs Abdomen: Normal bowel sounds, Soft, No tenderness Neuro: Cranial nerves 3-12 NL Psych/Mental Status: Mental status NL Medications Current Medications Medications Dose Ordered Sig/Tamy Route Start Time Stop Time Status Last Admin Dose Admin Ondansetron HCl 4 mg Q4HP PRN IV 05/05/24 19:45 05/06/24 05:21 4 MG Nitroglycerin 0.4 mg Q5MINP PRN SL 05/05/24 19:45 Morphine Sulfate 2 mg Q30M PRN IV 05/05/24 19:45 05/06/24 08:34 2 MG Sodium Chloride 1,000 ml @ 75 mls/hr [id number] IV 05/06/24 04:45 05/06/24 08:24 75 MLS/HR Sodium Bicarbonate 50 ml/ Sodium Chloride 1,050 ml @ 150 mls/hr Q7H IV 05/06/24 10:00 05/06/24 10:39 150 MLS/HR Albumin Human 100 ml @ 100 mls/hr Q8H IV 05/06/24 10:00 05/07/24 02:59 05/06/24 11:10 100 MLS/HR Sevelamer HCl 1,600 mg TIDWM PO 05/06/24 12:00 UNV Lorazepam 0.5 mg Q4HP PRN IV 05/06/24 12:00 UNV Laboratory Results Laboratory Tests 05/06/24 03:08 Chemistry Test 05/05/24 16:05 05/06/24 03:08 05/06/24 07:48 Albumin 3.4 g/dL (3.2-4.8) 3.7 g/dL (3.2-4.8) Calcium Level 8.3 mg/dL (8.7-10.4) L 9.2 mg/dL (8.7-10.4) Total Protein 6.3 g/dL (5.7-8.2) 6.8 g/dL (5.7-8.2) Magnesium Level 4.0 mg/dL (1.6-2.6) H Phosphorus Level 13.4 mg/dL (2.4-5.1) H Coagulation Test 05/06/24 07:48 Prothrombin Time 11.4 sec (9.3-11.8) Prothrombin Time INR 1.08 (0.9-1.15) Activated Partial Thromboplast Time 29.3 SEC (24.5-34.5) Lipid panel Test 05/05/24 16:05 Lipase 57 U/L (12-53) H Cardiac Markers Test 05/06/24 03:08 B-Type Natriuretic Peptide 36.64 pg/mL (0-100) LFT Test 05/05/24 16:05 05/06/24 03:08 Alanine Aminotransferase (ALT) 11 U/L (7-40) 10 U/L (7-40) Alkaline Phosphatase 107 U/L (46-116) 93 U/L (46-116) Aspartate Amino Transferase (AST) 21 U/L (13-40) 22 U/L (13-40) Total Bilirubin 0.3 mg/dL (0.2-1.0) 0.3 mg/dL (0.2-1.0) Urinalysis Test 05/05/24 17:21 Urine Color Yellow (Yellow) Urine Clarity Turbid (Clear) H Urine pH 5.0 (5.0-9.0) Urine Specific [place] 1.017 (1.001-1.035) Urine Protein Trace (Negative) H Urine Ketones Negative (Negative) Urine Blood Trace /uL (Negative) H Urine Nitrite Negative (Negative) Urine Bilirubin Negative (Negative) Urine Urobilinogen Normal mg/dL (Negative) Urine Leukocyte Esterase Trace /uL (Negative) Urine RBC 3 /hpf (0 - 3) Urine Microscopic WBC 13 /HPF (0-3) H Urine Squamous Epithelial Cells Few /hpf (<5) Urine Bacteria None seen /hpf (None Seen) Urine Hyaline Casts Few /lpf (0 - 2) Urine Glucose Normal mg/dL (Normal) Blood Gas Results Test 05/06/24 01:00 Arterial Blood pH 7.365 (7.350-7.450) FiO2 % 21.0 Labs and/or images reviewed: Labs reviewed by me Assessment/Plan Assessment/Plan Acute renal failure Metastatic colon cancer Electrolyte imbalance , hyperkalemia Ascites, per IR, not enough to drain Continuing current management. Appreciate nephrology input. I will give the patient another lokema to treat for hyperkalemia I will give the patient Ativan 0.4 mg IV q.4 p.r.n. For anxiety The patient does complain about chest pain I will check troponin level, and check EKG, stat ABG. Patient supposed to start chemotherapy with his oncologist, Dr. Robb Saldaña on Friday This medical document was created using an electronic medical record system with [employer] direct computerized dictation system. Although this document has been carefully reviewed, there may still be some phonetic and typographical errors. These areas are purely typographical due to imperfections of the software programs, and do not reflect any compromise in the patient's medical care. Plan discussed with: Patient My Orders Orders - GABRIELE COLIN MD Procedure Category Date Status Time Abg W/ Co-Ox RT 05/06/24 Logged 11:54 Electrocardigram EKG 05/06/24 Logged 11:54 Lorazepam 2mg/Ml Inj PHA 05/06/24 Logged (Ativan Inj) 12:00 Date of Service: May 06, 2024 Billing Provider: GABRIELE COLIN MD Common Visit Codes: [id number] INP/OBS CARE(HIGH) GABRIELE COLIN MD May 06, 2024 11:57
[2024-05-06 12:07] LABS: Hepatitis B Surface Antigen Negative (Negative); Hepatitis C Antibody Negative (Negative)
[2024-05-06 12:23] LABS: Base Excess -7.2 mmol/L (-2.0-3.0)
[2024-05-06 13:01] LABS: Protein, Urine 70.1 mg/dL (1-14)
[2024-05-06 13:04] LABS: Creatinine, Urine 149.05 mg/dL (30.0-125.0); Urine Protein/Creatinine Ratio 0.47
--- NOTE | 2024-05-06 13:33 | ECG ---
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
[2024-05-06] MEDS: HYDROCORTISONE SOD SUCC 100 MG/2ML INJ VIAL IV SCH ×2 (14:05→21:56)
[2024-05-06] MEDS: SEVELAMER 800 MG TAB PO SCH (14:06)
[2024-05-06 19:55] VITALS: PULSE 104; RESP 16; O2SAT 95
[2024-05-06] MEDS: LORazepam 2MG/ML-1ML VIAL IV PRN (21:57)
[2024-05-06 23:03] VITALS: BP 117/81; PULSE 94; RESP 15; RESP 16; TEMP 97.7; O2SAT 94
[2024-05-06 23:05] VITALS: BP 124/75; PULSE 79; RESP 16; TEMP 97.7; O2SAT 94
[2024-05-06] MEDS ORDERED: ZOLP5TAB5 PO (23:21)
[2024-05-06] MEDS ORDERED: METO10TA4 PO (23:21)
[2024-05-06] MEDS ORDERED: PANT40T PO (23:21)
[2024-05-07] VITALS (9 sets, daily range): BP systolic 101–133; BP diastolic 63–74; PULSE 89–120; RESP 12–24; O2SAT 94–100
[2024-05-07 04:45] LABS: Basophils # (auto) 0 10 ^3/uL (0-0.2); Basophils % (auto) 0.1 % (0.0-2.0); Eosinophils # (auto) 0 10 ^3/uL (0-0.8); Eosinophils % (auto) 0.1 % (0.0-7.0); Lymphocytes # (auto) 0.2 10 ^3/uL (0.4-5.4); Lymphocytes % (auto) 2.3 % (10.0-50.0); Monocytes # (auto) 0.3 10 ^3/uL (0-1.3); Neutrophils % (auto) 94.5 % (37.0-80.0)
[2024-05-07 04:46] LABS: Hematocrit 34.5 % (41.0-53.0); Hemoglobin 11.5 g/dL (13.5-17.5); Mean Corpuscular Hemoglobin 26.1 pg (28.0-32.0); Mean Corpuscular Hgb Conc. 33.4 g/dL (32.0-36.0); Mean Corpuscular Volume 78.3 fL (80.0-100.0); Platelet Count (auto) 377 10^3/uL (140-450); Red Blood Cells 4.41 10^6/uL (4.5-5.90); White Blood Cell 10.6 10^3/uL (4.4-10.8)
[2024-05-07 04:59] LABS: Alkaline Phosphatase 81 U/L (46-116); Anion Gap 17 (5-15); Aspartate Aminotransferase 18 U/L (13-40); Calcium 8.8 mg/dL (8.7-10.4); Glucose 97 mg/dL (74-106); Total Protein 6.8 g/dL (5.7-8.2)
[2024-05-07 05:00] LABS: Bilirubin, Total 0.5 mg/dL (0.2-1.0)
[2024-05-07 05:07] LABS: BUN/Creatinine Ratio 17.2 (10.0-20.0)
[2024-05-07 05:22] LABS: Alanine Aminotransferase 9 U/L (7-40); Carbon Dioxide 19 mmol/L (20-31); Chloride 83 mmol/L (98-107); Potassium 6.8 mmol/L (3.5-5.1); Sodium 119 mmol/L (136-145)
[2024-05-07 05:23] LABS: Blood Urea Nitrogen 159 mg/dL (9-23)
[2024-05-07] MEDS: CALCIUM GLUC 1,000mg/50ml-NS 50 ML IV ONE (05:47)
[2024-05-07] MEDS: ALBUTEROL SULF 2.5 MG/0.5ML(0.5%) NEB SOLN NEB ONE (05:50)
[2024-05-07] MEDS: DEXTROSE (50%) 50ML SYRG IV ONE (06:00)
[2024-05-07] MEDS: FUROSEMIDE 40 MG/4 ML VIAL IV ONE (06:01)
[2024-05-07] MEDS: InsuLIN REG 1unit/0.01ml Soln (100units/ml) IV ONE (06:03)
[2024-05-07] MEDS: SODIUM ZIRCONIUM CYCL 10 GM PAK PO ONE (06:03)
--- NOTE | 2024-05-07 06:21 | ECG ---
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
--- NOTE | 2024-05-07 07:28 | DVH ---
EXAM: US Abdomen Limited CLINICAL INDICATION: FLUID CHECK FOR POSSIBLE PARACENTESIS TECHNIQUE: Real-time ultrasound of the abdomen with image documentation. CONTRAST: COMPARISON: US ABDOMEN LIMITED on DOS: 04/20/24 FINDINGS: FREE FLUID: Moderate fluid is noted in all 4 quadrants. OTHER FINDINGS: . IMPRESSION: Moderate fluid is noted in all 4 quadrants.
--- NOTE | 2024-05-07 09:11 | DVH ---
US PARACENTESIS, HISTORY: ASCITES PROCEDURE: Informed consent was obtained. The patient was placed in supine position. A limited locali zation ultrasound of the abdomen was obtained, and the skin site over the largest pocket of fluid was marked and entry site was prepped with chlorhexidine which was allowed to dry and draped in the usua l sterile fashion. Time out was performed. Following administration of 1% lidocaine local anesthetic, a 5 Salv[place] centesis needle catheter was percutaneously inserted into the peritoneal collection until fluid was aspirated. The catheter was advanced into the fluid collection and the needle removed. Abo ut 7600 cc of fluid was aspirated and specimen sent for appropriate cultures/cytology/cultures and cy tology. The catheter was then removed and a sterile dressing applied. No immediate complication was identified. FINDINGS: Limited ultrasound imaging demonstrates moderate ascites. Aspirated fluid was serosanguinou s. IMPRESSION: US-guided paracentesis with 7.6L removed.
[2024-05-07] MEDS: SODIUM CHLORIDE 0.9% 1,000 ML IV ONE (11:45)
[2024-05-07] MEDS: SODIUM CHL 0.9% 1000 ML BAG XX ONE (11:45)
[2024-05-07 11:51] LABS: Body Fluid Red Blood Cells 117667 CUMM (0-2000); Body Fluid White Blood Cells 1291 CUMM (0-200)
--- NOTE | 2024-05-07 12:13 | DVHPN2 ---
Subjective The patient is seen and examined at bedside. Still has shortness of breath. K still high. The patient cannot get anything down. Nausea/and vomiting. Reviewed: Care Plan, H&P, Labs, Medications, Previous Orders, Radiology Changes from previous H/P or p: No Changes Objective Vitals Vital Signs Date Time Temp Pulse Resp B/P (MAP) Pulse Ox O2 Delivery O2 Flow Rate FiO2 05/07/24 09:00 97.6 98 12 109/62 (78) 99 97.6 05/07/24 08:07 Nasal Cannula* 3 32 Intake/Output Intake and Output 05/07/24 07:00 Intake Total 1000 ml Balance 1000 ml Intake IV Total 1000 ml General Appearance: Alert, Oriented X3, Cooperative, moderate distress HEENT: Atraumatic, PERRLA, EOMI, Mucous membr. moist/pink Neck: Supple Lungs: Clear to auscultation, Normal air movement Cardiovascular: Regular rate, Normal S1, Normal S2, No murmurs, Gallops, Rubs Abdomen: Normal bowel sounds, Soft, No tenderness Neuro: Cranial nerves 3-12 NL Psych/Mental Status: Mental status NL Medications Current Medications Medications Dose Ordered Sig/Tamy Route Start Time Stop Time Status Last Admin Dose Admin Ondansetron HCl 4 mg Q4HP PRN IV 05/05/24 19:45 05/07/24 02:12 4 MG Nitroglycerin 0.4 mg Q5MINP PRN SL 05/05/24 19:45 Morphine Sulfate 2 mg Q30M PRN IV 05/05/24 19:45 05/06/24 21:00 2 MG Sodium Bicarbonate 50 ml/ Sodium Chloride 1,050 ml @ 150 mls/hr Q7H IV 05/06/24 10:00 05/07/24 06:51 150 MLS/HR Sevelamer HCl 1,600 mg TIDWM PO 05/06/24 12:00 05/07/24 08:00 1,600 MG Lorazepam 0.5 mg Q4HP PRN IV 05/06/24 12:00 05/07/24 01:54 0.5 MG Hydrocortisone Sodium Succinate 50 mg Q8H IV 05/06/24 22:00 05/08/24 06:01 05/07/24 06:29 50 MG Laboratory Results Laboratory Tests 05/07/24 04:11 05/07/24 09:30 Chemistry Test 05/07/24 04:11 Albumin 4.0 g/dL (3.2-4.8) Calcium Level 8.8 mg/dL (8.7-10.4) Total Protein 6.8 g/dL (5.7-8.2) LFT Test 05/07/24 04:11 Alanine Aminotransferase (ALT) 9 U/L (7-40) Alkaline Phosphatase 81 U/L (46-116) Aspartate Amino Transferase (AST) 18 U/L (13-40) Total Bilirubin 0.5 mg/dL (0.2-1.0) Urinalysis Test 05/05/24 17:21 05/06/24 12:45 Urine Color Yellow (Yellow) Urine Clarity Turbid (Clear) H Urine pH 5.0 (5.0-9.0) Urine Specific [place] 1.017 (1.001-1.035) Urine Protein Trace (Negative) H Urine Ketones Negative (Negative) Urine Blood Trace /uL (Negative) H Urine Nitrite Negative (Negative) Urine Bilirubin Negative (Negative) Urine Urobilinogen Normal mg/dL (Negative) Urine Leukocyte Esterase Trace /uL (Negative) Urine RBC 3 /hpf (0 - 3) Urine Microscopic WBC 13 /HPF (0-3) H Urine Squamous Epithelial Cells Few /hpf (<5) Urine Bacteria None seen /hpf (None Seen) Urine Hyaline Casts Few /lpf (0 - 2) Urine Glucose Normal mg/dL (Normal) Urine Creatinine 149.05 mg/dL (30.0-125.0) H Urine Protein/Creatinine Ratio 0.47 Urine Sodium < 10 mmol/L (40-220) L Urine Total Protein 70.1 mg/dL (1-14) H Blood Gas Results Test 05/06/24 12:19 Arterial Blood pH 7.383 (7.350-7.450) FiO2 % 21.0 Labs and/or images reviewed: Labs reviewed by me Assessment/Plan Assessment/Plan Acute renal failure Metastatic colon cancer Electrolyte imbalance , hyperkalemia Ascites Continuing current management. Appreciate nephrology input. Continue to give lokema to treat for hyperkalemia Continue Ativan 0.4 mg IV q.4 p.r.n. for anxiety Will start clinimix for nutrient support Continue zofran PRN for nausea/vomiting DW patient and at bedside. Patient supposed to start chemotherapy evaluation with his oncologist, Dr. Robb Saldaña on Friday now. This medical document was created using an electronic medical record system with [employer] computerized dictation system. Although this document has been carefully reviewed, there may still be some phonetic and typographical errors. These areas are purely typographical due to imperfections of the software programs, and do not reflect any compromise in the patient's medical care. Plan discussed with: Patient, Spouse My Orders Orders - GABRIELE COLIN MD Procedure Category Date Status Time Mrsa Screen CHUNG 05/06/24 In Process 23:17 Paracentesis US 05/07/24 Resulted 08:17 Date of Service: May 07, 2024 Billing Provider: GABRIELE COLIN MD Common Visit Codes: [id number] INP/OBS CARE(HIGH) GABRIELE COLIN MD May 07, 2024 12:13
[2024-05-07 12:26] LABS: Body Fluid Polymorphonuclear 39 % (0-25)
[2024-05-07] MEDS: LORazepam 2MG/ML-1ML VIAL ONE (13:00)
--- NOTE | 2024-05-07 13:09 | DVHPN2 ---
Progress Note - Dictate Date Seen: May 07, 2024 Medical Necessity Reason Pt with a Central, PICC or Fol: Yes The following are medically ne: Alvarez Catheter Subjective Unresponsive. Patient's significant other at bedside. vital signs Vital Sign Date Time Temp Pulse Resp B/P (MAP) Pulse Ox O2 Delivery O2 Flow Rate FiO2 05/07/24 12:00 91 05/07/24 09:00 97.6 12 109/62 (78) 99 97.6 05/07/24 08:07 Nasal Cannula* 3 32 Total Intake and Output 05/06/24 05/06/24 05/07/24 15:00 23:00 07:00 Intake Total 100 ml 900 ml Balance 100 ml 900 ml medications Current Medications Medications Dose Ordered Sig/Tamy Route Start Time Stop Time Status Last Admin Dose Admin Ondansetron HCl 4 mg Q4HP PRN IV 05/05/24 19:45 05/07/24 02:12 4 MG Nitroglycerin 0.4 mg Q5MINP PRN SL 05/05/24 19:45 Morphine Sulfate 2 mg Q30M PRN IV 05/05/24 19:45 05/06/24 21:00 2 MG Sodium Bicarbonate 50 ml/ Sodium Chloride 1,050 ml @ 150 mls/hr Q7H IV 05/06/24 10:00 05/07/24 06:51 150 MLS/HR Sevelamer HCl 1,600 mg TIDWM PO 05/06/24 12:00 05/07/24 08:00 1,600 MG Lorazepam 0.5 mg Q4HP PRN IV 05/06/24 12:00 05/07/24 01:54 0.5 MG Hydrocortisone Sodium Succinate 50 mg Q8H IV 05/06/24 22:00 05/08/24 06:01 05/07/24 06:29 50 MG objective Gen: Somnolent, ill-appearing heent: nc/at lungs: Occasional rhonchi cvs: no rub abd: soft, bowel sounds audible ext: Trace skin: no rash neuro: Encephalopathic laboratory and microbiology Laboratory Tests 05/07/24 09:30 05/07/24 04:11 Test 05/07/24 04:11 Range/Units Serum Glucose 97 74-106 mg/dL Assessment/Plan Acute kidney injury prerenal etiology, low FeNa Hyperkalemia Metabolic acidosis Hyponatremia Rule out adrenal insufficiency Malignant ascites Stage IV Colon Ca Recommendations - dialysis for solute removal - discussed plan of care from Nephrology perspective with patient's significant other at bedside. - discussed plan of care with patient's RN. Plan discussed with: Other WILLIAM MONTANO MD May 07, 2024 13:09
[2024-05-07] MEDS: MORPHINE SULFATE INJ 2 MG/ml SYRG IV ONE (13:48)
--- NOTE | 2024-05-07 14:42 | DVH ---
EXAM: XY CHEST XRAY 1 VIEW TECHNIQUE: Single frontal chest radiograph CLINICAL HISTORY: dialysis catheter COMPARISON: XY CHEST XRAY 1 VIEW on DOS: 05/06/24, XY CHEST XRAY 1 VIEW on DOS: 04/19/24 Findings/Impression: Frontal chest radiograph demonstrates no acute osseous or superficial soft tissue abnormalities. Right chest wall port and left-sided IJ catheter terminates near the superior cavoatrial junction. The trachea is midline. The cardiac silhouette and mediastinum are within normal limits. Low lung volumes with bronchovascular crowding. Bibasilar atelectasis. No pneumothorax, pleural effusions, or consolidations.
--- NOTE | 2024-05-07 15:51 | DVHNC2 ---
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) Indication: Other (Hemodialysis) Room prepared for procedure: Yes Medical Office Professional Instructor performed hand hygien: Yes Maximal sterile barrier precau: Mask/Eye shield, Sterile gown, Cap, Sterlie gloves, Large sterlie drape Skin Preparation: Chlorhexidine gluconate Skin preparation completely dr: Yes Insertion site: Left, Internal jugular Central line catheter type: Dialysis non-tunneled Number of lumens: 2 Central line exchanged over a: No Antiseptic ointment applied to: No Post Assessment: Chest X-Ray, Proper placement, No Pneumothorax Informed consent obtained: Yes Risks/benefits/alt described: Yes Notes EBL: 5 ml Ultrasound CPT code: 90600 Date of Service: May 07, 2024 Billing Provider: ADAM MOMIN NP Common Visit Codes: PROCEDURE ONLY Procedure Codes: [id number] NON-TUNNEL CV CATH ADAM MOMIN NP May 07, 2024 15:51
[2024-05-07] MEDS: SODIUM BICARB 8.4% 50Meq/50ml SYR Vial IV ONE (21:30)
[2024-05-07] MEDS: HYDROcodone-ACET 5/325MG TAB PO PRN (23:15)
[2024-05-07 23:26] LABS: Basophils # (auto) 0 10 ^3/uL (0-0.2); Basophils % (auto) 0.1 % (0.0-2.0); Eosinophils # (auto) 0.1 10 ^3/uL (0-0.8); Neutrophils # (auto) 13.9 10 ^3/uL (1.6-8.6); Neutrophils % (auto) 91.5 % (37.0-80.0); White Blood Cell 15.2 10^3/uL (4.4-10.8)
[2024-05-07 23:28] LABS: Eosinophils % (auto) 0.7 % (0.0-7.0); Hematocrit 38.6 % (41.0-53.0); Lymphocytes # (auto) 0.2 10 ^3/uL (0.4-5.4); Lymphocytes % (auto) 1.3 % (10.0-50.0); Mean Corpuscular Hemoglobin 26.4 pg (28.0-32.0); Mean Corpuscular Hgb Conc. 33.7 g/dL (32.0-36.0); Mean Corpuscular Volume 78.4 fL (80.0-100.0); Monocytes % (auto) 6.4 % (0.0-12.0); Platelet Count (auto) 374 10^3/uL (140-450); Red Blood Cells 4.92 10^6/uL (4.5-5.90); Red Cell Distribution Width 15.2 % (11.8-14.3)
[2024-05-07 23:51] LABS: Potassium 4.9 mmol/L (3.5-5.1)
[2024-05-07 23:52] LABS: Anion Gap 12 (5-15); Calcium 8.8 mg/dL (8.7-10.4); Carbon Dioxide 24 mmol/L (20-31)
[2024-05-07 23:57] LABS: BUN/Creatinine Ratio 15.2 (10.0-20.0); Glucose 83 mg/dL (74-106)
[2024-05-08] VITALS (74 sets, daily range): BP systolic 90–122; BP diastolic 57–82; PULSE 104–123; RESP 9–24; TEMP 97.6–98.4; O2SAT 92–100
[2024-05-08 00:02] LABS: Chloride 92 mmol/L (98-107); Sodium 128 mmol/L (136-145)
[2024-05-08 00:06] LABS: Blood Urea Nitrogen 95 mg/dL (9-23)
[2024-05-08] MEDS: SODIUM BICARB 8.4% 50Meq/50ml SYR Vial IV ONE (04:55)
[2024-05-08] MEDS: HYDROCORTISONE SOD SUCC 100 MG/2ML INJ VIAL IV SCH (05:41)
[2024-05-08 08:38] LABS: Alanine Aminotransferase 12 U/L (7-40); Albumin 3.4 g/dL (3.2-4.8); Alkaline Phosphatase 80 U/L (46-116); Anion Gap 13 (5-15); BUN/Creatinine Ratio 14.8 (10.0-20.0); Carbon Dioxide 24 mmol/L (20-31); Glucose 100 mg/dL (74-106)
[2024-05-08 08:39] LABS: Aspartate Aminotransferase 22 U/L (13-40); Bilirubin, Total 0.5 mg/dL (0.2-1.0)
[2024-05-08 08:51] LABS: Calcium 8.4 mg/dL (8.7-10.4); Chloride 90 mmol/L (98-107); Potassium 5.4 mmol/L (3.5-5.1); Sodium 127 mmol/L (136-145)
[2024-05-08 08:52] LABS: Blood Urea Nitrogen 100 mg/dL (9-23)
[2024-05-08] MEDS ORDERED: ALBUMIN 25% 100 ML IV PRN (13:15)
[2024-05-08] MEDS: ALBUMIN 25% 100 ML IV PRN (13:39)
--- NOTE | 2024-05-08 15:27 | DVHPN2 ---
Subjective The patient is seen and examined at bedside. Still complain of abdominal pain and distended. Reviewed: Care Plan, H&P, Labs, Medications, Previous Orders, Radiology Changes from previous H/P or p: No Changes Objective Vitals Vital Signs Date Time Temp Pulse Resp B/P (MAP) Pulse Ox O2 Delivery O2 Flow Rate FiO2 05/08/24 14:00 106 13 122/71 (88) 100 05/08/24 12:00 98.4 98.4 05/08/24 07:41 Nasal Cannula* 2 28 Intake/Output Intake and Output 05/08/24 06:59 Intake Total 3800 ml Output Total 300 ml Balance 3500 ml Intake Oral 500 ml IV Total 3300 ml Output Urine Total 200 ml Emesis 100 ml # Voids 5 General Appearance: Alert, Oriented X3, Cooperative, moderate distress HEENT: Atraumatic, PERRLA, EOMI, Mucous membr. moist/pink Neck: Supple Lungs: Clear to auscultation, Normal air movement Cardiovascular: Regular rate, Normal S1, Normal S2, No murmurs, Gallops, Rubs Abdomen: Normal bowel sounds, Soft, No tenderness Neuro: Cranial nerves 3-12 NL Psych/Mental Status: Mental status NL Medications Current Medications Medications Dose Ordered Sig/Tamy Route Start Time Stop Time Status Last Admin Dose Admin Ondansetron HCl 4 mg Q4HP PRN IV 05/05/24 19:45 05/08/24 11:51 4 MG Nitroglycerin 0.4 mg Q5MINP PRN SL 05/05/24 19:45 Morphine Sulfate 2 mg Q30M PRN IV 05/05/24 19:45 05/06/24 21:00 2 MG Sodium Bicarbonate 50 ml/ Sodium Chloride 1,050 ml @ 150 mls/hr Q7H IV 05/06/24 10:00 05/08/24 05:58 150 MLS/HR Sevelamer HCl 1,600 mg TIDWM PO 05/06/24 12:00 05/07/24 08:00 1,600 MG Lorazepam 0.5 mg Q4HP PRN IV 05/06/24 12:00 05/07/24 01:54 0.5 MG Acetaminophen/ Hydrocodone Bitart 1 tab Q6HPRN PRN PO 05/07/24 22:45 05/08/24 05:41 1 TAB Albumin Human 100 ml @ 100 mls/hr PRN PRN IV 05/08/24 13:15 05/08/24 23:59 05/08/24 13:41 100 MLS/HR Laboratory Results Laboratory Tests 05/07/24 23:15 05/08/24 07:45 Chemistry Test 05/07/24 23:15 05/08/24 07:45 Calcium Level 8.8 mg/dL (8.7-10.4) 8.4 mg/dL (8.7-10.4) L Albumin 3.4 g/dL (3.2-4.8) Total Protein 6.0 g/dL (5.7-8.2) LFT Test 05/08/24 07:45 Alanine Aminotransferase (ALT) 12 U/L (7-40) Alkaline Phosphatase 80 U/L (46-116) Aspartate Amino Transferase (AST) 22 U/L (13-40) Total Bilirubin 0.5 mg/dL (0.2-1.0) Urinalysis Test 05/05/24 17:21 05/06/24 12:45 Urine Color Yellow (Yellow) Urine Clarity Turbid (Clear) H Urine pH 5.0 (5.0-9.0) Urine Specific [place] 1.017 (1.001-1.035) Urine Protein Trace (Negative) H Urine Ketones Negative (Negative) Urine Blood Trace /uL (Negative) H Urine Nitrite Negative (Negative) Urine Bilirubin Negative (Negative) Urine Urobilinogen Normal mg/dL (Negative) Urine Leukocyte Esterase Trace /uL (Negative) Urine RBC 3 /hpf (0 - 3) Urine Microscopic WBC 13 /HPF (0-3) H Urine Squamous Epithelial Cells Few /hpf (<5) Urine Bacteria None seen /hpf (None Seen) Urine Hyaline Casts Few /lpf (0 - 2) Urine Glucose Normal mg/dL (Normal) Urine Creatinine 149.05 mg/dL (30.0-125.0) H Urine Protein/Creatinine Ratio 0.47 Urine Sodium < 10 mmol/L (40-220) L Urine Total Protein 70.1 mg/dL (1-14) H Microbiology Microbiology Date/Time Source Procedure Growth Status 05/07/24 09:00 Ascities Fluid Gram Stain Pending Resulted 05/07/24 09:00 Ascities Fluid Body Fluid Culture - Preliminary Resulted 05/06/24 23:17 Nose MRSA Screen - Final Complete Labs and/or images reviewed: Labs reviewed by me Assessment/Plan Assessment/Plan Acute renal failure Metastatic colon cancer Electrolyte imbalance , hyperkalemia Ascites Continuing current management. Appreciate nephrology input. Continue to give lokema to treat for hyperkalemia Continue Ativan 0.4 mg IV q.4 p.r.n. for anxiety Will start clinimix for nutrient support Continue zofran PRN for nausea/vomiting We will consulted worsted winder for paracentesis. We will repeat ultrasound abdomen today. DW patient and at bedside. Patient supposed to start chemotherapy evaluation with his oncologist, Dr. Robb Saldaña on Friday now. This medical document was created using an electronic medical record system with [employer] dictation system. Although this document has been carefully reviewed, there may still be some phonetic and typographical errors. These areas are purely typographical due to imperfections of the software programs, and do not reflect any compromise in the patient's medical care. This medical document was created using an electronic medical record system with [employer] dictation system. Although this document has been carefully reviewed, there may still be some phonetic and typographical errors. These areas are purely typographical due to imperfections of the software programs, and do not reflect any compromise in the patient's medical care. Plan discussed with: Patient, Spouse My Orders Orders - GABRIELE COLIN MD Procedure Category Date Status Time Abg W/ Co-Ox RT 05/08/24 Logged 12:24 Complete Blood Count LAB 05/09/24 Verified 04:00 Comprehensive LAB 05/09/24 Verified Metabolic Panel 04:00 Magnesium LAB 05/09/24 Verified 04:00 Phosphorus LAB 05/09/24 Verified 04:00 Date of Service: May 08, 2024 Billing Provider: GABRIELE COLIN MD Common Visit Codes: [id number] INP/OBS CARE(HIGH) GABRIELE COLIN MD May 08, 2024 15:27
--- NOTE | 2024-05-08 16:06 | DVHPN2 ---
Progress Note - Dictate Date Seen: May 08, 2024 Medical Necessity Reason Pt with a Central, PICC or Fol: Yes The following are medically ne: Alvarez Catheter Subjective Patient more responsive, he is seen on dialysis, patient's brother is at bedside. vital signs Vital Sign Date Time Temp Pulse Resp B/P (MAP) Pulse Ox O2 Delivery O2 Flow Rate FiO2 05/08/24 14:00 106 13 122/71 (88) 100 05/08/24 12:00 98.4 98.4 05/08/24 07:41 Nasal Cannula* 2 28 Total Intake and Output 05/07/24 05/07/24 05/08/24 15:00 23:00 07:00 Intake Total 1200 ml 1200 ml 1550 ml Output Total 300 ml Balance 1200 ml 1200 ml 1250 ml medications Current Medications Medications Dose Ordered Sig/Tamy Route Start Time Stop Time Status Last Admin Dose Admin Ondansetron HCl 4 mg Q4HP PRN IV 05/05/24 19:45 05/08/24 11:51 4 MG Nitroglycerin 0.4 mg Q5MINP PRN SL 05/05/24 19:45 Morphine Sulfate 2 mg Q30M PRN IV 05/05/24 19:45 05/06/24 21:00 2 MG Sodium Bicarbonate 50 ml/ Sodium Chloride 1,050 ml @ 150 mls/hr Q7H IV 05/06/24 10:00 05/08/24 05:58 150 MLS/HR Sevelamer HCl 1,600 mg TIDWM PO 05/06/24 12:00 05/07/24 08:00 1,600 MG Lorazepam 0.5 mg Q4HP PRN IV 05/06/24 12:00 05/07/24 01:54 0.5 MG Acetaminophen/ Hydrocodone Bitart 1 tab Q6HPRN PRN PO 05/07/24 22:45 05/08/24 15:48 1 TAB Albumin Human 100 ml @ 100 mls/hr PRN PRN IV 05/08/24 13:15 05/08/24 23:59 05/08/24 13:41 100 MLS/HR Morphine Sulfate 2 mg Q4HPRN PRN IV 05/08/24 16:00 UNV Ceftriaxone Sodium 50 ml @ 100 mls/hr DAILY@09 IV 05/09/24 09:00 UNV objective Gen: Awake and alert heent: nc/at lungs: Occasional rhonchi cvs: no rub abd: soft, bowel sounds audible ext: Trace skin: no rash neuro: Mental status improved laboratory and microbiology Laboratory Tests 05/08/24 07:45 05/07/24 23:15 Test 05/08/24 07:45 Range/Units Serum Glucose 100 74-106 mg/dL Assessment/Plan Acute kidney injury prerenal etiology, low FeNa Hyperkalemia Metabolic acidosis Hyponatremia Rule out adrenal insufficiency Malignant ascites Stage IV Colon Ca Recommendations - we will hold UF - we will discontinue IV fluids and reassess - discussed plan of care from Nephrology perspective with patient and his brother. Plan discussed with: Other WILLIAM MONTANO MD May 08, 2024 16:06
[2024-05-08] MEDS ORDERED: CLINIMIX PER PHARMACY 0 ML IV SCH (16:15)
[2024-05-08] MEDS: ACCU-CHEK COMFORT CURVE STRIP VI SCH (17:23)
[2024-05-08] MEDS: InsuLIN REG 1unit/0.01ml Soln (100units/ml) SC SCH (17:23)
[2024-05-08 18:18] LABS: Magnesium 3.1 mg/dL (1.6-2.6); Phosphorus 10.1 mg/dL (2.4-5.1)
[2024-05-08] MEDS ORDERED: DEXTROSE 10% 1,000 ML IV SCH (19:00)
[2024-05-08] MEDS: DEXTROSE (50%) 50ML SYRG IV SCH (19:02)
[2024-05-08] MEDS: HEPARIN SODIUM (PORCINE) 5000 UNITS/ML 1ML VIAL SC SCH (21:23)
[2024-05-08] MEDS: AMINO ACID INFUSION IN D10W 2,000 ML IV SCH (21:24)
[2024-05-08] MEDS: LOPERAMIDE HCL 2 MG CAP/TAB PO PRN (22:39)
[2024-05-09] VITALS (27 sets, daily range): BP systolic 102–131; BP diastolic 65–80; PULSE 108–123; RESP 9–24; TEMP 98–99.5; O2SAT 90–98
--- NOTE | 2024-05-09 00:29 | DVH ---
INDICATION: ascites TECHNIQUE: Multiple real-time sonographic images were obtained of the right upper quadrant. COMPARISON: US ABDOMEN LIMITED on DOS: 05/07/24, US ABDOMEN LIMITED on DOS: 04/20/24 FINDINGS / IMPRESSION: Small amount of ascites is present in all 4 quadrants, decreased compared to the prior ultrasound néstor dy from 05/07/2024.
[2024-05-09] MEDS: MORPHINE SULFATE INJ 2 MG/ml SYRG IV PRN (00:32)
[2024-05-09 02:31] LABS: Urine Bacteria FEW /hpf (None Seen); Urine Blood 3+ /uL (Negative); Urine Budding Yeast LOADED /hpf (None Seen); Urine Clarity Ex.Turbid (Clear); Urine Color Yellow (Yellow); Urine Hyaline Cast MANY /lpf (0 - 2); Urine Protein, UAD 1+ (Negative); Urine Specific Gravity 1.017 (1.001-1.035); Urine Squamous Epithelial Cell None Seen /hpf (<5); Urine Urobilinogen Normal (Negative); Urine WBC 128 /HPF (0-3); Urine WBC Clumps PRESENT /hpf (None Seen)
[2024-05-09 05:35] LABS: Basophils # (auto) 0 10 ^3/uL (0-0.2); Hemoglobin 11.4 g/dL (13.5-17.5); Lymphocytes # (auto) 0.4 10 ^3/uL (0.4-5.4); Monocytes % (auto) 8.8 % (0.0-12.0); Red Cell Distribution Width 15.3 % (11.8-14.3)
[2024-05-09 05:37] LABS: Basophils % (auto) 0.2 % (0.0-2.0); Eosinophils # (auto) 0.1 10 ^3/uL (0-0.8); Eosinophils % (auto) 1.3 % (0.0-7.0); Lymphocytes % (auto) 3.8 % (10.0-50.0); Mean Corpuscular Hemoglobin 25.8 pg (28.0-32.0); Mean Corpuscular Hgb Conc. 32.7 g/dL (32.0-36.0); Mean Corpuscular Volume 79.1 fL (80.0-100.0); Neutrophils # (auto) 9.6 10 ^3/uL (1.6-8.6); Neutrophils % (auto) 85.9 % (37.0-80.0); Nucleated Red Blood Cells % 0.1 %; Platelet Count (auto) 302 10^3/uL (140-450); Red Blood Cells 4.43 10^6/uL (4.5-5.90); White Blood Cell 11.2 10^3/uL (4.4-10.8)
[2024-05-09 05:47] LABS: Alanine Aminotransferase 12 U/L (7-40); Albumin 3.6 g/dL (3.2-4.8); Alkaline Phosphatase 70 U/L (46-116); Anion Gap 10 (5-15); Aspartate Aminotransferase 22 U/L (13-40); BUN/Creatinine Ratio 12.4 (10.0-20.0); Bilirubin, Total 0.5 mg/dL (0.2-1.0); Calcium 8.8 mg/dL (8.7-10.4); Carbon Dioxide 26 mmol/L (20-31); Glucose 93 mg/dL (74-106); Potassium 4.5 mmol/L (3.5-5.1)
[2024-05-09 05:49] LABS: Blood Urea Nitrogen 66 mg/dL (9-23); Chloride 94 mmol/L (98-107); Magnesium 2.8 mg/dL (1.6-2.6); Phosphorus 7.7 mg/dL (2.4-5.1); Sodium 130 mmol/L (136-145)
[2024-05-09] MEDS: cefTRIAXone 1GM/50ML D5W 50 ML IV SCH (07:37)
[2024-05-09] MEDS: PANTOPRAZOLE 40 MG/10 ML VIAL INJ IV SCH (07:37)
--- NOTE | 2024-05-09 10:14 | DVHPN2 ---
Progress Note - Dictate Date Seen: May 09, 2024 Medical Necessity Reason Pt with a Central, PICC or Fol: Yes The following are medically ne: Alvarez Catheter Subjective Resting comfortably, seen in [place] vital signs Vital Sign Date Time Temp Pulse Resp B/P (MAP) Pulse Ox O2 Delivery O2 Flow Rate FiO2 05/09/24 10:00 119 22 111/73 (86) 98 05/09/24 08:00 98.2 98.2 05/09/24 08:00 Nasal Cannula* 2 28 Total Intake and Output 05/08/24 05/08/24 05/09/24 15:00 23:00 07:00 Intake Total 1400 ml 400 ml 200 ml Output Total 200 ml 50 ml Balance 1400 ml 200 ml 150 ml medications Current Medications Medications Dose Ordered Sig/Tamy Route Start Time Stop Time Status Last Admin Dose Admin Ondansetron HCl 4 mg Q4HP PRN IV 05/05/24 19:45 05/09/24 07:38 4 MG Nitroglycerin 0.4 mg Q5MINP PRN SL 05/05/24 19:45 Morphine Sulfate 2 mg Q30M PRN IV 05/05/24 19:45 05/06/24 21:00 2 MG Sevelamer HCl 1,600 mg TIDWM PO 05/06/24 12:00 05/09/24 07:37 1,600 MG Lorazepam 0.5 mg Q4HP PRN IV 05/06/24 12:00 05/07/24 01:54 0.5 MG Acetaminophen/ Hydrocodone Bitart 1 tab Q6HPRN PRN PO 05/07/24 22:45 05/08/24 15:48 1 TAB Morphine Sulfate 2 mg Q4HPRN PRN IV 05/08/24 16:00 05/09/24 07:38 2 MG Ceftriaxone Sodium 50 ml @ 100 mls/hr DAILY@09 IV 05/09/24 09:00 05/09/24 07:37 100 MLS/HR Amino Acids 0 ml @ 0 mls/hr PER PHARMACY IV 05/08/24 16:15 Heparin Sodium (Porcine) 5,000 units Q12HR SC 05/08/24 22:00 05/09/24 07:37 5,000 UNITS Loperamide HCl 2 mg PRN PRN PO 05/08/24 16:15 05/08/24 22:39 2 MG Pantoprazole Sodium 40 mg DAILY IV 05/09/24 10:00 05/09/24 07:37 40 MG Diagnostic Test (Pha) 1 strip Q6HR 05/08/24 18:00 05/09/24 08:39 1 STRIP Insulin Human Regular FOLLOW SLIDING SCALE Q6HR SC 05/08/24 18:00 Dextrose 50 ml UD IV 05/08/24 16:45 Amino Acids/ Electrolytes/ Dextrose 2,000 ml @ 41 mls/hr DAILY@2200 IV 05/08/24 22:00 Dextrose 1,000 ml @ 25 mls/hr Q24H IV 05/08/24 19:00 UNV objective Gen: Awake and alert heent: nc/at lungs: Occasional rhonchi cvs: no rub abd: soft, bowel sounds audible ext: Trace skin: no rash neuro: Mental status improved laboratory and microbiology Laboratory Tests 05/09/24 05:20 Test 05/09/24 05:20 Range/Units Serum Glucose 93 74-106 mg/dL Assessment/Plan Acute kidney injury prerenal etiology, low FeNa Hyperkalemia Metabolic acidosis Hyponatremia Rule out adrenal insufficiency Malignant ascites Stage IV Colon Ca Recommendations - dialysis again May 10 - no heparin - even to positive fluid balance Plan discussed with: Other WILLIAM MONTANO MD May 09, 2024 10:14
--- NOTE | 2024-05-09 12:33 | DVHINCON2 ---
Date of service: May 08, 2024 Referring Physician jose manuel momin Reason for Consultation acute resp failure History of Present Illness HPI 48 yo male h/o colorectal cancer with recurrent ascites. Pt known to us from previous admissions. Came in for worsening shortness of breath and abdominal distention. admitted to [facility]. Noted to have increasing BUN/Cr, minimal urine output Home Meds Active Scripts Hydrocodone-Acetaminophen (Hydrocodone Bitartrate/AC 5-325 mg) 1 Tab Tab, 1 TAB PO Q8HP PRN for 5 Days, #15 TAB Prov:ADAM MOMIN CUSTOMER SOLUTIONS ARCHITECT 04/21/24 Furosemide (Lasix) 20 Mg Tb, 1 TAB PO DAILY for 30 Days, #30 TAB 1 Refill Prov:ADAM MOMIN CUSTOMER SOLUTIONS ARCHITECT 04/21/24 Levofloxacin Hemihydrate (LEVAQUIN 500 MG) 500 Mg Tab, 1 TAB PO DAILY for 5 Days, #5 TAB Prov:ADAM MOMIN CUSTOMER SOLUTIONS ARCHITECT 04/21/24 Metronidazole (Flagyl) 500 Mg Tab, 1 TAB PO TID for 5 Days, #15 TAB Prov:ADAM MOMIN CUSTOMER SOLUTIONS ARCHITECT 04/21/24 Reported Medications Pantoprazole Sodium Sesquihydr (Pantoprazole Sodium) 40 Mg Tab, 40 MG PO, TAB 05/06/24 Zolpidem Tartrate (Zolpidem Tartrate) 5 Mg Tab, 5 MG PO for FOR SLEEP, TAB 05/06/24 Metoclopramide HCl (Metoclopramide Hydrochlor) 10 Mg Tab, 10 MG PO, TAB 05/06/24 Past Medical History Patient Family History: Diabetes mellitus G8 MOTHER Hypertension G8 MOTHER H&P Exam Vital Signs Vital Signs Date Time Temp Pulse Resp B/P (MAP) Pulse Ox O2 Delivery O2 Flow Rate FiO2 05/09/24 12:00 99.3 118 12 103/72 (82) 97 99.3 05/09/24 08:00 Nasal Cannula* 2 28 Labs/Xrays Labs Test 05/09/24 11:16 05/09/24 05:20 05/09/24 01:20 05/08/24 17:51 Range/Units POC Glucose 189 H 70-106 mg/dl White Blood Count 11.2 #H 4.4-10.8 10^3/uL Red Blood Count 4.43 L 4.5-5.90 10^6/uL Hemoglobin 11.4 L 13.5-17.5 g/dL Hematocrit 35.0 L 41.0-53.0 % Mean Corpuscular Volume 79.1 L 80.0-100.0 fL Mean Corpuscular Hemoglobin 25.8 L 28.0-32.0 pg Mean Corpuscular Hemoglobin Concent 32.7 32.0-36.0 g/dL Red Cell Distribution Width 15.3 H 11.8-14.3 % Platelet Count 302 140-450 10^3/uL Mean Platelet Volume 7.7 6.9-10.8 fL Neutrophils (%) (Auto) 85.9 H 37.0-80.0 % Lymphocytes (%) (Auto) 3.8 L 10.0-50.0 % Monocytes (%) (Auto) 8.8 0.0-12.0 % Eosinophils (%) (Auto) 1.3 0.0-7.0 % Basophils (%) (Auto) 0.2 0.0-2.0 % Neutrophils # (Auto) 9.6 H 1.6-8.6 10 ^3/uL Lymphocytes # (Auto) 0.4 0.4-5.4 10 ^3/uL Monocytes # (Auto) 1.0 0-1.3 10 ^3/uL Eosinophils # (Auto) 0.1 0-0.8 10 ^3/uL Basophils # (Auto) 0 0-0.2 10 ^3/uL Nucleated Red Blood Cells 0.1 % Sodium Level 130 L 136-145 mmol/L Potassium Level 4.5 3.5-5.1 mmol/L Chloride Level 94 L 98-107 mmol/L Carbon Dioxide Level 26 20-31 mmol/L Anion Gap 10 5-15 Blood Urea Nitrogen 66 #H 9-23 mg/dL Creatinine 5.34 H 0.700-1.30 mg/dL Glomerular Filtration Rate Calc 12 >90 mL/min BUN/Creatinine Ratio 12.4 10.0-20.0 Serum Glucose 93 74-106 mg/dL Calcium Level 8.8 8.7-10.4 mg/dL Phosphorus Level 7.7 H 2.4-5.1 mg/dL Magnesium Level 2.8 H 1.6-2.6 mg/dL Total Bilirubin 0.5 0.2-1.0 mg/dL Aspartate Amino Transferase (AST) 22 13-40 U/L Alanine Aminotransferase (ALT) 12 7-40 U/L Alkaline Phosphatase 70 46-116 U/L Total Protein 6.0 5.7-8.2 g/dL Albumin 3.6 3.2-4.8 g/dL Urine Color Yellow Yellow Urine Clarity Ex.turbid Clear Urine pH 5.0 5.0-9.0 Urine Specific [place] 1.017 1.001-1.035 Urine Protein 1+ H Negative Urine Ketones Negative Negative Urine Blood 3+ H Negative /uL Urine Nitrite Negative Negative Urine Bilirubin Negative Negative Urine Urobilinogen Normal Negative mg/dL Urine Leukocyte Esterase 3+ Negative /uL Urine RBC 194 0 - 3 /hpf Urine WBC Clumps Present None Seen /hpf Urine Microscopic WBC 128 H 0-3 /HPF Urine Squamous Epithelial Cells None seen <5 /hpf Urine Bacteria Few H None Seen /hpf Urine Hyaline Casts Many 0 - 2 /lpf Urine Granular Casts Mod 0 /lpf Urine Yeast (Budding) Loaded None Seen /hpf Urine Glucose Normal Normal mg/dL Blood Gas Specimen Type Arterial Blood Gas Sample Site Right radial Blood Gas Patient Temperature 37.0 Arterial Blood Date Drawn [id number] Arterial Blood pH 7.466 H 7.350-7.450 Arterial Blood Partial Pressure CO2 34.5 L 35.0-48.0 mmHg Arterial Blood Partial Pressure O2 111.7 H 83.0-108.0 mmHg Arterial Blood HCO3 24.3 21.0-28.0 mmol/L Arterial Blood Oxygen Saturation 98.2 H 94.0-98.0 % Arterial Blood Base Excess 1.0 -2.0-3.0 mmol/L Arterial Blood Oxyhemoglobin 96.9 94.0-98.0 % Arterial Blood Carboxyhemoglobin 0.8 0.5-1.5 % Arterial Blood Methemoglobin 0.5 0.0-1.5 % Gui Test Modified Blood Gas Total Hemoglobin 11.80 L 13.5-17.5 g/dL Blood Gas Liter Flow 5.00 Blood Gas Modality Nasal cannula FiO2 % 40.0 Test 05/08/24 07:45 05/07/24 09:00 05/06/24 12:45 05/06/24 07:48 Range/Units Triglycerides Level 189 H < 150 mg/dL Body Fluid Source Ascities fluid Body Fluid pH 8.0 Body Fluid WBC (Manual) 1291 H 0-200 CUMM Body Fluid RBC (Manual) 279330 H 0-2000 CUMM Body Fluid Mononuclear Cells 61 % Body Fluid Polymorphonuclear Cells 39 H 0-25 % Urine Creatinine 149.05 H 30.0-125.0 mg/dL Urine Protein/Creatinine Ratio 0.47 Urine Sodium < 10 L 40-220 mmol/L Urine Total Protein 70.1 H 1-14 mg/dL Prothrombin Time 11.4 9.3-11.8 sec Prothrombin Time INR 1.08 0.9-1.15 Activated Partial Thromboplast Time 29.3 24.5-34.5 SEC Vitamin D 25-Hydroxy < 4.2 L 30.0-100 ng/mL Parathyroid Hormone (Intact) 254.1 H 18.4-80.1 pg/mL Cortisol AM Sample 71.66 H 5.27-22.45 ug/dL Hepatitis B Surface Antigen Negative Negative Hepatitis C Antibody Negative Negative Test 05/06/24 03:08 05/05/24 16:05 Range/Units Creatine Kinase 81 46-171 U/L B-Type Natriuretic Peptide 36.64 0-100 pg/mL Lactic Acid Level 1.4 0.4-2.0 mmol/L Ammonia 11 11-32 umol/L Lipase 57 H 12-53 U/L Microbiology Date/Time Source Procedure Growth Status 05/07/24 09:00 Ascities Fluid Gram Stain - Final Resulted 05/07/24 09:00 Ascities Fluid Body Fluid Culture - Preliminary Resulted 05/06/24 23:17 Nose MRSA Screen - Final Complete Assessment/Plan Plan acute hypoxemic resp failure malignant ascites colorectal cancer with liver mets atelectases QIANA/hepato-renal syndrome new HD pt seen and examined on [facility] on 5 lpm abg 7.46/c02=34/P02 111 CXR atelectases pt had 7 l fluid removed US shows re-accumulation management pt will need frequent paracentesis would benefit from tunnelled catheter, alok if family decide to take him on hospice obtain coags will follow up crit care time 35 min Plan discussed with: Other (rn) LYN MONTES MD May 09, 2024 12:33
--- NOTE | 2024-05-09 12:35 | DVHPN2 ---
Progress Note - Dictate Date Seen: May 09, 2024 Medical Necessity Reason Pt with a Central, PICC or Fol: Yes The following are medically ne: Alvarez Catheter vital signs Vital Sign Date Time Temp Pulse Resp B/P (MAP) Pulse Ox O2 Delivery O2 Flow Rate FiO2 05/09/24 12:00 99.3 118 12 103/72 (82) 97 99.3 05/09/24 08:00 Nasal Cannula* 2 28 Total Intake and Output 05/08/24 05/08/24 05/09/24 15:00 23:00 07:00 Intake Total 1400 ml 400 ml 200 ml Output Total 200 ml 50 ml Balance 1400 ml 200 ml 150 ml medications Current Medications Medications Dose Ordered Sig/Tamy Route Start Time Stop Time Status Last Admin Dose Admin Ondansetron HCl 4 mg Q4HP PRN IV 05/05/24 19:45 05/09/24 07:38 4 MG Nitroglycerin 0.4 mg Q5MINP PRN SL 05/05/24 19:45 Morphine Sulfate 2 mg Q30M PRN IV 05/05/24 19:45 05/06/24 21:00 2 MG Sevelamer HCl 1,600 mg TIDWM PO 05/06/24 12:00 05/09/24 07:37 1,600 MG Lorazepam 0.5 mg Q4HP PRN IV 05/06/24 12:00 05/07/24 01:54 0.5 MG Acetaminophen/ Hydrocodone Bitart 1 tab Q6HPRN PRN PO 05/07/24 22:45 05/08/24 15:48 1 TAB Morphine Sulfate 2 mg Q4HPRN PRN IV 05/08/24 16:00 05/09/24 07:38 2 MG Ceftriaxone Sodium 50 ml @ 100 mls/hr DAILY@09 IV 05/09/24 09:00 05/09/24 07:37 100 MLS/HR Amino Acids 0 ml @ 0 mls/hr PER PHARMACY IV 05/08/24 16:15 Heparin Sodium (Porcine) 5,000 units Q12HR SC 05/08/24 22:00 05/09/24 07:37 5,000 UNITS Loperamide HCl 2 mg PRN PRN PO 05/08/24 16:15 05/08/24 22:39 2 MG Pantoprazole Sodium 40 mg DAILY IV 05/09/24 10:00 05/09/24 07:37 40 MG Diagnostic Test (Pha) 1 strip Q6HR 05/08/24 18:00 05/09/24 08:39 1 STRIP Insulin Human Regular FOLLOW SLIDING SCALE Q6HR SC 05/08/24 18:00 Dextrose 50 ml UD IV 05/08/24 16:45 Amino Acids/ Electrolytes/ Dextrose 2,000 ml @ 41 mls/hr DAILY@2200 IV 05/08/24 22:00 Dextrose 1,000 ml @ 25 mls/hr Q24H IV 05/08/24 19:00 UNV laboratory and microbiology Laboratory Tests 05/09/24 05:20 Test 05/09/24 05:20 Range/Units Serum Glucose 93 74-106 mg/dL Assessment/Plan acute resp failure malignant ascites atelectases liver mets QIANA/hepato-renal syndrome pt seen and examined on [facility] events more sob and distended in spite of recent paracentesis on 5 lpm \ increasing 02 requirements plan proceed to paracentesis may benefit from tunnelled catheter HD with fluid removal oncology input supportive care cr care time 35 min Dietary Evaluation Review Comments: 1) Initiate Nepro tid. Encourage optimal PO intake 2) If anorexia persists, consider increasing TPN rate to meet at least 75% of daily estimated needs. Current TPN regimen meets ~ 33% estimated daily energy needs and 28% estimated daily protein needs. 3) F/u with nephrology and oncology Expected Outcomes/Goals: 1) appetite and labs to improve 2) GI symptoms to improve 3) f/u in 3 days Plan discussed with: Other (rn) LYN MONTES MD May 09, 2024 12:35
--- NOTE | 2024-05-09 13:03 | DVHNC2 ---
Procedure - us guided paracentesis consent obtained time out per protocol right lower quadrant approach sterile drapes chlorapep lidocaine 1% 10 cc seldinger technique 4.7 l of blood-stained fluid aspirated with 8F catheter band aid applied sample sent for cytology LYN MONTES MD May 09, 2024 13:03
--- NOTE | 2024-05-09 13:53 | DVHPN2 ---
Subjective The patient is seen and examined at bedside. The patient feels better today. The patient had paracentesis done today with 500 mL of fluid removed by track service worker, Dr. Ballard. and mother at bedside complain that patient complain of bilateral lower extremity pain. Reviewed: Care Plan, H&P, Labs, Medications, Previous Orders, Radiology Changes from previous H/P or p: No Changes Objective Vitals Vital Signs Date Time Temp Pulse Resp B/P (MAP) Pulse Ox O2 Delivery O2 Flow Rate FiO2 05/09/24 13:00 117 17 112/73 (86) 97 05/09/24 12:00 99.3 99.3 05/09/24 08:00 Nasal Cannula* 2 28 Intake/Output Intake and Output 05/09/24 07:00 Intake Total 2000 ml Output Total 250 ml Balance 1750 ml Intake Oral 450 ml IV Total 1550 ml Output Urine Total 250 ml General Appearance: Alert, Oriented X3, Cooperative, moderate distress HEENT: Atraumatic, PERRLA, EOMI, Mucous membr. moist/pink Neck: Supple Lungs: Clear to auscultation, Normal air movement Cardiovascular: Regular rate, Normal S1, Normal S2, No murmurs, Gallops, Rubs Abdomen: Normal bowel sounds, Soft, No tenderness Neuro: Cranial nerves 3-12 NL Psych/Mental Status: Mental status NL Medications Current Medications Medications Dose Ordered Sig/Tamy Route Start Time Stop Time Status Last Admin Dose Admin Ondansetron HCl 4 mg Q4HP PRN IV 05/05/24 19:45 05/09/24 07:38 4 MG Nitroglycerin 0.4 mg Q5MINP PRN SL 05/05/24 19:45 Morphine Sulfate 2 mg Q30M PRN IV 05/05/24 19:45 05/06/24 21:00 2 MG Sevelamer HCl 1,600 mg TIDWM PO 05/06/24 12:00 05/09/24 07:37 1,600 MG Lorazepam 0.5 mg Q4HP PRN IV 05/06/24 12:00 05/07/24 01:54 0.5 MG Acetaminophen/ Hydrocodone Bitart 1 tab Q6HPRN PRN PO 05/07/24 22:45 05/08/24 15:48 1 TAB Morphine Sulfate 2 mg Q4HPRN PRN IV 05/08/24 16:00 05/09/24 07:38 2 MG Ceftriaxone Sodium 50 ml @ 100 mls/hr DAILY@09 IV 05/09/24 09:00 05/09/24 07:37 100 MLS/HR Amino Acids 0 ml @ 0 mls/hr PER PHARMACY IV 05/08/24 16:15 Heparin Sodium (Porcine) 5,000 units Q12HR SC 05/08/24 22:00 05/09/24 07:37 5,000 UNITS Loperamide HCl 2 mg PRN PRN PO 05/08/24 16:15 05/08/24 22:39 2 MG Pantoprazole Sodium 40 mg DAILY IV 05/09/24 10:00 05/09/24 07:37 40 MG Diagnostic Test (Pha) 1 strip Q6HR 05/08/24 18:00 05/09/24 08:39 1 STRIP Insulin Human Regular FOLLOW SLIDING SCALE Q6HR SC 05/08/24 18:00 Dextrose 50 ml UD IV 05/08/24 16:45 Amino Acids/ Electrolytes/ Dextrose 2,000 ml @ 41 mls/hr DAILY@2200 IV 05/08/24 22:00 Dextrose 1,000 ml @ 25 mls/hr Q24H IV 05/08/24 19:00 UNV Laboratory Results Laboratory Tests 05/09/24 05:20 Chemistry Test 05/09/24 05:20 Albumin 3.6 g/dL (3.2-4.8) Calcium Level 8.8 mg/dL (8.7-10.4) Magnesium Level 2.8 mg/dL (1.6-2.6) H Phosphorus Level 7.7 mg/dL (2.4-5.1) H Total Protein 6.0 g/dL (5.7-8.2) LFT Test 05/09/24 05:20 Alanine Aminotransferase (ALT) 12 U/L (7-40) Alkaline Phosphatase 70 U/L (46-116) Aspartate Amino Transferase (AST) 22 U/L (13-40) Total Bilirubin 0.5 mg/dL (0.2-1.0) Urinalysis Test 05/06/24 12:45 05/09/24 01:20 Urine Creatinine 149.05 mg/dL (30.0-125.0) H Urine Protein/Creatinine Ratio 0.47 Urine Sodium < 10 mmol/L (40-220) L Urine Total Protein 70.1 mg/dL (1-14) H Urine Color Yellow (Yellow) Urine Clarity Ex.turbid (Clear) Urine pH 5.0 (5.0-9.0) Urine Specific [place] 1.017 (1.001-1.035) Urine Protein 1+ (Negative) H Urine Ketones Negative (Negative) Urine Blood 3+ /uL (Negative) H Urine Nitrite Negative (Negative) Urine Bilirubin Negative (Negative) Urine Urobilinogen Normal mg/dL (Negative) Urine Leukocyte Esterase 3+ /uL (Negative) Urine RBC 194 /hpf (0 - 3) Urine WBC Clumps Present /hpf (None Seen) Urine Microscopic WBC 128 /HPF (0-3) H Urine Squamous Epithelial Cells None seen /hpf (<5) Urine Bacteria Few /hpf (None Seen) H Urine Hyaline Casts Many /lpf (0 - 2) Urine Granular Casts Mod /lpf (0) Urine Yeast (Budding) Loaded /hpf (None Seen) Urine Glucose Normal mg/dL (Normal) Blood Gas Results Test 05/08/24 17:51 Arterial Blood pH 7.466 (7.350-7.450) FiO2 % 40.0 Microbiology Microbiology Date/Time Source Procedure Growth Status 05/07/24 09:00 Ascities Fluid Gram Stain - Final Resulted 05/07/24 09:00 Ascities Fluid Body Fluid Culture - Preliminary Resulted 05/06/24 23:17 Nose MRSA Screen - Final Complete Labs and/or images reviewed: Labs reviewed by me Assessment/Plan Assessment/Plan Acute renal failure Metastatic colon cancer Electrolyte imbalance , hyperkalemia Ascites Bilateral lower extremity edema Intractable nausea and vomiting Continuing current management. Appreciate nephrology input. Continue to give lokema to treat for hyperkalemia Continue Ativan 0.4 mg IV q.4 p.r.n. for anxiety Will start clinimix for nutrient support Continue zofran PRN for nausea/vomiting I will order ultrasound bilateral lower extremity rule out DVT DW patient,his mother and at bedside. Patient supposed to start chemotherapy evaluation with his oncologist, Dr. Robb Saldaña on Friday now. This medical document was created using an electronic medical record system with M*[employer] direct computerized dictation system. Although this document has been carefully reviewed, there may still be some phonetic and typographical errors. These areas are purely typographical due to imperfections of the software programs, and do not reflect any compromise in the patient's medical care. This medical document was created using an electronic medical record system with M*sw[employer]r direct computerized dictation system. Although this document has been carefully reviewed, there may still be some phonetic and typographical errors. These areas are purely typographical due to imperfections of the software programs, and do not reflect any compromise in the patient's medical care. Plan discussed with: Patient, Spouse, Other (mother) My Orders Orders - GABRIELE COLIN MD Procedure Category Date Status Time Morphine Sulfate PHA 05/08/24 In Process Injection 16:00 Ceftriaxone 1gm/50ml PHA 05/09/24 In Process D5w (Rocephin) 09:00 Clinimix Per Pharmacy PHA 05/08/24 In Process 16:15 * Gi Dvh Kiln Loader CONS 05/08/24 Transmitted 16:13 * Radiologist Consult CONS 05/09/24 Transmitted 08:00 Respiratory Culture CHUNG 05/08/24 Uncollected W/ Gs 16:13 Urine Bacterial CHUNG 05/08/24 In Process Culture 18:00 Heparin Sodium PHA 05/08/24 In Process (Porcine) 22:00 Loperamide Capsule PHA 05/08/24 In Process (Imodium Capsule) 16:15 Pantoprazole PHA 05/09/24 In Process (Protonix) 10:00 Glucose Blood PHA 05/08/24 In Process (Accu-Chek Comfort 18:00 Insulin R (Human) PHA 05/08/24 In Process (Insulin R) 18:00 Dextrose 50% Syringe PHA 05/08/24 In Process 16:45 Amino Acid Infusion PHA 05/08/24 In Process In D10w (Clinimix 4. 22:00 Clinimix Per Pharmacy BROOKE 05/08/24 In Process 22:00 Abdomen Limited US 05/09/24 Resulted 08:00 Mrsa Screen CHUNG 05/09/24 In Process 04:50 Blood Culture CHUNG 05/09/24 In Process 10:29 Date of Service: May 09, 2024 Billing Provider: GABRIELE COLIN MD Common Visit Codes: [id number] INP/OBS CARE(HIGH) GABRIELE COLIN MD May 09, 2024 13:53
--- NOTE | 2024-05-09 15:34 | DVHINCON2 ---
Date of service: May 09, [address] patti Armenta Reason for Consultation Abdominal pain ascites shortness of breath history of colon cancer History of Present Illness This 48-year-old male with a history of colon cancer with metastases to the lymph nodes is presenting with complaints of shortness of breath abdominal pain patient had had paracentesis couple of times. Patient has has got intractable ascites and waiting for chemotherapy had a Port-A-Cath placement. Patient has got stain is colon cancer with Mets. The reason for GI consult is for abdominal pains etc. Past Medical History History of colon cancer with Mets Past Surgical History Unremarkable Family History: Diabetes mellitus G8 MOTHER Hypertension G8 MOTHER Family History Noncontributory Social History Denies smoking or drug abuse drinking Allergies: Coded Allergies: NO KNOWN ALLERGIES (Unverified , 04/13/24) Home Meds Active Scripts Hydrocodone-Acetaminophen (Hydrocodone Bitartrate/AC 5-325 mg) 1 Tab Tab, 1 TAB PO Q8HP PRN for 5 Days, #15 TAB Prov:ADAM MOMIN [employer] 04/21/24 Furosemide (Lasix) 20 Mg Tb, 1 TAB PO DAILY for 30 Days, #30 TAB 1 Refill Prov:ADAM MOMIN [employer] 04/21/24 Levofloxacin Hemihydrate (LEVAQUIN 500 MG) 500 Mg Tab, 1 TAB PO DAILY for 5 Days, #5 TAB Prov:ADAM MOMIN [employer] 04/21/24 Metronidazole (Flagyl) 500 Mg Tab, 1 TAB PO TID for 5 Days, #15 TAB Prov:ADAM MOMIN [employer] 04/21/24 Reported Medications Pantoprazole Sodium Sesquihydr (Pantoprazole Sodium) 40 Mg Tab, 40 MG PO, TAB 05/06/24 Zolpidem Tartrate (Zolpidem Tartrate) 5 Mg Tab, 5 MG PO for FOR SLEEP, TAB 05/06/24 Metoclopramide HCl (Metoclopramide Hydrochlor) 10 Mg Tab, 10 MG PO, TAB 05/06/24 Current Medications Current Medications Medications (Trade) Dose Ordered Sig/Tamy Route PRN Reason Start Time Stop Time Status Last Admin Morphine Sulfate 2 mg Q4HPRN PRN IV SEVERE PAIN (7-10 PAIN SCALE) 05/08/24 16:00 05/09/24 07:38 Ceftriaxone Sodium 50 ml @ 100 mls/hr DAILY@09 IV 05/09/24 09:00 05/09/24 07:37 Amino Acids 0 ml @ 0 mls/hr PER PHARMACY IV 05/08/24 16:15 Heparin Sodium (Porcine) 5,000 units Q12HR SC 05/08/24 22:00 05/09/24 07:37 Loperamide HCl (Imodium Capsule) 2 mg PRN PRN PO FOR DIARRHEA 05/08/24 16:15 05/08/24 22:39 Pantoprazole Sodium (Protonix) 40 mg DAILY IV 05/09/24 10:00 05/09/24 07:37 Diagnostic Test (Pha) (Accu-Chek Comfort Curve T) 1 strip Q6HR 05/08/24 18:00 05/09/24 08:39 Insulin Human Regular (InsuLIN R) FOLLOW SLIDING SCALE Q6HR SC 05/08/24 18:00 Dextrose 50 ml UD IV 05/08/24 16:45 Amino Acids/ Electrolytes/ Dextrose 2,000 ml @ 41 mls/hr DAILY@2200 IV 05/08/24 22:00 05/09/24 14:27 DC Dextrose 1,000 ml @ 25 mls/hr Q24H IV 05/08/24 19:00 UNV Amino Acids/ Electrolytes/ Dextrose 1,000 ml @ 41 mls/hr DAILY@2200 IV 05/09/24 22:00 Review of Systems Non contributtory Vital Signs Vital Signs Date Time Temp Pulse Resp B/P (MAP) Pulse Ox O2 Delivery O2 Flow Rate FiO2 05/09/24 13:00 117 17 112/73 (86) 97 05/09/24 12:00 99.3 99.3 05/09/24 08:00 Nasal Cannula* 2 28 Physical Exam Moderately built and nourished male in no acute distress HEENT examination no pallor Lungs clear Abdomen grossly distended with tenderness in the epigastrium does doughy with masses felt in the abdomen Tenderness also in lower quadrants Distention with a possible ascites Extremities edema Neurological grossly intact Labs/Diagnostic Data Labs Test 05/09/24 11:16 05/09/24 05:20 05/09/24 01:20 05/08/24 17:51 Range/Units POC Glucose 189 H 70-106 mg/dl White Blood Count 11.2 #H 4.4-10.8 10^3/uL Red Blood Count 4.43 L 4.5-5.90 10^6/uL Hemoglobin 11.4 L 13.5-17.5 g/dL Hematocrit 35.0 L 41.0-53.0 % Mean Corpuscular Volume 79.1 L 80.0-100.0 fL Mean Corpuscular Hemoglobin 25.8 L 28.0-32.0 pg Mean Corpuscular Hemoglobin Concent 32.7 32.0-36.0 g/dL Red Cell Distribution Width 15.3 H 11.8-14.3 % Platelet Count 302 140-450 10^3/uL Mean Platelet Volume 7.7 6.9-10.8 fL Neutrophils (%) (Auto) 85.9 H 37.0-80.0 % Lymphocytes (%) (Auto) 3.8 L 10.0-50.0 % Monocytes (%) (Auto) 8.8 0.0-12.0 % Eosinophils (%) (Auto) 1.3 0.0-7.0 % Basophils (%) (Auto) 0.2 0.0-2.0 % Neutrophils # (Auto) 9.6 H 1.6-8.6 10 ^3/uL Lymphocytes # (Auto) 0.4 0.4-5.4 10 ^3/uL Monocytes # (Auto) 1.0 0-1.3 10 ^3/uL Eosinophils # (Auto) 0.1 0-0.8 10 ^3/uL Basophils # (Auto) 0 0-0.2 10 ^3/uL Nucleated Red Blood Cells 0.1 % Sodium Level 130 L 136-145 mmol/L Potassium Level 4.5 3.5-5.1 mmol/L Chloride Level 94 L 98-107 mmol/L Carbon Dioxide Level 26 20-31 mmol/L Anion Gap 10 5-15 Blood Urea Nitrogen 66 #H 9-23 mg/dL Creatinine 5.34 H 0.700-1.30 mg/dL Glomerular Filtration Rate Calc 12 >90 mL/min BUN/Creatinine Ratio 12.4 10.0-20.0 Serum Glucose 93 74-106 mg/dL Calcium Level 8.8 8.7-10.4 mg/dL Phosphorus Level 7.7 H 2.4-5.1 mg/dL Magnesium Level 2.8 H 1.6-2.6 mg/dL Total Bilirubin 0.5 0.2-1.0 mg/dL Aspartate Amino Transferase (AST) 22 13-40 U/L Alanine Aminotransferase (ALT) 12 7-40 U/L Alkaline Phosphatase 70 46-116 U/L Total Protein 6.0 5.7-8.2 g/dL Albumin 3.6 3.2-4.8 g/dL Urine Color Yellow Yellow Urine Clarity Ex.turbid Clear Urine pH 5.0 5.0-9.0 Urine Specific [place] 1.017 1.001-1.035 Urine Protein 1+ H Negative Urine Ketones Negative Negative Urine Blood 3+ H Negative /uL Urine Nitrite Negative Negative Urine Bilirubin Negative Negative Urine Urobilinogen Normal Negative mg/dL Urine Leukocyte Esterase 3+ Negative /uL Urine RBC 194 0 - 3 /hpf Urine WBC Clumps Present None Seen /hpf Urine Microscopic WBC 128 H 0-3 /HPF Urine Squamous Epithelial Cells None seen <5 /hpf Urine Bacteria Few H None Seen /hpf Urine Hyaline Casts Many 0 - 2 /lpf Urine Granular Casts Mod 0 /lpf Urine Yeast (Budding) Loaded None Seen /hpf Urine Glucose Normal Normal mg/dL Blood Gas Specimen Type Arterial Blood Gas Sample Site Right radial Blood Gas Patient Temperature 37.0 Arterial Blood Date Drawn [id number] Arterial Blood pH 7.466 H 7.350-7.450 Arterial Blood Partial Pressure CO2 34.5 L 35.0-48.0 mmHg Arterial Blood Partial Pressure O2 111.7 H 83.0-108.0 mmHg Arterial Blood HCO3 24.3 21.0-28.0 mmol/L Arterial Blood Oxygen Saturation 98.2 H 94.0-98.0 % Arterial Blood Base Excess 1.0 -2.0-3.0 mmol/L Arterial Blood Oxyhemoglobin 96.9 94.0-98.0 % Arterial Blood Carboxyhemoglobin 0.8 0.5-1.5 % Arterial Blood Methemoglobin 0.5 0.0-1.5 % Gui Test Modified Blood Gas Total Hemoglobin 11.80 L 13.5-17.5 g/dL Blood Gas Liter Flow 5.00 Blood Gas Modality Nasal cannula FiO2 % 40.0 Test 05/08/24 07:45 05/07/24 09:00 05/06/24 12:45 05/06/24 07:48 Range/Units Triglycerides Level 189 H < 150 mg/dL Body Fluid Source Ascities fluid Body Fluid pH 8.0 Body Fluid WBC (Manual) 1291 H 0-200 CUMM Body Fluid RBC (Manual) 366338 H 0-2000 CUMM Body Fluid Mononuclear Cells 61 % Body Fluid Polymorphonuclear Cells 39 H 0-25 % Urine Creatinine 149.05 H 30.0-125.0 mg/dL Urine Protein/Creatinine Ratio 0.47 Urine Sodium < 10 L 40-220 mmol/L Urine Total Protein 70.1 H 1-14 mg/dL Prothrombin Time 11.4 9.3-11.8 sec Prothrombin Time INR 1.08 0.9-1.15 Activated Partial Thromboplast Time 29.3 24.5-34.5 SEC Vitamin D 25-Hydroxy < 4.2 L 30.0-100 ng/mL Parathyroid Hormone (Intact) 254.1 H 18.4-80.1 pg/mL Cortisol AM Sample 71.66 H 5.27-22.45 ug/dL Hepatitis B Surface Antigen Negative Negative Hepatitis C Antibody Negative Negative Test 05/06/24 03:08 05/05/24 16:05 Range/Units Creatine Kinase 81 46-171 U/L B-Type Natriuretic Peptide 36.64 0-100 pg/mL Lactic Acid Level 1.4 0.4-2.0 mmol/L Ammonia 11 11-32 umol/L Lipase 57 H 12-53 U/L Microbiology Date/Time Source Procedure Growth Status 05/09/24 04:50 Nose MRSA Screen - Final Complete 05/07/24 09:00 Ascities Fluid Gram Stain - Final Resulted 05/07/24 09:00 Ascities Fluid Body Fluid Culture - Preliminary Resulted Assessment 48-year-old with colon cancer the colon with metastasis with admitted with the complaints of abdominal distention with shortness of breath and cough had paracentesis still having problem patient is awaiting Oncology consultation for further treatment labs showed that the BUN is 163 creatinine is 8.81 potassium 7.2 clinical impression is carcinoma of the colon with metastasis massive ascites lymph node in the stomach Renal failure Plan/Recommendation We will recommend Oncology consult nephrology consult paracentesis and further treatment depending upon the clinical response his overall prognosis extremely guarded Thank you Dr. Michael Uribe discussed with: Patient GLENN MARAVILLA MD May 09, 2024 15:34
--- NOTE | 2024-05-09 17:01 | DVH ---
Bilateral lower extremity venous duplex Clinical History: rule out dvt Comparison: None Technique: Duplex Doppler evaluation of the deep venous systems of both lower extremities from the co mmon femoral veins to the popliteal veins including color Doppler and spectral/pulsed waveform analys is was performed. Findings: RIGHT SIDE: The common femoral vein demonstrates appropriate compressibility and waveform variability. There is compressibility/patency of the great saphenous vein at the proximal thigh. The femoral vein demonstrates appropriate compressibility and waveform variability. The deep femoral vein demonstrates appropriate compressibility and waveform variability. The popliteal vein demonstrates non compressible with partial flow noted There is color flow at the tibioperoneal trunk and in the posterior tibial vein. LEFT SIDE: The common femoral vein demonstrates appropriate compressibility and waveform variability. There is compressibility/patency of the great saphenous vein at the proximal thigh. The femoral vein demonstrates appropriate compressibility and waveform variability. The deep femoral vein demonstrates appropriate compressibility and waveform variability. The popliteal vein demonstrates appropriate compressibility and waveform variability. There is color flow at the tibioperoneal trunk and in the posterior tibial vein. Impression: Right lower extremity: Partially occlusive popliteal vein DVT. Left lower extremity: No evidence of DVT. The nurse in charge of the patient, Stacy was notified of findings by the survey technologist upon completion of the exam.
[2024-05-09] MEDS: APIXABAN 5 MG TAB PO SCH (21:35)
[2024-05-09] MEDS: AMINO ACID INFUSION IN D10W 1,000 ML IV SCH (21:36)
[2024-05-10] VITALS (31 sets, daily range): BP systolic 91–122; BP diastolic 61–80; PULSE 108–122; RESP 10–22; TEMP 97–98.5; O2SAT 93–100
[2024-05-10 05:34] LABS: Basophils # (auto) 0 10 ^3/uL (0-0.2); Basophils % (auto) 0.3 % (0.0-2.0); Eosinophils # (auto) 0.2 10 ^3/uL (0-0.8); Eosinophils % (auto) 1.5 % (0.0-7.0); Lymphocytes # (auto) 0.3 10 ^3/uL (0.4-5.4); Neutrophils # (auto) 11.6 10 ^3/uL (1.6-8.6); White Blood Cell 13.1 10^3/uL (4.4-10.8)
[2024-05-10 05:37] LABS: Hematocrit 34.4 % (41.0-53.0); Hemoglobin 11.5 g/dL (13.5-17.5); Lymphocytes % (auto) 2.2 % (10.0-50.0); Mean Corpuscular Hemoglobin 26.2 pg (28.0-32.0); Mean Corpuscular Hgb Conc. 33.4 g/dL (32.0-36.0); Mean Corpuscular Volume 78.5 fL (80.0-100.0); Monocytes # (auto) 0.9 10 ^3/uL (0-1.3); Monocytes % (auto) 6.8 % (0.0-12.0); Neutrophils % (auto) 89.2 % (37.0-80.0); Platelet Count (auto) 279 10^3/uL (140-450); Red Blood Cells 4.38 10^6/uL (4.5-5.90); Red Cell Distribution Width 14.9 % (11.8-14.3)
[2024-05-10 05:51] LABS: Alanine Aminotransferase 16 U/L (7-40); Albumin 3.3 g/dL (3.2-4.8); Alkaline Phosphatase 69 U/L (46-116); Anion Gap 9 (5-15); Aspartate Aminotransferase 21 U/L (13-40); BUN/Creatinine Ratio 12.3 (10.0-20.0); Bilirubin, Total 0.4 mg/dL (0.2-1.0); Blood Urea Nitrogen 79 mg/dL (9-23); Calcium 8.4 mg/dL (8.7-10.4); Carbon Dioxide 25 mmol/L (20-31); Chloride 93 mmol/L (98-107); Glucose 116 mg/dL (74-106); Magnesium 2.8 mg/dL (1.6-2.6); Phosphorus 7.6 mg/dL (2.4-5.1); Potassium 4.6 mmol/L (3.5-5.1); Sodium 127 mmol/L (136-145); Total Protein 5.7 g/dL (5.7-8.2)
--- NOTE | 2024-05-10 11:20 | DVHPN2 ---
Progress Note Date Seen: May 10, 2024 Resident Creating Document: MICHELLE RODRIGUEZ RESIDENT Medical Necessity Reason Pt with a Central, PICC or Fol: Yes The following are medically ne: Alvarez Catheter Subjective Review of Systems 48-year-old male with a history of colon cancer with metastases to the lymph nodes is presenting with complaints of shortness of breath abdominal pain patient had had paracentesis couple of times. Patient has has got intractable ascites and waiting for chemotherapy had a Port-A-Cath placement. Patient has colon cancer with Mets. Patient will get chemotherapy. Dr. Saldaña is on board. Objective vital signs Vital Sign Date Time Temp Pulse Resp B/P (MAP) Pulse Ox O2 Delivery O2 Flow Rate FiO2 05/10/24 11:09 113 12 110/66 05/10/24 11:00 96 05/10/24 08:00 98.4 98.4 05/10/24 08:00 Nasal Cannula* 2 28 Total Intake and Output 05/09/24 05/09/24 05/10/24 15:00 23:00 07:00 Intake Total 50 ml 291 ml 546 ml Output Total 4825 ml 150 ml Balance 50 ml -4534 ml 396 ml medications Current Medications Medications Dose Ordered Sig/Tamy Route Start Time Stop Time Status Last Admin Dose Admin Ondansetron HCl 4 mg Q4HP PRN IV 05/05/24 19:45 05/09/24 21:34 4 MG Nitroglycerin 0.4 mg Q5MINP PRN SL 05/05/24 19:45 Morphine Sulfate 2 mg Q30M PRN IV 05/05/24 19:45 05/06/24 21:00 2 MG Sevelamer HCl 1,600 mg TIDWM PO 05/06/24 12:00 05/09/24 17:16 1,600 MG Lorazepam 0.5 mg Q4HP PRN IV 05/06/24 12:00 05/07/24 01:54 0.5 MG Acetaminophen/ Hydrocodone Bitart 1 tab Q6HPRN PRN PO 05/07/24 22:45 05/08/24 15:48 1 TAB Morphine Sulfate 2 mg Q4HPRN PRN IV 05/08/24 16:00 05/10/24 10:37 2 MG Ceftriaxone Sodium 50 ml @ 100 mls/hr DAILY@09 IV 05/09/24 09:00 05/10/24 09:10 100 MLS/HR Amino Acids 0 ml @ 0 mls/hr PER PHARMACY IV 05/08/24 16:15 Heparin Sodium (Porcine) 5,000 units Q12HR SC 05/08/24 22:00 Hold 05/09/24 07:37 5,000 UNITS Loperamide HCl 2 mg PRN PRN PO 05/08/24 16:15 05/09/24 21:35 2 MG Pantoprazole Sodium 40 mg DAILY IV 05/09/24 10:00 05/10/24 10:11 40 MG Diagnostic Test (Pha) 1 strip Q6HR 05/08/24 18:00 05/10/24 06:16 1 STRIP Insulin Human Regular FOLLOW SLIDING SCALE Q6HR SC 05/08/24 18:00 Dextrose 50 ml UD IV 05/08/24 16:45 Dextrose 1,000 ml @ 25 mls/hr Q24H IV 05/08/24 19:00 UNV Amino Acids/ Electrolytes/ Dextrose 1,000 ml @ 41 mls/hr DAILY@2200 IV 05/09/24 22:00 05/09/24 21:36 41 MLS/HR Apixaban 5 mg BID PO 05/09/24 22:00 05/10/24 10:11 5 MG Examination Moderately built and nourished male in no acute distress HEENT: Normocephalic atraumatic, mucous membranes moist and pink. Neck: Cervical and supraclavicular nodes normal without enlargement, trachea is midline, thyroid gland is normal without masses. Pulmonary: Clear to auscultation and percussion bilaterally. Cardiac: Regular rate and rhythm. No murmur Abdomen: Soft, nontender,distended, bowel sounds present all 4 quadrants, no guarding, no rigidity, no organomegaly. Extremities: No cyanosis, clubbing, no edema Neurological grossly intact laboratory and microbiology Laboratory Tests 05/10/24 04:50 Test 05/10/24 04:50 Range/Units Serum Glucose 116 H 74-106 mg/dL Microbiology Date/Time Source Procedure Growth Status 05/09/24 10:55 Blood Blood Culture - Preliminary NO GROWTH AFTER 24 HOURS OF INCUBATION. Resulted 05/09/24 04:50 Nose MRSA Screen - Final Complete 05/09/24 01:20 Urine - [place] Port Urine Culture - Preliminary Resulted 05/07/24 09:00 Ascities Fluid Gram Stain - Final Resulted 05/07/24 09:00 Ascities Fluid Body Fluid Culture - Preliminary Resulted Problem List/Assessment/Plan Problem List/Assessment/Plan # Metastatic colon cancer # liver mets # Ascites, S/P paracentesis # Intractable nausea and vomiting # QIANA. # Electrolyte imbalance , hyperkalemia # Shortness of breath - CT abdomen on 05/06/2024 - paracentesis done -Patient is tolerating diet -hepatitis panel negative -waiting for restart chemotherapy for colon cancer -Heme-Onc is on board -order CEA - Overall prognosis is guarded and this was discussed with patient and at the bedside Thank you so much for the opportunity to consult on your patient. GI team will follow the patient. In case of any questions or concerns please feel free to reach out. Case discussed with Dr. Pamela Alexander. The patient and caregiver team agreed to the plan. Plan discussed with: Patient, Spouse My Orders My Orders Orders - MICHELLE RODRIGUEZ RESIDENT Procedure Category Date Status Time Carcinoembryonic LAB 05/10/24 In Process Antigen 11:15 Dietary Evaluation Review Comments: 1) Initiate Nepro tid. Encourage optimal PO intake 2) If anorexia persists, consider increasing TPN rate to meet at least 75% of daily estimated needs. Current TPN regimen meets ~ 33% estimated daily energy needs and 28% estimated daily protein needs. 3) F/u with nephrology and oncology Expected Outcomes/Goals: 1) appetite and labs to improve 2) GI symptoms to improve 3) f/u in 3 days MICHELLE RODRIGUEZ RESIDENT May 10, 2024 11:20
[2024-05-10] MEDS: HEPARIN SODIUM (PORCINE) 5000 UNITS/ML 1ML VIAL ONE (12:08)
[2024-05-10] MEDS: fentaNYL CITRATE 100 MCG/2 ML VL ONE ×2 (12:08→12:49)
[2024-05-10] MEDS: MIDAZOLAM HCL 2MG/2ML 2ml VIAL (1mg/ml) ONE ×2 (12:09→12:49)
[2024-05-10] MEDS: LIDOCAINE 2%HCL (LOCAL ANESTH.) INJ 20ML MDV ONE (12:09)
--- NOTE | 2024-05-10 13:35 | DVHPN2 ---
Progress Note Date Seen: May 10, 2024 Medical Necessity Reason Pt with a Central, PICC or Fol: Yes The following are medically ne: Alvarez Catheter Subjective Patient reports: No new complaints Review of Systems: Deferred Objective vital signs Vital Sign Date Time Temp Pulse Resp B/P (MAP) Pulse Ox O2 Delivery O2 Flow Rate FiO2 05/10/24 12:00 115 05/10/24 12:00 98.3 13 112/67 (82) 96 98.3 05/10/24 08:00 Nasal Cannula* 2 28 Total Intake and Output 05/09/24 05/09/24 05/10/24 15:00 23:00 07:00 Intake Total 50 ml 291 ml 546 ml Output Total 4825 ml 150 ml Balance 50 ml -4534 ml 396 ml medications Current Medications Medications Dose Ordered Sig/Tamy Route Start Time Stop Time Status Last Admin Dose Admin Ondansetron HCl 4 mg Q4HP PRN IV 05/05/24 19:45 05/09/24 21:34 4 MG Nitroglycerin 0.4 mg Q5MINP PRN SL 05/05/24 19:45 Morphine Sulfate 2 mg Q30M PRN IV 05/05/24 19:45 05/06/24 21:00 2 MG Sevelamer HCl 1,600 mg TIDWM PO 05/06/24 12:00 05/09/24 17:16 1,600 MG Lorazepam 0.5 mg Q4HP PRN IV 05/06/24 12:00 05/07/24 01:54 0.5 MG Acetaminophen/ Hydrocodone Bitart 1 tab Q6HPRN PRN PO 05/07/24 22:45 05/08/24 15:48 1 TAB Morphine Sulfate 2 mg Q4HPRN PRN IV 05/08/24 16:00 05/10/24 10:37 2 MG Ceftriaxone Sodium 50 ml @ 100 mls/hr DAILY@09 IV 05/09/24 09:00 05/10/24 09:10 100 MLS/HR Amino Acids 0 ml @ 0 mls/hr PER PHARMACY IV 05/08/24 16:15 Heparin Sodium (Porcine) 5,000 units Q12HR SC 05/08/24 22:00 Hold 05/09/24 07:37 5,000 UNITS Loperamide HCl 2 mg PRN PRN PO 05/08/24 16:15 05/09/24 21:35 2 MG Pantoprazole Sodium 40 mg DAILY IV 05/09/24 10:00 05/10/24 10:11 40 MG Diagnostic Test (Pha) 1 strip Q6HR 05/08/24 18:00 05/10/24 11:29 1 STRIP Insulin Human Regular FOLLOW SLIDING SCALE Q6HR SC 05/08/24 18:00 Dextrose 50 ml UD IV 05/08/24 16:45 Dextrose 1,000 ml @ 25 mls/hr Q24H IV 05/08/24 19:00 UNV Amino Acids/ Electrolytes/ Dextrose 1,000 ml @ 41 mls/hr DAILY@2200 IV 05/09/24 22:00 05/10/24 21:59 05/09/24 21:36 41 MLS/HR Apixaban 5 mg BID PO 05/09/24 22:00 05/10/24 10:11 5 MG Amino Acids/ Electrolytes/ Dextrose 2,000 ml @ 41 mls/hr DAILY@2200 IV 05/10/24 22:00 Examination: GENERAL:Normal, HEENT:Normal, NECK:Normal, LUNGS:Normal, CVS:Normal, ABDOMEN:Normal, MSK:Normal, SKIN:Normal, NEURO:Normal, :Normal laboratory and microbiology Laboratory Tests 05/10/24 04:50 Test 05/10/24 04:50 Range/Units Serum Glucose 116 H 74-106 mg/dL Microbiology Date/Time Source Procedure Growth Status 05/09/24 10:55 Blood Blood Culture - Preliminary NO GROWTH AFTER 24 HOURS OF INCUBATION. Resulted 05/09/24 04:50 Nose MRSA Screen - Final Complete 05/09/24 01:20 Urine - [place] Urine Culture - Preliminary Resulted 05/07/24 09:00 Ascities Fluid Gram Stain - Final Resulted 05/07/24 09:00 Ascities Fluid Body Fluid Culture - Preliminary Resulted Problem List/Assessment/Plan Problem List/Assessment/Plan Acute kidney injury likely ATN needing HD Hyperkalemia Metabolic acidosis Hyponatremia Rule out adrenal insufficiency Malignant ascites Stage IV Colon Ca Recommendations HD today uf 1-2 d/w mother and bedside diuretics Plan discussed with: Patient, Spouse My Orders My Orders Orders - RUPAL GARCIA MD Procedure Category Date Status Time Hemodialysis Orders ORDERS 05/10/24 Transmitted 13:32 Dietary Evaluation Review Comments: 1) Initiate Nepro tid. Encourage optimal PO intake 2) If anorexia persists, consider increasing TPN rate to meet at least 75% of daily estimated needs. Current TPN regimen meets ~ 33% estimated daily energy needs and 28% estimated daily protein needs. 3) F/u with nephrology and oncology Expected Outcomes/Goals: 1) appetite and labs to improve 2) GI symptoms to improve 3) f/u in 3 days RUPAL GARCIA MD May 10, 2024 13:35
[2024-05-10] MEDS: SODIUM CHL 0.9% 1000 ML BAG XX ONE (15:21)
[2024-05-11] VITALS (11 sets, daily range): BP systolic 99–125; BP diastolic 65–76; PULSE 105–120; RESP 12–22; TEMP 96.4–97.9; O2SAT 96–99
[2024-05-11] MEDS: AMINO ACID INFUSION IN D10W 2,000 ML IV SCH (02:55)
[2024-05-11] MEDS: HEPARIN SODIUM (PORCINE) 5000 UNITS/ML 1ML VIAL ONE ×2 (09:40→11:04)
[2024-05-11] MEDS: MIDAZOLAM HCL 2MG/2ML 2ml VIAL (1mg/ml) ONE (09:41)
[2024-05-11] MEDS: fentaNYL CITRATE 100 MCG/2 ML VL ONE (09:41)
[2024-05-11] MEDS: LIDOCAINE 2%HCL (LOCAL ANESTH.) INJ 20ML MDV ONE (09:41)
[2024-05-11 10:56] LABS: Protein, Body Fluid 4.4 g/dL (.)
[2024-05-11 14:16] LABS: Alanine Aminotransferase 17 U/L (7-40); Albumin 3.3 g/dL (3.2-4.8); Alkaline Phosphatase 86 U/L (46-116); Anion Gap 8 (5-15); Aspartate Aminotransferase 23 U/L (13-40); BUN/Creatinine Ratio 9.3 (10.0-20.0); Carbon Dioxide 23 mmol/L (20-31); Magnesium 2.6 mg/dL (1.6-2.6); Potassium 4.5 mmol/L (3.5-5.1)
[2024-05-11 14:17] LABS: Total Protein 5.9 g/dL (5.7-8.2)
[2024-05-11 14:18] LABS: Bilirubin, Total 0.3 mg/dL (0.2-1.0)
[2024-05-11 14:19] LABS: Blood Urea Nitrogen 60 mg/dL (9-23); Calcium 8.3 mg/dL (8.7-10.4); Chloride 94 mmol/L (98-107); Glucose 109 mg/dL (74-106); Phosphorus 7.2 mg/dL (2.4-5.1); Sodium 125 mmol/L (136-145)
--- NOTE | 2024-05-11 14:20 | DVH ---
XY Insertion of Venous Cath, HISTORY: HD CATH PL PROCEDURE: Informed consent was obtained. The patient was placed supine on the interventional table. A limited localization ultrasound of the left neck base was obtained. The right neck base and upper c hest were prepped with chlorhexidine which was allowed to dry and draped in the usual sterile fashion . Time out was performed. IV sedation was administered. The skin and the soft tissues were infiltrate d with 1% Lidocaine. With real-time ultrasound guidance, the left internal jugular vein was accessed with a micropuncture kit, and an image documenting patency was recorded to PACS. Contrast was injecte d though the microsheath to confirm location. A subcutaneous tunneled tract was created from the righ t upper chest to the venotomy site. A 14.5 Turkmen [place] Path, 23 cm long hemodialysis catheter was ad vanced through the tunneled tract. Fluoroscopy was used to advance a guidewire through the internal jugular vein into the inferior vena cava with the help of a Félix catheter.. Following serial dilatation, a 15 Turkmen peel-away sheath was introduced, though which was advanced the catheter into the right atrium. The catheter tip position was confirmed with fluoroscopy. There was satisfactory flow in both lumens. The catheter lumens were flushed with saline and heparin was left indwelling in the catheter. A post-procedure image of the ch est was obtained. The neck incision site was closed with a dermabond and dressed sterilely. The lam ter was sutured at the skin surface and exit site also dressed sterilely. The old nontunneled HD cath eter was removed. No immediate complication was identified. DAP 5.14 FLUOROSCOPY TIME: 3.4 minutes. SEDATION: Dr. Sonya Lovelace was personally responsible for the administration of moderate sedation during the procedure performed, including the use of an independent trained observer who had no other duties during the procedure. The drugs utilized were IV fentanyl and versed (see nursing log for details). The total time of supervision by the attending physician was approximately 45 minutes. FINDINGS: Widely patent left IJV. Post procedure image demonstrates smooth course of the hemodialysis catheter with the tip in the right atrium. IMPRESSION: Placement of 14.5 Turkmen glide path, 23 cm long hemodialysis catheter through left internal jugular v ein. Plan: Please contact IR for removal when no longer needed.
--- NOTE | 2024-05-11 14:59 | DVHPN2 ---
Reviewed: Care Plan, H&P, Labs, Medications, Previous Orders, Radiology Changes from previous H/P or p: No Changes General: Per HPI Objective Vitals Vital Signs Date Time Temp Pulse Resp B/P (MAP) Pulse Ox O2 Delivery O2 Flow Rate FiO2 05/11/24 12:51 117 12 103/73 (83) 99 05/11/24 12:21 97.6 97.6 05/10/24 20:00 Nasal Cannula* 2 28 Intake/Output Intake and Output 05/11/24 07:00 Intake Total 1260 ml Output Total 150 ml Balance 1110 ml Intake Oral 800 ml IV Total 460 ml Output Urine Total 150 ml # Bowel Movements 10 General Appearance: Alert, Oriented X3, Cooperative, moderate distress HEENT: Atraumatic, PERRLA, EOMI, Mucous membr. moist/pink Neck: Supple Lungs: Clear to auscultation, Normal air movement Cardiovascular: Regular rate, Normal S1, Normal S2, No murmurs, Gallops, Rubs Abdomen: Normal bowel sounds, Soft, No tenderness Neuro: Cranial nerves 3-12 NL Psych/Mental Status: Mental status NL Medications Current Medications Medications Dose Ordered Sig/Tamy Route Start Time Stop Time Status Last Admin Dose Admin Ondansetron HCl 4 mg Q4HP PRN IV 05/05/24 19:45 05/11/24 11:00 4 MG Nitroglycerin 0.4 mg Q5MINP PRN SL 05/05/24 19:45 Morphine Sulfate 2 mg Q30M PRN IV 05/05/24 19:45 05/06/24 21:00 2 MG Sevelamer HCl 1,600 mg TIDWM PO 05/06/24 12:00 05/11/24 08:28 1,600 MG Lorazepam 0.5 mg Q4HP PRN IV 05/06/24 12:00 05/07/24 01:54 0.5 MG Acetaminophen/ Hydrocodone Bitart 1 tab Q6HPRN PRN PO 05/07/24 22:45 05/08/24 15:48 1 TAB Morphine Sulfate 2 mg Q4HPRN PRN IV 05/08/24 16:00 05/11/24 08:39 2 MG Ceftriaxone Sodium 50 ml @ 100 mls/hr DAILY@09 IV 05/09/24 09:00 05/11/24 08:28 100 MLS/HR Amino Acids 0 ml @ 0 mls/hr PER PHARMACY IV 05/08/24 16:15 Heparin Sodium (Porcine) 5,000 units Q12HR SC 05/08/24 22:00 Hold 05/09/24 07:37 5,000 UNITS Loperamide HCl 2 mg PRN PRN PO 05/08/24 16:15 05/10/24 23:28 2 MG Pantoprazole Sodium 40 mg DAILY IV 05/09/24 10:00 05/10/24 10:11 40 MG Diagnostic Test (Pha) 1 strip Q6HR 05/08/24 18:00 05/11/24 05:25 1 STRIP Insulin Human Regular FOLLOW SLIDING SCALE Q6HR SC 05/08/24 18:00 05/10/24 18:41 2 UNITS Dextrose 50 ml UD IV 05/08/24 16:45 Dextrose 1,000 ml @ 25 mls/hr Q24H IV 05/08/24 19:00 UNV Apixaban 5 mg BID PO 05/09/24 22:00 05/10/24 23:28 5 MG Amino Acids/ Electrolytes/ Dextrose 2,000 ml @ 41 mls/hr DAILY@2200 IV 05/10/24 22:00 05/11/24 02:55 41 MLS/HR Laboratory Results Laboratory Tests 05/10/24 04:50 05/11/24 13:25 Chemistry Test 05/11/24 13:25 Albumin 3.3 g/dL (3.2-4.8) Calcium Level 8.3 mg/dL (8.7-10.4) L Magnesium Level 2.6 mg/dL (1.6-2.6) Phosphorus Level 7.2 mg/dL (2.4-5.1) H Total Protein 5.9 g/dL (5.7-8.2) LFT Test 05/11/24 13:25 Alanine Aminotransferase (ALT) 17 U/L (7-40) Alkaline Phosphatase 86 U/L (46-116) Aspartate Amino Transferase (AST) 23 U/L (13-40) Total Bilirubin 0.3 mg/dL (0.2-1.0) Urinalysis Test 05/06/24 12:45 05/09/24 01:20 Urine Creatinine 149.05 mg/dL (30.0-125.0) H Urine Protein/Creatinine Ratio 0.47 Urine Sodium < 10 mmol/L (40-220) L Urine Total Protein 70.1 mg/dL (1-14) H Urine Color Yellow (Yellow) Urine Clarity Ex.turbid (Clear) Urine pH 5.0 (5.0-9.0) Urine Specific [place] 1.017 (1.001-1.035) Urine Protein 1+ (Negative) H Urine Ketones Negative (Negative) Urine Blood 3+ /uL (Negative) H Urine Nitrite Negative (Negative) Urine Bilirubin Negative (Negative) Urine Urobilinogen Normal mg/dL (Negative) Urine Leukocyte Esterase 3+ /uL (Negative) Urine RBC 194 /hpf (0 - 3) Urine WBC Clumps Present /hpf (None Seen) Urine Microscopic WBC 128 /HPF (0-3) H Urine Squamous Epithelial Cells None seen /hpf (<5) Urine Bacteria Few /hpf (None Seen) H Urine Hyaline Casts Many /lpf (0 - 2) Urine Granular Casts Mod /lpf (0) Urine Yeast (Budding) Loaded /hpf (None Seen) Urine Glucose Normal mg/dL (Normal) Microbiology Microbiology Date/Time Source Procedure Growth Status 05/09/24 10:55 Blood Blood Culture - Preliminary NO GROWTH AFTER 48 HOURS OF INCUBATION. Resulted 05/09/24 04:50 Nose MRSA Screen - Final Complete 05/09/24 01:20 Urine - [place] Urine Culture - Preliminary Resulted 05/07/24 09:00 Ascities Fluid Gram Stain - Final Resulted 05/07/24 09:00 Ascities Fluid Body Fluid Culture - Preliminary Resulted Assessment/Plan My Orders Orders - RAISSA BULL DO Procedure Category Date Status Time * Creative Intern CONS 05/10/24 Transmitted Consult Hepatitis C Antibody LAB 05/10/24 In Process 16:01 Hepatitis B Surface LAB 05/10/24 In Process Antigen 16:01 Quantiferon-Tb Gold LAB 05/10/24 In Process 16:01 Insertion Of Venous XY 05/11/24 Resulted Cath 12:43 Date of Service: May 10, 2024 Billing Provider: RAISSA BULL JIMMY T DO May 11, 2024 14:59
--- NOTE | 2024-05-11 15:05 | DVHPN2 ---
Progress Note Date Seen: May 11, 2024 Resident Creating Document: MICHELLE RODRIGUEZ RESIDENT Medical Necessity Reason Pt with a Central, PICC or Fol: Yes The following are medically ne: Alvarez Catheter Subjective Review of Systems 48-year-old male with a history of colon cancer with metastases to the lymph nodes is presenting with complaints of shortness of breath abdominal pain patient had had paracentesis couple of times. Patient has has got intractable ascites and waiting for chemotherapy had a Port-A-Cath placement. Patient has colon cancer with Mets. Patient will get chemotherapy. Dr. Saldaña is on board. Objective vital signs Vital Sign Date Time Temp Pulse Resp B/P (MAP) Pulse Ox O2 Delivery O2 Flow Rate FiO2 05/11/24 12:51 117 12 103/73 (83) 99 05/11/24 12:21 97.6 97.6 05/10/24 20:00 Nasal Cannula* 2 28 Total Intake and Output 05/10/24 05/10/24 05/11/24 15:00 23:00 07:00 Intake Total 419 ml 241 ml 600 ml Output Total 150 ml Balance 419 ml 241 ml 450 ml medications Current Medications Medications Dose Ordered Sig/Tamy Route Start Time Stop Time Status Last Admin Dose Admin Ondansetron HCl 4 mg Q4HP PRN IV 05/05/24 19:45 05/11/24 11:00 4 MG Nitroglycerin 0.4 mg Q5MINP PRN SL 05/05/24 19:45 Morphine Sulfate 2 mg Q30M PRN IV 05/05/24 19:45 05/06/24 21:00 2 MG Sevelamer HCl 1,600 mg TIDWM PO 05/06/24 12:00 05/11/24 08:28 1,600 MG Lorazepam 0.5 mg Q4HP PRN IV 05/06/24 12:00 05/07/24 01:54 0.5 MG Acetaminophen/ Hydrocodone Bitart 1 tab Q6HPRN PRN PO 05/07/24 22:45 05/08/24 15:48 1 TAB Morphine Sulfate 2 mg Q4HPRN PRN IV 05/08/24 16:00 05/11/24 08:39 2 MG Ceftriaxone Sodium 50 ml @ 100 mls/hr DAILY@09 IV 05/09/24 09:00 05/11/24 08:28 100 MLS/HR Amino Acids 0 ml @ 0 mls/hr PER PHARMACY IV 05/08/24 16:15 Heparin Sodium (Porcine) 5,000 units Q12HR SC 05/08/24 22:00 Hold 05/09/24 07:37 5,000 UNITS Loperamide HCl 2 mg PRN PRN PO 05/08/24 16:15 05/10/24 23:28 2 MG Pantoprazole Sodium 40 mg DAILY IV 05/09/24 10:00 05/10/24 10:11 40 MG Diagnostic Test (Pha) 1 strip Q6HR 05/08/24 18:00 05/11/24 12:00 1 STRIP Insulin Human Regular FOLLOW SLIDING SCALE Q6HR SC 05/08/24 18:00 05/10/24 18:41 2 UNITS Dextrose 50 ml UD IV 05/08/24 16:45 Dextrose 1,000 ml @ 25 mls/hr Q24H IV 05/08/24 19:00 UNV Apixaban 5 mg BID PO 05/09/24 22:00 05/10/24 23:28 5 MG Amino Acids/ Electrolytes/ Dextrose 2,000 ml @ 41 mls/hr DAILY@2200 IV 05/10/24 22:00 05/11/24 02:55 41 MLS/HR Examination Moderately built and nourished male in no acute distress HEENT: Normocephalic atraumatic, mucous membranes moist and pink. Neck: Cervical and supraclavicular nodes normal without enlargement, trachea is midline, thyroid gland is normal without masses. Pulmonary: Clear to auscultation and percussion bilaterally. Cardiac: Regular rate and rhythm. No murmur Abdomen: Soft, nontender,distended, bowel sounds present all 4 quadrants, no guarding, no rigidity, no organomegaly. Extremities: No cyanosis, clubbing, no edema Neurological grossly intact laboratory and microbiology Laboratory Tests 05/11/24 13:25 05/10/24 04:50 Test 05/11/24 13:25 Range/Units Serum Glucose 109 H 74-106 mg/dL Microbiology Date/Time Source Procedure Growth Status 05/09/24 10:55 Blood Blood Culture - Preliminary NO GROWTH AFTER 48 HOURS OF INCUBATION. Resulted 05/09/24 04:50 Nose MRSA Screen - Final Complete 05/09/24 01:20 Urine - [place] Urine Culture - Preliminary Resulted 05/07/24 09:00 Ascities Fluid Gram Stain - Final Resulted 05/07/24 09:00 Ascities Fluid Body Fluid Culture - Preliminary Resulted Problem List/Assessment/Plan Problem List/Assessment/Plan # Metastatic colon cancer # liver mets # Ascites, S/P paracentesis # Intractable nausea and vomiting # QIANA. # Electrolyte imbalance , hyperkalemia # Shortness of breath - CT abdomen on 05/06/2024 - paracentesis done -Patient is tolerating diet -hepatitis panel negative -waiting for restart chemotherapy for colon cancer -[facility]-Onc is on board -order CEA - Overall prognosis is guarded and this was discussed with patient and at the bedside Thank you so much for the opportunity to consult on your patient. GI team will follow the patient. In case of any questions or concerns please feel free to reach out. Case discussed with Dr. Pamela Alexander. The patient and caregiver team agreed to the plan. Plan discussed with: Patient Dietary Evaluation Review Comments: 1) Initiate Nepro tid. Encourage optimal PO intake 2) If anorexia persists, consider increasing TPN rate to meet at least 75% of daily estimated needs. Current TPN regimen meets ~ 33% estimated daily energy needs and 28% estimated daily protein needs. 3) F/u with nephrology and oncology Expected Outcomes/Goals: 1) appetite and labs to improve 2) GI symptoms to improve 3) f/u in 3 days MICHELLE RODRIGUEZ RESIDENT May 11, 2024 15:05
--- NOTE | 2024-05-11 16:12 | DVHPN2 ---
Progress Note Date Seen: May 11, 2024 Medical Necessity Reason Pt with a Central, PICC or Fol: Yes The following are medically ne: Alvarez Catheter Subjective Patient reports: No new complaints (downgraded from icu) Review of Systems: Deferred Objective vital signs Vital Sign Date Time Temp Pulse Resp B/P (MAP) Pulse Ox O2 Delivery O2 Flow Rate FiO2 05/11/24 12:51 117 12 103/73 (83) 99 05/11/24 12:21 97.6 97.6 05/10/24 20:00 Nasal Cannula* 2 28 Total Intake and Output 05/10/24 05/10/24 05/11/24 15:00 23:00 07:00 Intake Total 419 ml 241 ml 600 ml Output Total 150 ml Balance 419 ml 241 ml 450 ml medications Current Medications Medications Dose Ordered Sig/Tamy Route Start Time Stop Time Status Last Admin Dose Admin Ondansetron HCl 4 mg Q4HP PRN IV 05/05/24 19:45 05/11/24 11:00 4 MG Nitroglycerin 0.4 mg Q5MINP PRN SL 05/05/24 19:45 Morphine Sulfate 2 mg Q30M PRN IV 05/05/24 19:45 05/06/24 21:00 2 MG Sevelamer HCl 1,600 mg TIDWM PO 05/06/24 12:00 05/11/24 15:03 1,600 MG Lorazepam 0.5 mg Q4HP PRN IV 05/06/24 12:00 05/07/24 01:54 0.5 MG Acetaminophen/ Hydrocodone Bitart 1 tab Q6HPRN PRN PO 05/07/24 22:45 05/08/24 15:48 1 TAB Morphine Sulfate 2 mg Q4HPRN PRN IV 05/08/24 16:00 05/11/24 08:39 2 MG Ceftriaxone Sodium 50 ml @ 100 mls/hr DAILY@09 IV 05/09/24 09:00 05/11/24 08:28 100 MLS/HR Amino Acids 0 ml @ 0 mls/hr PER PHARMACY IV 05/08/24 16:15 Heparin Sodium (Porcine) 5,000 units Q12HR SC 05/08/24 22:00 Hold 05/09/24 07:37 5,000 UNITS Loperamide HCl 2 mg PRN PRN PO 05/08/24 16:15 05/10/24 23:28 2 MG Pantoprazole Sodium 40 mg DAILY IV 05/09/24 10:00 05/10/24 10:11 40 MG Diagnostic Test (Pha) 1 strip Q6HR 05/08/24 18:00 05/11/24 12:00 1 STRIP Insulin Human Regular FOLLOW SLIDING SCALE Q6HR SC 05/08/24 18:00 05/10/24 18:41 2 UNITS Dextrose 50 ml UD IV 05/08/24 16:45 Dextrose 1,000 ml @ 25 mls/hr Q24H IV 05/08/24 19:00 UNV Apixaban 5 mg BID PO 05/09/24 22:00 05/10/24 23:28 5 MG Amino Acids/ Electrolytes/ Dextrose 2,000 ml @ 41 mls/hr DAILY@2200 IV 05/10/24 22:00 05/11/24 02:55 41 MLS/HR Examination: GENERAL:Abnormal, LUNGS:Abnormal, MSK:Abnormal, SKIN:Abnormal, NEURO:Normal laboratory and microbiology Laboratory Tests 05/11/24 13:25 05/10/24 04:50 Test 05/11/24 13:25 Range/Units Serum Glucose 109 H 74-106 mg/dL Microbiology Date/Time Source Procedure Growth Status 05/09/24 10:55 Blood Blood Culture - Preliminary NO GROWTH AFTER 48 HOURS OF INCUBATION. Resulted 05/09/24 04:50 Nose MRSA Screen - Final Complete 05/09/24 01:20 Urine - [place] Urine Culture - Preliminary Resulted 05/07/24 09:00 Ascities Fluid Gram Stain - Final Resulted 05/07/24 09:00 Ascities Fluid Body Fluid Culture - Preliminary Resulted Problem List/Assessment/Plan Problem List/Assessment/Plan Acute kidney injury likely ATN needing HD Hyperkalemia Metabolic acidosis Hyponatremia Rule out adrenal insufficiency Malignant ascites Stage IV Colon Ca Recommendations HD tomorrow d/w mother and bedside diuretics iv chairtime pending Plan discussed with: Patient, Spouse, Other Dietary Evaluation Review Comments: 1) Initiate Nepro tid. Encourage optimal PO intake 2) If anorexia persists, consider increasing TPN rate to meet at least 75% of daily estimated needs. Current TPN regimen meets ~ 33% estimated daily energy needs and 28% estimated daily protein needs. 3) F/u with nephrology and oncology Expected Outcomes/Goals: 1) appetite and labs to improve 2) GI symptoms to improve 3) f/u in 3 days RUPAL GARCIA MD May 11, 2024 16:12
[2024-05-11] MEDS ORDERED: AMINO ACID INFUSION IN D5W 1,000 ML IV SCH (22:00)
== END 2024-05-11 19:45 | disposition left against medical advice (07) | DRG 435 ==
LOC: ER 15:09 → OVERFLOW 19:34 → DOU IN ICU 05-09 04:45 → TELE-CENTR 05-10 16:09
PROVIDERS: ADMIT Internal Medicine; ATTEND Internal Medicine
PROC: 5A1D70Z Performance of Urinary Filtration, Intermittent, Less than 6 Hours Per Day (ICD-10-PCS; 2024-05-07)
PROC: 02HV33Z Insertion of Infusion Device into Superior Vena Cava, Percutaneous Approach (ICD-10-PCS; 2024-05-07)
PROC: 0W9G3ZZ Drainage of Peritoneal Cavity, Percutaneous Approach (ICD-10-PCS; 2024-05-07)
PROC: 5A1D70Z Performance of Urinary Filtration, Intermittent, Less than 6 Hours Per Day (ICD-10-PCS; principal; 2024-05-08)
PROC: 0W9G3ZZ Drainage of Peritoneal Cavity, Percutaneous Approach (ICD-10-PCS; 2024-05-09)
PROC: 5A1D70Z Performance of Urinary Filtration, Intermittent, Less than 6 Hours Per Day (ICD-10-PCS; 2024-05-10)
PROC: 0JH63XZ Insertion of Tunneled Vascular Access Device into Chest Subcutaneous Tissue and Fascia, Percutaneous Approach (ICD-10-PCS; 2024-05-11)
PROC: 02HV33Z Insertion of Infusion Device into Superior Vena Cava, Percutaneous Approach (ICD-10-PCS; 2024-05-11)
PROC: B518ZZA Fluoroscopy of Superior Vena Cava, Guidance (ICD-10-PCS; 2024-05-11)
PROC: B548ZZA Ultrasonography of Superior Vena Cava, Guidance (ICD-10-PCS; 2024-05-11)
DX: C78.7 Secondary malignant neoplasm of liver and intrahepatic bile duct (principal); J96.01 Acute respiratory failure with hypoxia; K76.7 Hepatorenal syndrome; N17.0 Acute kidney failure with tubular necrosis; R18.0 Malignant ascites; C18.9 Malignant neoplasm of colon, unspecified; E87.20 Acidosis, unspecified; E87.1 Hypo-osmolality and hyponatremia; C77.9 Secondary and unspecified malignant neoplasm of lymph node, unspecified; E87.5 Hyperkalemia; N18.9 Chronic kidney disease, unspecified; F41.9 Anxiety disorder, unspecified; I12.9 Hypertensive chronic kidney disease with stage 1 through stage 4 chronic kidney disease, or unspecified chronic kidney disease; E11.22 Type 2 diabetes mellitus with diabetic chronic kidney disease; Z85.048 Personal history of other malignant neoplasm of rectum, rectosigmoid junction, and anus; Z79.891 Long term (current) use of opiate analgesic; Z79.899 Other long term (current) drug therapy; Z79.84 Long term (current) use of oral hypoglycemic drugs; Z79.2 Long term (current) use of antibiotics; Z79.1 Long term (current) use of non-steroidal anti-inflammatories (NSAID); Z83.3 Family history of diabetes mellitus; Z82.49 Family history of ischemic heart disease and other diseases of the circulatory system
CPT/HCPCS: 36415; 36556; 36558; 36600; 49083; 71045; 74176; 76705; 76942; 77001; 80048; 80053; 81001; 82140; 82306; 82378; 82533; 82550; 82570; 82805; 82962; 83605; 83690; 83735; 83880; 83970; 83986; 84100; 84132; 84156; 84295; 84300; 84478; 85025; 85610; 85730; 86703; 86803; 87040; 87081; 87086; 87205; 87340; 89051; 90935; 93005; 93970; 94640; 96374; 96375; 97163; 99152; C1894; G0378; J1815; J2250; J2405; J2470; P9047